=== PATIENT | female | born 1945 | race Caucasian/White ===

== ENCOUNTER 2019-11-29 16:18 | Inpatient (IN) | payer MEDICARE, SELFPAY ==
--- NOTE | ~2019-11-29 | CT_ITS ---
EXAMINATION: CTA chest PE protocol DATE: 11/30/2019 16:28 INDICATION: Shortness of breath. Tachycardia. TECHNIQUE: Computed tomography angiography (CTA) of the chest was performed with 100 mL Omnipaque-350 intravenous contrast timed to evaluate the pulmonary arteries. Coronal maximum intensity projection 3D-reconstructions were created by the technologist. Automated exposure control and iterative reconst ruction technique were employed. The dose-length product was 406.35 mGy-cm. COMPARISON: CT abdomen and pelvis 11/29/2019, chest 2 views 05/14/2017 FINDINGS: Lung volumes are small. There are widespread peripheral reticular opacities associated with mild groundglass opacities. There is mild atelectasis in the inferior lungs. There are small pleural effusions. Cardiomegaly is noted. There are coronary artery calcifications. No pericardial effusion. There is no pulmonary embolus. There is a large sliding hiatal hernia. There is mild mediastinal lym phadenopathy. There is contrast in the gallbladder, which is normal in size. There is a small volume of ascites. There is severe thoracic spondylosis. IMPRESSION: 1. No pulmonary embolus. Sensitivity is mildly decreased by motion artifact. 2. Diffuse lung disease, likely chronic interstitial lung disease in a pattern of nonspecific interst itial pneumonia (NSIP). Superimposed mild pulmonary edema cannot be excluded. 3. Small pleural effusions. 4. Small volume of ascites. 5. Large sliding hiatal hernia. 6. Cardiomegaly. Reviewed, dictated and finalized at location A. IMPRESSION: 1. No pulmonary embolus. Sensitivity is mildly decreased by motion artifact. 2. Diffuse lung disease, likely chronic interstitial lung disease in a pattern of nonspecific interstitial pneumonia (NSIP). Superimposed mild pulmonary edema cannot be excluded. 3. Small pleural effusions. 4. Small volume of ascites. 5. Large sliding hiatal hernia. 6. Cardiomegaly.
--- NOTE | ~2019-11-29 | CT_ITS ---
EXAMINATION: CTA abdomen pelvis DATE: 11/29/2019 17:32 INDICATION: Lower abdominal pain TECHNIQUE: Computed tomographic angiography (CTA) of the abdomen and pelvis was performed with 100 mL Omnipaque-350 intravenous contrast. Maximum intensity projection 3D-reconstructions of the aorta and other arteries were constructed by the technologist on a separate workstation. The dose-length produ ct (DLP) was 642.84 mGy-cm. Automated exposure control and iterative reconstruction technique were em ployed. COMPARISON: None. FINDINGS: There is a 6 mm nodule of the left lower lobe on image 9. There is mild atelectasis of the visualized lower lobes. Cardiomegaly is noted. There is a moderate-sized hiatal hernia. The liver, sp vasyl, pancreas, gallbladder, and adrenal glands are normal. The kidneys are unremarkable. No patholog ically enlarged abdominal or pelvic lymph nodes are identified. There is a large volume of colonic st ool and mild distention of the colon without focal transition point. The bladder is decompressed by a catheter. There is no free intraperitoneal gas. There is levoscoliosis and severe spondylosis of the lumbar spine. There is no aneurysm or dissection of the aorta. A portion of the left hepatic blood supply arises fr om the left gastric artery. The common hepatic artery arises from the celiac axis. The right hepatic artery arises from the superior mesenteric artery. Single renal arteries are present bilaterally. IMPRESSION: 1. Large volume of colonic stool and mild colonic distention without focal transition point, likely i leus. 2. No aneurysm or dissection of the aorta. 3. 6 mm nodule of the left lower lobe. Follow-up CT in 6-12 months is recommended. Reviewed, dictated and finalized at location A. IMPRESSION: 1. Large volume of colonic stool and mild colonic distention without focal lima sition point, likely ileus. 2. No aneurysm or dissection of the aorta. 3. 6 mm nodule of the left lower lobe. Follow-up CT in 6-12 months is recommend ed.
--- NOTE | ~2019-11-29 | XR_ITS ---
EXAMINATION: XR abdomen/kub 1V INDICATION: Constipation and continued abdominal pain TECHNIQUE: Supine view of the abdomen is obtained. COMPARISON: CT from yesterday FINDINGS: There is a large volume of persistent stool in the right colon. Stool throughout the remain joshua of the colon appears to of largely passed. Contrast from yesterday's CT examination opacifies the urinary bladder. There is lumbar levoscoliosis. IMPRESSION: 1. Persistent large volume of stool in the right colon with apparent interval passage of much of the remaining stool. Reviewed, dictated and finalized at location B. IMPRESSION: 1. Persistent large volume of stool in the right colon with apparent interval p assage of much of the remaining stool.
--- NOTE | ~2019-11-29 | XR_ITS ---
EXAMINATION: XR chest 1V portable INDICATION: Shortness of breath TECHNIQUE: Portable AP chest at 1831 hours COMPARISON: 08/05/2018 FINDINGS: The lung volumes are low. There is mild atelectasis of the lung bases. No pleural effusion or pneumothorax is identified. Cardiomegaly is noted. There is a moderate-sized hiatal hernia. IMPRESSION: 1. Mild atelectasis of the lung bases. 2. Cardiomegaly. 3. Moderate-sized hiatal hernia. Reviewed, dictated and finalized at location A.
--- NOTE | ~2019-11-29 | XR_ITS ---
EXAMINATION: XR chest 1V portable EXAM DATE: 12/05/2019 06:52 INDICATION: Chronic interstitial lung disease. Pneumonia. TECHNIQUE: Portable AP frontal chest x-ray was obtained. Comparison is made to prior examination from 11/29/2019. FINDINGS: The cardiomediastinal silhouette is prominent but magnified on this AP technique. Cardiac s ilhouette is stable in size compared to prior exam. Abnormal reticulation, patient's chronic intersti tial lung disease. Development of some small more confluent patchy basilar regions, mostly retrocardi ac, probably superimposed acute airspace disease. There is no pneumothorax suspected. There are no pl eural effusions. There are mild bony degenerative changes. IMPRESSION: Development of patchy basilar opacities probably acute infectious process on chronic int erstitial lung disease. Reviewed, dictated and finalized at location A. IMPRESSION: Development of patchy basilar opacities probably acute infectious process on chronic interstitial lung disease.
--- NOTE | ~2019-11-29 | XR_ITS ---
EXAMINATION: XR abdomen obstructive series EXAM DATE: 12/07/2019 17:10 INDICATION: Constipation. TECHNIQUE: Frontal upright projection of the upper abdomen, frontal projection of the lower abdomen f or interpretation. Comparison is made to prior examination from 11/30/2019. FINDINGS: There is large amount of ascending and transverse colonic gas, new compared to prior study . There is no organomegaly. There is moderate lumbar levoscoliosis and spondylosis. No free intraperi toneal gas. IMPRESSION: 1. Development of distended air-filled ascending and transverse colon. Reviewed, dictated and finalized at location A.
[2019-11-29 16:28] VITALS: BP 134/83; PULSE 78; RESP 29; TEMP 36.2; O2SAT 98
--- NOTE | 2019-11-29 16:35 | ECG_ITS ---
Measurements Intervals [place] Rate: 77 P: 13 VA: 183 QRS: 75 QRSD: 95 T: -5 QT: 404 QTc: 458 Interpretive Statements SINUS RHYTHM POSSIBLE LEFT ATRIAL ENLARGEMENT CONSIDER INFERIOR INFARCT, AGE INDETERMINATE BORDERLINE ST-T WAVE ABNORMALITY- ANTEROLATERAL LEADS ABNORMAL ECG Electronically Signed On 11-29-2019 20:52:45 CDT by David Elmore D.O.
[2019-11-29 16:36] LABS: Glucose Point of Care 117 (65-105)
[2019-11-29 16:49] LABS: Basophils Absolute Auto 0.1 K/mm3 (0.0-0.1); Basophils Percent Auto 0.6 % (0.2-1.2); Eosinophils Absolute Auto 0.1 K/mm3 (0-0.3); Eosinophils Percent Auto 0.5 % (0-4.4); Hematocrit 46.5 % (37.0-47.0); Immature Granulocyte Absolute 0.18 K/mm3 (0.00-0.031); Immature Granulocyte Percent A 0.9 % (0-0.5); Lymphocytes Absolute Auto 3.04 K/mm3 (0.9-3.2); Lymphocytes Percent Auto 14.9 % (18.3-44.2); Mean Corpuscular HGB Conc 34.4 g/dl (32-36); Mean Corpuscular Volume 84.4 fl (80-100); Mean Platelet Volume 9.6 fl (7.4-10.4); Monocytes Absolute Auto 1.1 K/mm3 (0.1-0.6); Monocytes Percent Auto 5.1 % (2.6-8.5); Neutrophils Absolute Auto 15.9 K/mm3 (1.3-6.7); Platelet Count Result 424 k/mm3 (150-375); Red Blood Count 5.51 M/mm3 (4.2-5.4); Red Cell Distribution Width 12.8 % (11.5-14.5); White Blood Count 20.4 K/mm3 (4.5-10.0)
--- NOTE | 2019-11-29 16:49 | ED.ABDPAIN ---
HPI - Abdominal Pain General Chief Complaint: Abdominal Pain Stated Complaint: ABD Pain, Cramps Time Seen by Provider: 11/29/19 16:42 Source: patient Mode of arrival: ambulatory Limitations: no limitations History of Present Illness HPI narrative: This patient is a 74 year old female who presents for evaluation of dizziness and abdominal pain. Patient reports she has been feeling lightheaded for a couple days. She developed severe lower abdominal pain today. She has associated nausea and worsening lightheadedness. She feels like she is going to pass out. Her son states she was sitting on toilet unable to get up due to feeling so weak. Related Data Home Medications Medication Instructions Recorded Confirmed diclofenac sodium 75 mg 75 mg PO BID 05/18/19 11/29/19 tablet,delayed release lisinopril-hydrochlorothiazide 1 tablet PO DAILY 11/29/19 11/29/19 Allergies Allergy/AdvReac Type Severity Reaction Status Date / Time erythromycin base Allergy Unknown Unknown Verified 11/29/19 17:00 Sulfa (Sulfonamide Allergy Unknown Unknown Verified 11/29/19 17:00 Antibiotics) Review of Systems Review of Systems: All systems reviewed & are unremarkable except as noted in HPI and below Constitutional: Constitutional: Reports fatigue and Reports weakness ENT: Reports dizziness Cardiovascular: Cardiovascular: Denies chest pain Respiratory: Respiratory: Denies cough and Denies dyspnea Gastrointestinal: Gastrointestinal: Reports abdominal pain, Denies constipation, Denies diarrhea, Reports nausea and Denies vomiting Genitourinary: Genitourinary: Denies hematuria, Denies flank pain and Denies vaginal discharge [facility] Past Medical History Medical History (Updated 11/30/19 @ 02:05 by Tana Gordon DO) Anxiety Chronic ankle pain, bilateral Chronic interstitial lung disease however patient denied lung disease at the time of my evaluation Depression Dyslipidemia Essential (primary) hypertension Headache, migraine Hypertension Intractable migraine without aura and without status migrainosus Lichen planus Lumbar spondylosis severe noted on CT scan 11/29/2019 Scar tissue both eye-repair in 2017 Surgical History Surgical History History of cataract extraction 12/18/2014 and 2017 Family History Family History Other Family history of coronary artery disease Family history of lung cancer Family history of throat cancer Hypertension Social History Social History (Updated 11/30/19 @ 01:53 by Tana Gordon DO) Social History: Primary care physician: Dr. 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 Gender identity (if verbalized by the patient): Female Sexual Orientation (if Verbalized by the Patient): Straight or Heterosexual Spiritual care concerns: No Exam Const: General: diaphoretic and ill appearing acutely Orientation/consciousness: patient oriented x3 Eyes: EOM: EOMs intact bilaterally Resp: Effort & Inspection: normal respiratory effort Auscultation: clear to auscultation bilaterally Cardio: Rate: regular rate Rhythm: regular rhythm GI: Inspection: distended GI Palp: Yes Soft to palpation, No Guarding due to palpation present (GI) and No Rigid due to palpation Auscultation: absent bowel sounds Skin: General skin exam: normal color Rashes: no rashes Neuro: General: patient oriented x3 and moves all extremities Course Consultations Consultation #1: I discussed case with Marry. She accepts for dehydration and acute renal failure. Will order blood cultures . No source for anti
[2019-11-29] MEDS: MORPHINE SULFATE 4 MG/ML INJ IV PUSH (16:57)
[2019-11-29] MEDS: SODIUM CHLORIDE 0.9% IV 1,000 ML 999 ML IV CONT ×2 (16:57→17:51)
[2019-11-29] MEDS: ONDANSETRON INJ 4 MG/2 ML VIAL IV PUSH ×2 (16:57→23:10)
[2019-11-29 17:00] VITALS: BP 126/83; PULSE 76; RESP 22; TEMP 36.2; O2SAT 98
[2019-11-29 17:02] LABS: Alanine Aminotransferase 23 U/L (4-35); Albumin Level 5.1 g/dL (3.5-5.1); Alkaline Phosphatase 198 U/L (38-126); Anion Gap 23.6 mmol/L (7-16); Aspartate Amino Transferase 37 U/L (14-36); Bilirubin,Total 0.6 mg/dL (0.2-1.3); Blood Urea Nitrogen 43 mg/dL (7-17); Carbon Dioxide 18 mmol/L (22-30); Chloride 91 mmol/L (98-107); Estimated CRCL calculation 30 ml/min; Estimated Glomerular Filt Rate 37; Glucose 225 mg/dL (65-105); Lipase 294 U/L (23-300); Potassium 3.6 mmol/L (3.4-5.0); Sodium 129 mmol/L (137-145)
[2019-11-29 17:11] LABS: Lactic Acid Reflex 2.3 mmol/L (0.7-2.1)
[2019-11-29 17:48] LABS: Add Urine Microscopic? YES; Appearance Urine Clear (Clear); Bacteria Urine Trace /hpf; Bilirubin Urine Negative (Negative); Blood Urine Negative (Negative); Color Urine Yellow (Yellow); Glucose Urine UA Negative (Negative); Ketones Urine Negative (Negative); Leukocyte Esterase Ur Trace LEU/UL (Negative); Mucus Urine Rare /lpf; Nitrate Urine Negative (Negative); Protein Urine 1+ mg/dL (Negative); Specific Grav Ur 1.026 (1.001-1.035); Squamous Epithelial Cell Urine Occasional /hpf (Few); WBC Urine 0-3 /hpf
[2019-11-29 19:18] VITALS: BP 168/44; PULSE 87; RESP 20; O2SAT 99
[2019-11-29 19:42] VITALS: BP 162/95; PULSE 92; RESP 18; TEMP 36.4; O2SAT 98
[2019-11-29 19:44] LABS: Troponin I < 0.012 ng/mL (0.000-0.034)
[2019-11-29 19:57] LABS: Reflex Lactic Acid Yes or No Add Lactic
[2019-11-29 20:00] VITALS: BP 151/91; PULSE 106; RESP 20; TEMP 37; O2SAT 99; BMI 31.2
--- NOTE | 2019-11-29 20:18 | ADMGEN ---
This patient, Corrine Leger, was admitted to [facility] Surg Room 303-01. Patient/family oriented to hospital policies and general routines including ID bracelet, bed and alarms, visiting hours, pain management, procedures, bathroom and other care routines, personal items, smoking policy, room service/diet, and visiting hours. Valuables list has been completed. Information on how to activate the Rapid Response Team has been discussed. Patient/Family are encouraged to report perceived risks to care and to ask questions if they do not understand what they are told or what they should do.
[2019-11-29 20:30] LABS: Lactic Acid 2.6 mmol/L (0.7-2.1)
[2019-11-29] MEDS: SODIUM CHLORIDE 0.9% IV 1,000 ML 125 ML IV CONT (20:46)
[2019-11-29 22:30] VITALS: BP 136/85; PULSE 98; RESP 20; TEMP 36.7; O2SAT 98
[2019-11-30] VITALS (9 sets, daily range): BP systolic 100–126; BP diastolic 64–80; PULSE 100–124; RESP 20; TEMP 36.2–37.1; O2SAT 93–98
--- NOTE | 2019-11-30 01:02 | PM.IMHP ---
H&P: HPI History of Present Illness Chief complaint: acute renal failure, dehydration, Narrative: Date and time of patient contact: 11/29/2019 at 10:30 p.m. Corrine Leger is a 74 year old female with a past medical history of intermittent constipation, hypertension and migraines who presented to the ER with abdominal pain and weakness. 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 She started feeling lightheaded a few days ago. She reports that she has been lightheaded when she is sitting down but it is worse when she is up and moving. she feels as if she is going to pass out when she gets up to move. She thought it was just because of the heat. She was having some intermittent nausea as well but denies having any vomiting. she does have intermittent constipation she had a very small amount of stool yesterday. She does not know if the stool was hard. She denies any hematochezia or melena. Her last complete bowel movement was 3 or 4 days ago. She reports that she has had abdominal pain for the last 3 days the abdominal pain is generalized. The location of her abdominal pain is variable each time it occurs. The pain is crampy in nature and has become progressively worse in pain. Her pain is currently an 8/10 in intensity. She reports that over the last 24 hours she has become so because she was unable to stand up off the toilet. She feels as if she has to have a bowel movement. she denies any chest pain or specific shortness of breath. She has not had any cough or congestion. Review of Systems Review of Systems: Narrative: 12 systems were reviewed with pertinent positives and negatives per HPI. Except as documented in the HPI, all other systems were reviewed and are negative. [facility] Past Medical History Medical History (Updated 11/30/19 @ 02:05 by Tana oGrdon DO) Anxiety Chronic ankle pain, bilateral Chronic interstitial lung disease however patient denied lung disease at the time of my evaluation Depression Dyslipidemia Essential (primary) hypertension Headache, migraine Hypertension Intractable migraine without aura and without status migrainosus Lichen planus Lumbar spondylosis severe noted on CT scan 11/29/2019 Scar tissue both eye-repair in 2017 Surgical History Surgical History History of cataract extraction 12/18/2014 and 2017 Family History Family History Other Family history of coronary artery disease Family history of lung cancer Family history of throat cancer Hypertension Social History Social History (Updated 11/30/19 @ 01:53 by Tana Gordon DO) Social History: Primary care physician: Dr. Rustam Ulloa Code status: Full code Smoking status: Never smoker Second hand tobacco smoke exposure: No Alcohol intake: never Substance use: never Substance use type: does not use Living arrangements: alone Additional occupation/education comments: She works at a [employer] facility. Gender identity (if verbalized by the patient): Female Sexual Orientation (if Verbalized by the Patient): Straight or Heterosexual Spiritual care concerns: No Meds Home Medications and Allergies Home Medications Medication Instructions Recorded Confirmed Type sumatriptan succinate 50 mg tablet 50 mg PO .COMPLEX PRN #12 tablet 03/27/19 11/29/19 Rx diclofenac sodium 75 mg 75 mg PO BID 05/18/19 11/29/19 History tablet,delayed release pravastatin 20 mg tablet 20 mg PO .QHS #90 tablet 07/31/19 11/29/19 Rx lisinopril-hydrochlorothiazide 1 tablet PO DAILY 11/29/19 11/29/19 History Allergies Allergy/AdvReac Type Severity Reaction Status Date / Time erythromycin base Allergy Unknown Unknown Verified 11/29/19 17:00 Sulfa (Sulfonamide Allergy Unknown Unknown Verified 11/29/19 17:00 Antibiotics)
[2019-11-30] MEDS: DOCUSATE SODIUM 400 MG/400 ML ENEMA RECTAL (01:49)
[2019-11-30 02:27] LABS: Lactic Acid Reflex 5.6 mmol/L (0.7-2.1)
[2019-11-30] MEDS: SODIUM CHLORIDE 0.9% IV 1,000 ML 999 ML IV CONT (02:43)
[2019-11-30] MEDS: SODIUM CHLORIDE 0.9% IV 1,000 ML 125 ML IV CONT ×2 (05:31→16:49)
[2019-11-30 06:31] LABS: Hematocrit 45.2 % (37.0-47.0); Hemoglobin 15.1 g/dL (12.0-15.0); Mean Corpuscular HGB Conc 33.4 g/dl (32-36); Mean Corpuscular Volume 86.8 fl (80-100); Mean Platelet Volume 9.8 fl (7.4-10.4); Platelet Count Result 387 k/mm3 (150-375); Red Blood Count 5.21 M/mm3 (4.2-5.4); Red Cell Distribution Width 13.1 % (11.5-14.5); White Blood Count 19.9 K/mm3 (4.5-10.0)
[2019-11-30 07:04] LABS: Alanine Aminotransferase 17 U/L (4-35); Albumin Level 3.3 g/dL (3.5-5.1); Alkaline Phosphatase 404 U/L (38-126); Anion Gap 14.4 mmol/L (7-16); Aspartate Amino Transferase 42 U/L (14-36); Bilirubin,Total 0.6 mg/dL (0.2-1.3); Blood Urea Nitrogen 43 mg/dL (7-17); Calcium 7.9 mg/dL (8.4-10.2); Carbon Dioxide 19 mmol/L (22-30); Chloride 103 mmol/L (98-107); Estimated CRCL calculation 38 ml/min; Estimated Glomerular Filt Rate 49; Glucose 151 mg/dL (65-105); Potassium 3.4 mmol/L (3.4-5.0); Sodium 133 mmol/L (137-145)
[2019-11-30 08:10] LABS: Band Neutrophils Percent 18 % (0-6); Lymphocytes Absolute Manual 1.19 K/mm3 (1.1-4.5); Monocytes Absolute Manual 0.39 K/mm3 (0.1-0.90); Monocytes Percent Manual 2 % (3-9); Neutrophils Percent Manual 74 % (46-73); Platelet Estimate Adequate (Adequate); Total Cells Counted 100
[2019-11-30] MEDS: DOCUSATE SODIUM 100 MG CAPSULE PO ×2 (10:34→20:51)
[2019-11-30] MEDS: ENOXAPARIN 40 MG/0.4 ML SYRINGE SUB-Q (10:37)
[2019-11-30 11:53] LABS: Hemoglobin A1C 5.6 % (<5.7)
--- NOTE | 2019-11-30 13:54 | PM.IMPN ---
Progress Note: A&P Assessment and Plan (1) Leukocytosis: Code(s): D72.829 - Elevated white blood cell count, unspecified Status: Acute Assessment and Plan: Uncertain etiology. No CT evidence of acute infection or fever. Possibly due to dehydration, hemoconcentration or acute phase reactant. Repeat CBC this morning showed only slight improvement from 20,400 to 19,900 with neutrophil count at 74%. She does not have any urinary symptoms. She is having some shortness of breath but denies any cough, fevers, chills. She is requiring 1 L of oxygen. I will order CTA Chest to further evaluate for PE or underlying pneumonia. Will recheck a stat KUB to further evaluate her constipation improvement or for any signs of perforation and recheck CBC, CMP, lactic acid. Continue monitoring leukocytosis and further work up. (2) Lactic acidosis: Code(s): E87.2 - Acidosis Status: Acute Assessment and Plan: uncertain etiology. recheck lactic at 2:00 a.m. was more elevated at 5.6. Will recheck since she is still having issues. She has been afebrile, BP stable, respiratory rate stable, stable on 1L via NC at 95%, and she has been tachycardic. Still not found to have an underlying infection at this time, so no IV antibiotics have been started at this time. (3) Constipation: Code(s): K59.00 - Constipation, unspecified Status: Acute Assessment and Plan: CTA of her abdomen pelvis was ordered in the ER which found her to have large volume of colonic stool and mild colonic distension without focal transition point, likely ileus. Otherwise no acute abnormality to her abdomen. Colace enema Was given last night and she has had multiple bowel movements since then and is still having abdominal cramping. Repeat KUB Showed persistent large volume of stool in the right colon with apparent interval passage of much of the remaining stool. Will continue with treatment of constipation with MiraLax b.i.d., Colace b.i.d., and give 1 dose of mineral oil continue monitoring bowel movements. (4) Sinus tachycardia: Code(s): R00.0 - Tachycardia, unspecified Status: Acute Assessment and Plan: Possibly due to volume depletion. however the patient was not tachycardic in the ER and is become tachycardic since arrival to the floor. The greater portion of this is likely due to the patient's pain. Concerned with the patient's tachycardia and the feeling that she is having shallow breathing and is short of breath. Her pulse ox is 95% on 1 L via nasal cannula but feels like she needs more oxygen. will order a stat CTA of her chest to rule out an underlying pulmonary embolism or underlying infection causing her tachycardia tele shows sinus tachycardia with a heart rate of 107, with some PVCs and PACs noted. No acute arrhythmia. Continue IV fluid hydration and monitor on telemetry (5) Acute renal injury: Code(s): N17.9 - Acute kidney failure, unspecified Status: Acute Assessment and Plan: possibly due to volume depletion and Nephro toxic medication use with diclofenacand MANNIE-inhibitor use at home. Her creatinine has improved down to normal at 1.0 after IV fluid hydration overnight will continue IV fluids at this time and monitoring renal function, Urine output, and avoid nephrotoxic medications. (6) Incidental lung nodule, > 3mm and < 8mm: Code(s): R91.1 - Solitary pulmonary nodule Status: Acute Assessment and Plan: follow-up CT in 6-12 months (7) Hyponatremia: Code(s): E87.1 - Hypo-osmolality and hyponatremia Status: Acute Assessment and Plan: Acute on chronic. Likely
[2019-11-30 14:05] LABS: Hematocrit 41.9 % (37.0-47.0); Hemoglobin 14.4 g/dL (12.0-15.0); Mean Corpuscular HGB Conc 34.4 g/dl (32-36); Mean Corpuscular Hemoglobin 29.4 pg (26-34); Mean Corpuscular Volume 85.5 fl (80-100); Mean Platelet Volume 9.7 fl (7.4-10.4); Platelet Count Result 302 k/mm3 (150-375); Red Cell Distribution Width 13.3 % (11.5-14.5); White Blood Count 21.8 K/mm3 (4.5-10.0)
[2019-11-30 14:16] LABS: Lactic Acid Reflex 2.5 mmol/L (0.7-2.1)
[2019-11-30 14:17] LABS: Alanine Aminotransferase 18 U/L (4-35); Albumin Level 3.3 g/dL (3.5-5.1); Alkaline Phosphatase 396 U/L (38-126); Anion Gap 12.8 mmol/L (7-16); Aspartate Amino Transferase 35 U/L (14-36); Bilirubin,Total 0.4 mg/dL (0.2-1.3); Blood Urea Nitrogen 37 mg/dL (7-17); Calcium 7.7 mg/dL (8.4-10.2); Carbon Dioxide 18 mmol/L (22-30); Chloride 103 mmol/L (98-107); Estimated CRCL calculation 46 ml/min; Estimated Glomerular Filt Rate > 60; Glucose 180 mg/dL (65-105); Potassium 3.8 mmol/L (3.4-5.0); Sodium 130 mmol/L (137-145)
[2019-11-30 14:28] LABS: Band Neutrophils Percent 12 % (0-6); Monocytes Absolute Manual 1.52 K/mm3 (0.1-0.90); Monocytes Percent Manual 7 % (3-9); Neutrophils Absolute Manual 18.96 K/mm3 (1.7-7.2); Neutrophils Percent Manual 75 % (46-73); Platelet Estimate Adequate (Adequate); Total Cells Counted 100
[2019-11-30] MEDS: DICYCLOMINE HCL 10 MG CAPSULE 20 MG PO ×2 (16:45→20:50)
[2019-11-30] MEDS: MINERAL OIL 30 ML UDC PO (16:46)
[2019-11-30] MEDS: METOCLOPRAMIDE HCL INJ 10 MG/2 ML VIAL IV PUSH (16:47)
[2019-11-30] MEDS: polyethylene glycoL 3350 17 GM POWD.PACK PO (16:47)
[2019-11-30 17:02] LABS: Reflex Lactic Acid Yes or No Add Lactic
[2019-11-30 17:24] LABS: Lactic Acid 2.6 mmol/L (0.7-2.1)
[2019-11-30] MEDS: SODIUM CHLORIDE 0.9% IV 1,000 ML 75 ML IV CONT (18:46)
[2019-12-01] VITALS (13 sets, daily range): BP systolic 152–157; BP diastolic 84–93; PULSE 94–111; RESP 18–22; TEMP 36.4–36.8; O2SAT 95–97
[2019-12-01] MEDS: SODIUM CHLORIDE 0.9% IV 1,000 ML 75 ML IV CONT ×2 (04:10→18:07)
[2019-12-01 05:54] LABS: Basophils Percent Auto 0.1 % (0.2-1.2); Hematocrit 38.2 % (37.0-47.0); Hemoglobin 12.9 g/dL (12.0-15.0); Immature Granulocyte Percent A 0.6 % (0-0.5); Lymphocytes Absolute Auto 0.67 K/mm3 (0.9-3.2); Lymphocytes Percent Auto 3.8 % (18.3-44.2); Mean Corpuscular HGB Conc 33.8 g/dl (32-36); Mean Corpuscular Hemoglobin 28.9 pg (26-34); Mean Corpuscular Volume 85.5 fl (80-100); Mean Platelet Volume 9.5 fl (7.4-10.4); Monocytes Absolute Auto 1.7 K/mm3 (0.1-0.6); Monocytes Percent Auto 9.7 % (2.6-8.5); Neutrophils Absolute Auto 15.1 K/mm3 (1.3-6.7); Neutrophils Percent Auto 85.8 % (45.5-73.1); Platelet Count Result 267 k/mm3 (150-375); Red Blood Count 4.47 M/mm3 (4.2-5.4); Red Cell Distribution Width 13.4 % (11.5-14.5); White Blood Count 17.6 K/mm3 (4.5-10.0)
[2019-12-01 06:02] LABS: Lactic Acid 1.9 mmol/L (0.7-2.1)
[2019-12-01 06:03] LABS: Alanine Aminotransferase 17 U/L (4-35); Albumin Level 3.2 g/dL (3.5-5.1); Alkaline Phosphatase 343 U/L (38-126); Anion Gap 11.6 mmol/L (7-16); Aspartate Amino Transferase 37 U/L (14-36); Bilirubin,Total 0.3 mg/dL (0.2-1.3); Blood Urea Nitrogen 31 mg/dL (7-17); Calcium 7.7 mg/dL (8.4-10.2); Carbon Dioxide 22 mmol/L (22-30); Chloride 100 mmol/L (98-107); Estimated CRCL calculation 58 ml/min; Estimated Glomerular Filt Rate > 60; Glucose 125 mg/dL (65-105); Potassium 3.6 mmol/L (3.4-5.0); Sodium 130 mmol/L (137-145)
[2019-12-01] MEDS: DOCUSATE SODIUM 100 MG CAPSULE PO ×2 (09:32→21:23)
[2019-12-01] MEDS: DICYCLOMINE HCL 10 MG CAPSULE 20 MG PO ×4 (09:32→21:24)
[2019-12-01] MEDS: ENOXAPARIN 40 MG/0.4 ML SYRINGE SUB-Q (09:33)
[2019-12-01] MEDS: ACETAMINOPHEN 325 MG TABLET 650 MG PO (09:33)
--- NOTE | 2019-12-01 13:39 | PM.IMPN ---
Progress Note: A&P Assessment and Plan (1) Leukocytosis: Code(s): D72.829 - Elevated white blood cell count, unspecified Status: Acute Assessment and Plan: WCC improving BC negative to date Pt started on IV rocephin and oral doxycycline CTchest ? pneumonia. (2) Lactic acidosis: Code(s): E87.2 - Acidosis Status: Acute Assessment and Plan: uncertain etiology. ? CAP (3) Constipation: Code(s): K59.00 - Constipation, unspecified Status: Acute Assessment and Plan: CTA of her abdomen pelvis was ordered in the ER which found her to have large volume of colonic stool and mild colonic distension without focal transition point, likely ileus. Constipation improving on MiraLax b.i.d., Colace b.i.d and give 1 dose of mineral oil Having good bowel movements. (4) Sinus tachycardia: Code(s): R00.0 - Tachycardia, unspecified Status: Acute Assessment and Plan: Possibly due to volume depletion. or Sepsis started iv ABX today Long discussion with son discuused labs and XRay and CT scans explained ? CAP Pt does not look so unwell for COVID no fevers mentioned (5) Acute renal injury: Code(s): N17.9 - Acute kidney failure, unspecified Status: Resolved Assessment and Plan: With IV fluids at this time and monitoring renal function, Urine output, and avoid nephrotoxic medications. (6) Incidental lung nodule, > 3mm and < 8mm: Code(s): R91.1 - Solitary pulmonary nodule Status: Acute Assessment and Plan: follow-up CT in 6-12 months (7) Hyponatremia: Code(s): E87.1 - Hypo-osmolality and hyponatremia Status: Acute Assessment and Plan: Acute on chronic. (8) Hyperglycemia: Code(s): R73.9 - Hyperglycemia, unspecified Status: Acute Assessment and Plan: Patient denies history of diabetes. Hemoglobin A1c was 5.6%. No need to further evaluate her glucose levels. Subjective Date/time seen: 12/01/19 13:39 Interval history: 74 year old female with a past medical history of intermittent constipation, hypertension and migraines who presented to the ER with abdominal pain and weakness. 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 SOB ongoing, cough started today. no fever. headache history of headache Review of Systems Review of Systems: All systems reviewed & are unremarkable except as noted in HPI and below Exam Const: General: cooperative and healthy appearing; No in distress Nutritional Appearance: overweight Orientation/consciousness: oriented to person HENMT: Head: normal to inspection Resp: Effort & Inspection: tachypneic and other (Few wheezes in lungs ) Cardio: Rate: regular rate Rhythm: regular rhythm GI: Inspection: normal to inspection GI Palp: No abdominal tenderness, No Guarding due to palpation present (GI) and No Hepatomegaly present Auscultation: normal bowel sounds Neuro: General: oriented to person Objective Data Vital Signs Vital Signs: Vital Signs - 24 hr 11/30/19 14:00 11/30/19 16:00 11/30/19 20:00 Temperature 36.2 C L Pulse Rate 107 H 107 H 102 H Respiratory Rate 20 Blood Pressure 126/80 Pulse Oximetry 93 11/30/19 22:00 12/01/19 00:00 12/01/19 04:00 Temperature 37.1 C Pulse Rate 100 103 H 100 Respiratory Rate 20 Blood Pressure 123/70 Pulse Oximetry 98 12/01/19 05:35 12/01/19 12:00 Temperature 36.7 C Pulse Rate 108 H 111 H Respiratory Rate 21 H Blood Pressure 152/88 H Pulse Oximetry 97 Intake/Output Inta
[2019-12-01] MEDS: ALBUTEROL SULFATE NEB 2.5 MG/0.5 ML INH INHALATION ×2 (14:42→20:42)
[2019-12-01] MEDS: polyethylene glycoL 3350 17 GM POWD.PACK PO (18:09)
[2019-12-01] MEDS: DOXYCYCLINE HYCLATE 100 MG TABLET PO (21:25)
[2019-12-02] VITALS (14 sets, daily range): BP systolic 152–162; BP diastolic 81–98; PULSE 88–109; RESP 16–22; TEMP 36.7–37; O2SAT 93–98
[2019-12-02] MEDS: ALBUTEROL SULFATE NEB 2.5 MG/0.5 ML INH INHALATION (03:10)
--- NOTE | 2019-12-02 03:25 | PCRCNOTE ---
03:22 Gave PT PRN NEB. UPDATED RN AFTER NEB TX ABOUT FINE CRACKLES IN LUNG SOUNDS THROUGHOUT AND BASES ALSO DIM.
--- NOTE | 2019-12-02 03:46 | PC.NURSE ---
O3:20 pt c/o increased sob, prn breathing treatment given and fan,iv fluids running 75 ml/hr,lungs with fine crackles bases,more in lt base,fluids stopped, Dr Evan boland given condition report, IV fluid order to dc,no lasix now.
[2019-12-02 06:15] LABS: Hematocrit 32.8 % (37.0-47.0); Hemoglobin 11.1 g/dL (12.0-15.0); Mean Corpuscular HGB Conc 33.8 g/dl (32-36); Mean Corpuscular Hemoglobin 28.8 pg (26-34); Mean Platelet Volume 9.3 fl (7.4-10.4); Platelet Count Result 250 k/mm3 (150-375); Red Blood Count 3.86 M/mm3 (4.2-5.4); Red Cell Distribution Width 13.3 % (11.5-14.5); White Blood Count 13.8 K/mm3 (4.5-10.0)
[2019-12-02 06:47] LABS: Anion Gap 12.7 mmol/L (7-16); Blood Urea Nitrogen 24 mg/dL (7-17); Calcium 8.1 mg/dL (8.4-10.2); Carbon Dioxide 22 mmol/L (22-30); Chloride 100 mmol/L (98-107); Estimated CRCL calculation 67 ml/min; Estimated Glomerular Filt Rate > 60; Glucose 126 mg/dL (65-105); Potassium 3.7 mmol/L (3.4-5.0); Sodium 131 mmol/L (137-145)
[2019-12-02] MEDS: DOXYCYCLINE HYCLATE 100 MG TABLET PO ×2 (08:05→20:07)
[2019-12-02] MEDS: DICYCLOMINE HCL 10 MG CAPSULE 20 MG PO ×4 (08:05→20:07)
[2019-12-02] MEDS: DOCUSATE SODIUM 100 MG CAPSULE PO ×2 (08:05→20:07)
[2019-12-02] MEDS: ENOXAPARIN 40 MG/0.4 ML SYRINGE SUB-Q (08:06)
[2019-12-02] MEDS: polyethylene glycoL 3350 17 GM POWD.PACK PO ×2 (08:06→16:35)
--- NOTE | 2019-12-02 11:56 | PM.IMPN ---
Progress Note: A&P Assessment and Plan (1) Leukocytosis: Code(s): D72.829 - Elevated white blood cell count, unspecified Status: Acute Assessment and Plan: WCC improving BC negative to date Pt started on IV rocephin and oral doxycycline CTchest ? pneumonia. (2) Lactic acidosis: Code(s): E87.2 - Acidosis Status: Acute Assessment and Plan: uncertain etiology. ? CAP (3) Constipation: Code(s): K59.00 - Constipation, unspecified Status: Acute Assessment and Plan: CTA of her abdomen pelvis was ordered in the ER which found her to have large volume of colonic stool and mild colonic distension without focal transition point, likely ileus. Constipation improving on MiraLax b.i.d., Colace b.i.d and give 1 dose of mineral oil Having good bowel movements. (4) Sinus tachycardia: Code(s): R00.0 - Tachycardia, unspecified Status: Acute Assessment and Plan: Possibly due to volume depletion. or Sepsis started iv ABX today likely secondary to CAP can dc telemetry (5) Acute renal injury: Code(s): N17.9 - Acute kidney failure, unspecified Status: Resolved Assessment and Plan: With IV fluids at this time and monitoring renal function, Urine output, and avoid nephrotoxic medications.stop iv fluids (6) Incidental lung nodule, > 3mm and < 8mm: Code(s): R91.1 - Solitary pulmonary nodule Status: Acute Assessment and Plan: follow-up CT in 6-12 months (7) Hyponatremia: Code(s): E87.1 - Hypo-osmolality and hyponatremia Status: Acute Assessment and Plan: Acute on chronic. (8) Hyperglycemia: Code(s): R73.9 - Hyperglycemia, unspecified Status: Acute Assessment and Plan: Patient denies history of diabetes. Hemoglobin A1c was 5.6%. No need to further evaluate her glucose levels. Subjective Date/time seen: 12/02/19 11:56 Interval history: 74 year old female with a past medical history of intermittent constipation, hypertension and migraines who presented to the ER with abdominal pain and weakness. 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 SOB ongoing, cough ongoing. no fever. headache history of headache. Wcc improving after starting IV abx. Bc negative to date Review of Systems Respiratory: Respiratory: Reports chest congestion, Reports cough and Reports dyspnea Exam Const: General: cooperative and healthy appearing; No in distress Nutritional Appearance: overweight Orientation/consciousness: oriented to person Resp: Effort & Inspection: tachypneic and other (Few wheezes in lungs ) Cardio: Rate: regular rate Rhythm: regular rhythm GI: Inspection: normal to inspection Auscultation: normal bowel sounds Neuro: General: oriented to person Objective Data Vital Signs Vital Signs: Vital Signs - 24 hr 12/01/19 12:00 12/01/19 14:00 12/01/19 14:07 Temperature 36.4 C Pulse Rate 111 H 102 H Respiratory Rate 18 Blood Pressure 157/84 H Pulse Oximetry 96 96 12/01/19 14:42 12/01/19 14:49 12/01/19 16:00 Temperature Pulse Rate 95 98 94 Respiratory Rate 18 18 Blood Pressure Pulse Oximetry 12/01/19 20:00 12/01/19 20:43 12/01/19 20:54 Temperature Pulse Rate 102 H 99 103 H Respiratory Rate 20 22 H 20 Blood Pressure Pulse Oximetry 96 95 12/01/19 21:34 12/02/19 00:00 12/02/19 03:10 Temperature 36.8 C Pulse Rate 102 H 102 H 109 H Respiratory Rate 20 Blood Pressure 155/93 H Pulse Oximetry 96 93 12/02/19 03:11 12/02/19
--- NOTE | 2019-12-02 13:57 | PCPTNOTE ---
Patient refused treatment this session stating that she was fatigued from OT this AM. Pt requested that therapy come back tomorrow.
[2019-12-02] MEDS: FAMOTIDINE 10 MG TABLET PO (20:37)
[2019-12-03 06:00] VITALS: BP 156/84; PULSE 82; RESP 20; TEMP 36.9; O2SAT 97
[2019-12-03 06:35] LABS: Hematocrit 31.3 % (37.0-47.0); Hemoglobin 10.7 g/dL (12.0-15.0); Mean Corpuscular HGB Conc 34.2 g/dl (32-36); Mean Corpuscular Hemoglobin 28.9 pg (26-34); Mean Corpuscular Volume 84.6 fl (80-100); Mean Platelet Volume 9.6 fl (7.4-10.4); Platelet Count Result 261 k/mm3 (150-375); Red Cell Distribution Width 13.6 % (11.5-14.5); White Blood Count 11.7 K/mm3 (4.5-10.0)
[2019-12-03 08:44] VITALS: BP 146/81; PULSE 88; RESP 18; O2SAT 98
[2019-12-03] MEDS: ENOXAPARIN 40 MG/0.4 ML SYRINGE SUB-Q (08:46)
[2019-12-03] MEDS: DOXYCYCLINE HYCLATE 100 MG TABLET PO ×2 (08:46→21:20)
[2019-12-03] MEDS: DOCUSATE SODIUM 100 MG CAPSULE PO (08:47)
[2019-12-03] MEDS: DICYCLOMINE HCL 10 MG CAPSULE 20 MG PO ×4 (08:47→21:20)
[2019-12-03] MEDS: FAMOTIDINE 10 MG TABLET PO ×2 (08:47→21:20)
--- NOTE | 2019-12-03 10:17 | ECG_ITS ---
Measurements Intervals Many Rate: 87 P: 8 OK: 188 QRS: 16 QRSD: 98 T: -12 QT: 352 QTc: 424 Interpretive Statements SINUS RHYTHM BORDERLINE R WAVE PROGRESSION, ANTERIOR LEADS CONSIDER INFERIOR INFARCT, AGE INDETERMINATE BORDERLINE T WAVE ABNORMALITY- ANTERIOR LEADS BASELINE ARTIFACT- II, III, V3 ABNORMAL ECG Electronically Signed On 12-03-2019 11:39:29 CDT by David Elmore D.O.
[2019-12-03] MEDS: lisinopriL 10 MG TABLET PO (10:37)
[2019-12-03] MEDS: hydroCHLOROthiazide 12.5 MG CAPSULE PO (10:37)
[2019-12-03 11:00] VITALS: O2SAT 96
[2019-12-03 11:45] VITALS: O2SAT 93
--- NOTE | 2019-12-03 11:50 | PM.IMPN ---
Progress Note: A&P Assessment and Plan (1) Leukocytosis: Code(s): D72.829 - Elevated white blood cell count, unspecified Status: Acute Assessment and Plan: WCC improving BC negative to date Pt started on IV rocephin and oral doxycycline CTchest ? pneumonia. (2) Lactic acidosis: Code(s): E87.2 - Acidosis Status: Acute Assessment and Plan: uncertain etiology. ? CAP (3) Constipation: Code(s): K59.00 - Constipation, unspecified Status: Acute Assessment and Plan: CTA of her abdomen pelvis was ordered in the ER which found her to have large volume of colonic stool and mild colonic distension without focal transition point, likely ileus. Constipation improving on MiraLax b.i.d., Colace b.i.d and give 1 dose of mineral oil Having good bowel movements. (4) Sinus tachycardia: Code(s): R00.0 - Tachycardia, unspecified Status: Resolved Assessment and Plan: Possibly due to volume depletion. or Sepsis started iv ABX today likely secondary to CAP can dc telemetry mild left sided chest pain today ordered EKG and Troponin (5) Acute renal injury: Code(s): N17.9 - Acute kidney failure, unspecified Status: Resolved Assessment and Plan: (6) Incidental lung nodule, > 3mm and < 8mm: Code(s): R91.1 - Solitary pulmonary nodule Status: Acute Assessment and Plan: follow-up CT in 6-12 months (7) Hyponatremia: Code(s): E87.1 - Hypo-osmolality and hyponatremia Status: Acute Assessment and Plan: Acute on chronic. Na 131 (8) Hyperglycemia: Code(s): R73.9 - Hyperglycemia, unspecified Status: Acute Assessment and Plan: Patient denies history of diabetes. Hemoglobin A1c was 5.6%. No need to further evaluate her glucose levels. Subjective Date/time seen: 12/03/19 11:50 Interval history: 74 year old female with a past medical history of intermittent constipation, hypertension and migraines who presented to the ER with abdominal pain and weakness. 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 SOB ongoing, cough ongoing. no fever. headache history of headache. Wcc improving after starting IV abx. Bc negative to date. Pt had episode of chest pain, EKG and trop ordered. Pt chest pain is mild left sided. Review of Systems Review of Systems: All systems reviewed & are unremarkable except as noted in HPI and below Cardiovascular: Comments: left sided chest pain Respiratory: Respiratory: Reports cough and Reports dyspnea Exam Const: General: cooperative and healthy appearing; No in distress Nutritional Appearance: overweight Orientation/consciousness: oriented to person Resp: Effort & Inspection: tachypneic and other (Few wheezes in lungs ) Cardio: Rate: regular rate Rhythm: regular rhythm GI: Inspection: normal to inspection Auscultation: normal bowel sounds Neuro: General: oriented to person Objective Data Vital Signs Vital Signs: Vital Signs - 24 hr 12/02/19 12:00 12/02/19 14:00 12/02/19 20:00 Temperature 37.0 C Pulse Rate 89 98 98 Respiratory Rate 16 16 Blood Pressure 162/98 H Pulse Oximetry 97 97 12/02/19 20:44 12/02/19 22:00 12/03/19 06:00 Temperature 36.9 C 36.9 C Pulse Rate 88 82 Respiratory Rate 20 20 Blood Pressure 152/81 H 156/84 H Pulse Oximetry 96 98 97 12/03/19 08:44 Temperature Pulse Rate 88 Respiratory Rate 18 Blood Pressure 146/81 H Pulse Oximetry 98 Intake/Output Intake/Output: Intake & Output 11/30/19
[2019-12-03 12:08] LABS: Troponin I < 0.012 ng/mL (0.000-0.034)
[2019-12-03 14:00] VITALS: BP 169/78; PULSE 91; RESP 18; TEMP 36.9; O2SAT 98
--- NOTE | 2019-12-03 14:45 | PCOTNOTE ---
Patient report to having a lot of chest pain, nursing staff is aware and EKG was completed. Patient declined to participating in therapy this date due to pain 12/03/2019.
[2019-12-03 15:24] LABS: Troponin I < 0.012 ng/mL (0.000-0.034)
[2019-12-03] MEDS: LIDOCAINE 5% PATCH 1 PATCH TRANSDERM (17:12)
[2019-12-03 18:47] LABS: Troponin I < 0.012 ng/mL (0.000-0.034)
[2019-12-03 22:00] VITALS: BP 155/92; PULSE 95; RESP 20; TEMP 36.9; O2SAT 91
[2019-12-04] MEDS: ONDANSETRON INJ 4 MG/2 ML VIAL IV PUSH (03:11)
[2019-12-04 06:00] VITALS: BP 166/94; PULSE 96; RESP 20; TEMP 37.1; O2SAT 94
[2019-12-04 06:17] LABS: Hematocrit 31.8 % (37.0-47.0); Hemoglobin 11.1 g/dL (12.0-15.0); Mean Corpuscular HGB Conc 34.9 g/dl (32-36); Mean Corpuscular Hemoglobin 28.9 pg (26-34); Mean Corpuscular Volume 82.8 fl (80-100); Mean Platelet Volume 9.3 fl (7.4-10.4); Platelet Count Result 297 k/mm3 (150-375); Red Blood Count 3.84 M/mm3 (4.2-5.4); Red Cell Distribution Width 12.9 % (11.5-14.5)
[2019-12-04 06:37] LABS: Anion Gap 11.6 mmol/L (7-16); Blood Urea Nitrogen 9 mg/dL (7-17); Calcium 8.6 mg/dL (8.4-10.2); Carbon Dioxide 31 mmol/L (22-30); Chloride 88 mmol/L (98-107); Estimated CRCL calculation 79 ml/min; Estimated Glomerular Filt Rate > 60; Glucose 102 mg/dL (65-105); Potassium 2.6 mmol/L (3.4-5.0); Sodium 128 mmol/L (137-145)
[2019-12-04] MEDS: MAG HYDROX/AL HYDROX/SIMETH 30 ML UDC PO ×2 (08:01→15:12)
[2019-12-04] MEDS: FAMOTIDINE 10 MG TABLET PO ×2 (08:02→21:09)
[2019-12-04] MEDS: DICYCLOMINE HCL 10 MG CAPSULE 20 MG PO ×4 (08:02→21:09)
[2019-12-04] MEDS: DOXYCYCLINE HYCLATE 100 MG TABLET PO (09:48)
[2019-12-04] MEDS: hydroCHLOROthiazide 12.5 MG CAPSULE PO (09:48)
[2019-12-04] MEDS: lisinopriL 10 MG TABLET PO (09:48)
[2019-12-04] MEDS: ENOXAPARIN 40 MG/0.4 ML SYRINGE SUB-Q (09:49)
[2019-12-04 14:00] VITALS: BP 162/93; PULSE 104; RESP 22; TEMP 37.2; O2SAT 90
--- NOTE | 2019-12-04 14:33 | PM.IMPN ---
Progress Note: A&P Assessment and Plan (1) Leukocytosis: Code(s): D72.829 - Elevated white blood cell count, unspecified Status: Acute Assessment and Plan: WCC improving BC negative to date Pt started on IV rocephin and oral doxycycline CTchest ? pneumonia. stop doxycycine pt is very nauseated (2) Lactic acidosis: Code(s): E87.2 - Acidosis Status: Acute Assessment and Plan: uncertain etiology. ? CAP (3) Constipation: Code(s): K59.00 - Constipation, unspecified Status: Acute Assessment and Plan: CTA of her abdomen pelvis was ordered in the ER which found her to have large volume of colonic stool and mild colonic distension without focal transition point, likely ileus. Constipation improving on MiraLax b.i.d., Colace b.i.d and give 1 dose of mineral oil Having good bowel movements. (4) Sinus tachycardia: Code(s): R00.0 - Tachycardia, unspecified Status: Resolved Assessment and Plan: Possibly due to volume depletion. or Sepsis started iv ABX today likely secondary to CAP can dc telemetry mild left sided chest pain today ordered EKG and Troponin yesterday (5) Acute renal injury: Code(s): N17.9 - Acute kidney failure, unspecified Status: Resolved Assessment and Plan: (6) Incidental lung nodule, > 3mm and < 8mm: Code(s): R91.1 - Solitary pulmonary nodule Status: Acute Assessment and Plan: follow-up CT in 6-12 months Pulmology consulted (7) Hyponatremia: Code(s): E87.1 - Hypo-osmolality and hyponatremia Status: Acute Assessment and Plan: Acute on chronic. Na 128 (8) Hyperglycemia: Code(s): R73.9 - Hyperglycemia, unspecified Status: Acute Assessment and Plan: Patient denies history of diabetes. Hemoglobin A1c was 5.6%. No need to further evaluate her glucose levels. Subjective Date/time seen: 12/04/19 14:33 Interval history: 74 year old female with a past medical history of intermittent constipation, hypertension and migraines who presented to the ER with abdominal pain and weakness. 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 SOB ongoing, cough ongoing. no fever. headache history of headache. Wcc improving after starting IV abx. Bc negative to date. Pt had episode of chest pain, EKG and trop ordered. Pt chest pain is mild left sided. Pt states she feels nauseated and is not eating much. Her potassium is low today and she is having a potassium rider. Review of Systems Review of Systems: All systems reviewed & are unremarkable except as noted in HPI and below Respiratory: Respiratory: Reports chest congestion Comments: left sided chest pain Exam Const: General: cooperative and healthy appearing; No in distress Nutritional Appearance: overweight Orientation/consciousness: oriented to person HENMT: Head: normal to inspection Resp: Effort & Inspection: tachypneic and other (Few wheezes in lungs ) Cardio: Rate: regular rate Rhythm: regular rhythm GI: Inspection: normal to inspection Auscultation: normal bowel sounds Neuro: General: oriented to person Objective Data Vital Signs Vital Signs: Vital Signs - 24 hr 12/03/19 22:00 12/04/19 06:00 12/04/19 14:00 Temperature 36.9 C 37.1 C 37.2 C Pulse Rate 95 96 104 H Respiratory Rate 20 20 22 H Blood Pressure 155/92 H 166/94 H 162/93 H Pulse Oximetry 91 94 90 Intake/Output Intake/Output: Intake & Output 12/01/19 12/02/19 12/03/19 12/04/19 23:59 23:59 23:59 23:59 Intake To
[2019-12-04 16:18] LABS: Potassium 2.8 mmol/L (3.4-5.0)
--- NOTE | 2019-12-04 16:18 | PM.CNPUL ---
Assessment and Plan Assessment and plan (1) Chronic interstitial lung disease: Code(s): J84.9 - Interstitial pulmonary disease, unspecified Status: Acute Assessment and Plan: She has only mild shortness of breath on a few days in the week prior to admission, no cough or sputum. Initial CT 11/[address] showing 6mm nodule in LLL, then interstitial changes on chest CT. Chronic ILD was seen on CXR 08/04/2018. - after discharge and return to baseline, we will order PFTs, walk study - VALENTINE for interstitial changes; collagen vascular diseases can be associated with ILD on chest CT. She does not have h/o lupus of other auto immune conditions. - she has no exposure to any substance that might be associated with interstitial lung disease - will check urine antigens for Legionella and Strep pneumonia, and CRP for concerns regarding pneumonia. (2) Lung nodule: Code(s): R91.1 - Solitary pulmonary nodule Status: Acute Assessment and Plan: - Left lower lobe 6 mm nodule --> chest CT non-contrast in 6 months (3) Hyponatremia: Code(s): E87.1 - Hypo-osmolality and hyponatremia Status: Acute Assessment and Plan: Mild to moderate, persistent, dating back to 2012. Today it is 128, lower. TSH is normal this admission. She is now on hydrochlorothiazide which can decrease sodium. Given the ankle swelling, crackles, low sodium, I will order and echocardiogram, BNP and serum osmolality. She may like to be on a loop diuretic more than HCTZ with persistently low sodium. History of Present Illness History of Present Illness Consult date: 12/04/19 Requesting physician: Zahira Amor MD Reason for consult: other (abnormal chest CT) Chief complaint: acute renal failure, dehydration, Narrative: Dr Amor consulted me to see this patient for abnormal findings on November 28 abd/pelvis CT, a 6 mm nodule in the LLL and chest CTA with chronic interstitial changes. Jonathan Leger is 74 yo nonsmoker admitted November 28 with crampy abdominal pain and constipation with lightheadedness for 3 days prior to admission. She had nausea but no vomiting. She had shortness of breath on 2 days out of the week prior to admission without cough or sputum. She works at a [employer] 20 hours a week where she was hot this week. She was having dizziness and weakness over the last several days. She had atelectasis on the initial CXR on admission, high white cell count 20.4 with a left shift which is much better now12K, low sodium 129, and acute kidney injury with BUN 41 / creat 1.4. She states that she drinks significant amounts of water, 40 oz of water at work and additional fluids at home, so she was surprised when she was told she was dehydrated. Her lactic acid was increased at 5.6 on November 29, high at 2.3 on November 28 admission. She has had low sodium levels going back to 2013 in the labs. She has had a few bronchodialtor treatments since admission, and these have helped with shortness of breath. She was on O2 in the few few days, with saturation in the high 90% range, may not have needed it. She was started on ceftriaxone IV and oral doxycycline for possible pneumonia. The patient had an episode of pneumonia in May 2017, and tonsillitis every other year for a few years. She was exposed to cigarette smoke as both parents smoked. Father of lung cancer in his mid 50s and her mother probably from lung cancer around the same age a year later. She never had asthma, has never had exposure to asbestos, vapors, dust or other respiratory irritants. 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 She does not have any hobbies such as exposure to birds or chickens, mushroom exposure, exposure to moldy areas or anything
[2019-12-04] MEDS: ALBUTEROL SULFATE NEB 2.5 MG/0.5 ML INH INHALATION (16:36)
[2019-12-04 16:38] VITALS: PULSE 66; RESP 16
[2019-12-04 16:49] VITALS: PULSE 75; RESP 18
[2019-12-04] MEDS: POTASSIUM CHLORIDE 20 MEQ PACKET (FOR LIQUID) 40 MEQ PO (17:25)
[2019-12-04] MEDS: LIDOCAINE 5% PATCH 1 PATCH TRANSDERM (17:25)
[2019-12-04 22:00] VITALS: BP 155/90; PULSE 95; RESP 20; TEMP 36.9; O2SAT 91
[2019-12-05 06:00] VITALS: BP 182/83; PULSE 97; RESP 20; TEMP 36.4; O2SAT 94
[2019-12-05 06:12] VITALS: PULSE 94
[2019-12-05] MEDS: LABETALOL HCL INJ 100 MG/20 ML VIAL 10 MG IV PUSH (06:12)
[2019-12-05 06:35] LABS: Hematocrit 32.9 % (37.0-47.0); Hemoglobin 11.2 g/dL (12.0-15.0); Mean Corpuscular Hemoglobin 28.2 pg (26-34); Mean Corpuscular Volume 82.9 fl (80-100); Mean Platelet Volume 9.2 fl (7.4-10.4); Platelet Count Result 316 k/mm3 (150-375); Red Blood Count 3.97 M/mm3 (4.2-5.4); White Blood Count 13.4 K/mm3 (4.5-10.0)
[2019-12-05 06:54] LABS: NT Pro B Type Natriuretic Pept 1500 PG/ML (5-100)
[2019-12-05 07:01] LABS: Anion Gap 10.8 mmol/L (7-16); Blood Urea Nitrogen 7 mg/dL (7-17); CRP 19.3 mg/dL (<1.0); Calcium 8.7 mg/dL (8.4-10.2); Carbon Dioxide 34 mmol/L (22-30); Chloride 85 mmol/L (98-107); Estimated CRCL calculation 79 ml/min; Estimated Glomerular Filt Rate > 60; Glucose 100 mg/dL (65-105); Potassium 2.8 mmol/L (3.4-5.0); Sodium 127 mmol/L (137-145)
--- NOTE | 2019-12-05 08:00 | ECHO_ITS ---
Patient Info Name: Corrine Leger Age: 74 years : 1945 Gender: Female Ht: 61 in Wt: 165 lbs BSA: 1.82 m2 HR: 81 bpm BP: 182 / 83 mmHg Heart Rhythm: Sinus Rhythm Technical Quality: Good Exam Date: 12/05/2019 7:10 AM Exam Location: [facility] [place] Card Pulmonary Patient Status: Inpatient Admit Date: 11/30/2019 Staff Ordering Physician: Chante Mendoza MD Kelp Gatherer: Bianca Franklin RDCS Attending Provider: Magui Osei PA-C Referring Physician: Kelly OSEI; Exam Type: CA echo doppler color flow Study Info Complete two-dimensional, color flow and Doppler transthoracic echocardiogram is performed. Summary 1. There is moderate aortic valve sclerosis. 2. There is mild to moderate aortic valve regurgitation. 3. There is mild aortic valve calcification. 4. There is mild mitral valve regurgitation. 5. There is mild tricuspid valve regurgitation. 6. Moderate pulmonary hypertension, estimated pulmonary arterial systolic pressure is 52 mmHg. 7. There is mild pulmonic regurgitation. 8. Left ventricular chamber dimension is normal. 9. Left ventricular systolic function is normal, estimated at 60-65%. 10. There is mildly increased left ventricular wall thickness. 11. The left ventricular diastolic function is grade I diastolic dysfunction. 12. Right ventricular chamber dimension is mildly enlarged. 13. Right ventricular systolic function is reduced. Left Ventricle Left ventricular chamber dimension is normal. Left ventricular systolic function is normal, estimated at 60-65%. There is mildly increased left ventricular wall thickness. The left ventricular diastolic function is grade I diastolic dysfunction. Right Ventricle Right ventricular chamber dimension is mildly enlarged. Right ventricular systolic function is reduced. Left Atria Left atrial chamber dimension is moderately enlarged. Right Atria Right atrial chamber dimension is normal. Atrial Septum Intact interatrial septum visualized by Doppler imaging. Aortic Valve The aortic valve is trileaflet. There is moderate aortic valve sclerosis. There is no aortic valve stenosis. There is mild to moderate aortic valve regurgitation. There is mild aortic valve calcification. Pulmonic Valve The pulmonic valve is normal. There is no pulmonic valve stenosis. There is mild pulmonic regurgitation. Mitral Valve The mitral valve has normal leaflets. There is no mitral valve stenosis. There is mild mitral valve regurgitation. Tricuspid Valve The tricuspid valve leaflets are normal. There is no significant tricuspid valve stenosis. There is mild tricuspid valve regurgitation. Moderate pulmonary hypertension, estimated pulmonary arterial systolic pressure is 52 mmHg. No tricuspid valve vegetation visualized. Pericardium/Pleural The pericardium appears normal. There is trivial pericardial effusion. Inferior Vena Cava Dilated inferior vena cava with >50% collapse upon inspiration consistent with elevated right atrial pressure, 10 mmHg. Aorta The aortic root size at the sinus of Valsalva is normal. Left Ventricular Outflow Tract Name Value Normal LVOT 2D LVOT Diameter 2.0 cm LVOT Doppl
[2019-12-05] MEDS: POTASSIUM CHLORIDE 20 MEQ TABLET.ER 40 MEQ PO ×3 (08:21→17:11)
[2019-12-05] MEDS: DICYCLOMINE HCL 10 MG CAPSULE 20 MG PO ×4 (08:23→20:56)
[2019-12-05] MEDS: lisinopriL 10 MG TABLET PO (08:24)
[2019-12-05] MEDS: hydroCHLOROthiazide 12.5 MG CAPSULE PO (08:24)
[2019-12-05] MEDS: FAMOTIDINE 10 MG TABLET PO ×2 (08:24→20:56)
[2019-12-05] MEDS: ENOXAPARIN 40 MG/0.4 ML SYRINGE SUB-Q (08:25)
[2019-12-05 08:35] VITALS: BP 151/89
[2019-12-05] MEDS: LIDOCAINE 5% PATCH 1 PATCH TRANSDERM (12:12)
--- NOTE | 2019-12-05 12:16 | PM.IMPN ---
Progress Note: A&P Assessment and Plan (1) Leukocytosis: Code(s): D72.829 - Elevated white blood cell count, unspecified Status: Acute Assessment and Plan: WCC improving BC negative to date Pt started on IV rocephin CT chest ? pneumonia. Pt seen by pulmology COVID test was not done as pt did not need it, Pneumonia treated as a CAP , bacterial infection. (2) Lactic acidosis: Code(s): E87.2 - Acidosis Status: Acute Assessment and Plan: uncertain etiology. ? CAP CT chest shows - 2. Diffuse lung disease, likely chronic interstitial lung disease in a pattern of nonspecific interstitial pneumonia (NSIP). Superimposed mild pulmonary edema cannot be excluded (3) Constipation: Code(s): K59.00 - Constipation, unspecified Status: Acute Assessment and Plan: CTA of her abdomen pelvis was ordered in the ER which found her to have large volume of colonic stool and mild colonic distension without focal transition point, likely ileus. Constipation improving on MiraLax b.i.d., Colace b.i.d and give 1 dose of mineral oil Having good bowel movements now. (4) Sinus tachycardia: Code(s): R00.0 - Tachycardia, unspecified Status: Resolved Assessment and Plan: Possibly due to volume depletion. likely secondary to CAP (5) Acute renal injury: Code(s): N17.9 - Acute kidney failure, unspecified Status: Resolved Assessment and Plan: (6) Incidental lung nodule, > 3mm and < 8mm: Code(s): R91.1 - Solitary pulmonary nodule Status: Acute Assessment and Plan: follow-up CT in 6-12 months Pulmology consulted (7) Hyponatremia: Code(s): E87.1 - Hypo-osmolality and hyponatremia Status: Acute Assessment and Plan: Acute on chronic. Na 128, change to loop diuretics (8) Hyperglycemia: Code(s): R73.9 - Hyperglycemia, unspecified Status: Acute Assessment and Plan: Patient denies history of diabetes. Hemoglobin A1c was 5.6%. No need to further evaluate her glucose levels. Subjective Date/time seen: 12/05/19 12:16 Interval history: 74 year old female with a past medical history of intermittent constipation, hypertension and migraines who presented to the ER with abdominal pain and weakness. 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 SOB ongoing, cough ongoing. no fever. headache history of headache. Wcc improving after starting IV abx. Bc negative to date. Pt had episode of chest pain, EKG and trop ordered. Pt chest pain is mild left sided. Pt states she feels nauseated and is not eating much. Her potassium is low again today. encouraged pt to eat more. Review of Systems Review of Systems: Narrative: loss of appetite, fatigue Exam Const: General: cooperative and healthy appearing; No in distress Nutritional Appearance: overweight Orientation/consciousness: oriented to person Resp: Effort & Inspection: tachypneic and other (Few wheezes in lungs ) Cardio: Rate: regular rate Rhythm: regular rhythm GI: Inspection: normal to inspection Auscultation: normal bowel sounds Neuro: General: oriented to person Objective Data Vital Signs Vital Signs: Vital Signs - 24 hr 12/04/19 14:00 12/04/19 16:38 12/04/19 16:49 Temperature 37.2 C Pulse Rate 104 H 66 75 Respiratory Rate 22 H 16 18 Blood Pressure 162/93 H Pulse Oximetry 90 12/04/19 22:00 12/05/19 06:00 12/05/19 06:12 Temperature 36.9 C 36.4 C L Pulse Rate 95 97 94 Respiratory Rate 20 20 Blood Pressure 155/90 H
[2019-12-05 14:00] VITALS: BP 153/82; PULSE 99; RESP 18; TEMP 37; O2SAT 93
[2019-12-05] MEDS: AMOXICILLIN/CLAVULANATE K 500-125 MG TAB 1 TABLET PO ×2 (14:24→20:56)
--- NOTE | 2019-12-05 16:00 | PCOTNOTE ---
Patient declined treatment this date due to fatigue.
[2019-12-05] MEDS: LOPERAMIDE HCL 2 MG CAPSULE PO ×2 (17:11→20:56)
--- NOTE | 2019-12-05 19:48 | PM.PNPUL ---
Progress Note: A&P Assessment and Plan (1) Chronic interstitial lung disease: Code(s): J84.9 - Interstitial pulmonary disease, unspecified Status: Acute Assessment and Plan: She has only mild shortness of breath on a few days in the week prior to admission, no cough or sputum. Initial CT 11/[address] showing 6mm nodule in LLL, then interstitial changes on chest CT. Chronic ILD was seen on CXR 08/04/2018. - after discharge and return to baseline, we will order PFTs, walk study, Home sleep test. - VALENTINE for interstitial changes; collagen vascular diseases can be associated with ILD on chest CT. She does not have h/o lupus of other auto immune conditions. - she has no exposure to any substance that might be associated with interstitial lung disease - urine antigens for Legionella and Strep pneumonia are pending; CRP is high, 19.3; ordered this as there is a concern for pneumonia. (2) Lung nodule: Code(s): R91.1 - Solitary pulmonary nodule Status: Acute Assessment and Plan: - Left lower lobe 6 mm nodule --> chest CT non-contrast in 6 months (3) Hyponatremia: Code(s): E87.1 - Hypo-osmolality and hyponatremia Status: Acute Assessment and Plan: Mild to moderate, persistent, dating back to 2012. Today it is 127, lower. TSH is normal; HCTZ stopped. Echo shows grade I diastolic dysfunction, enlarged RV, mild decrease in RV function, BNP 1200, serum osm is pending. Will check mag level with persistently low K+. (4) Pulmonary hypertension: Code(s): I27.20 - Pulmonary hypertension, unspecified Status: Acute Assessment and Plan: New finding on echo, RVSP 52 mm Hg, moderate AI, mild MR, aortic sclerosis, enlarged RV, normal EF. We can work up the pulmonary hypertension as an out patient. She is agreeable to a home sleep test. Subjective Date/time seen: 12/05/19 19:48 This 74 yo female is seen in follow up for November 28 abd/pelvis CT, a 6 mm nodule in the LLL and chest CTA with chronic interstitial changes. Probably will go home tomorrow. November 28 - admitted; abdominal pain, constipation, lightheadedness,atelectasis on the initial CXR on admission, leukocytosis 20.4 K, hyponatremia, ANNA BUN 41 / creat 1.4, LA 2.3. abd/pelvis CT with 6 mm LLL nodule November 29 - Lactic acid 5.6; chest CT with chronic ILD changes December 03 - little shortness of breath, no sputum, continued antibiotics for suspected pneumonia ceftrizone and po docycycline. Dec 04 - echo: pulmonary hypertension plus more findings; see below Review of Systems Review of Systems: Narrative: She is having [id number] BM with meds to move her bowels. A little worse today. Little shortness of breath. Exam Const: General: comfortable and no acute distress Other: on room air, saturation is 90-94% HENMT: Mouth: Yes moist mucous membranes (Mallampati II, crowded. ) Eyes: General: appearance normal, both eyes and all related structures Chest: Chest palpation & inspection: normal inspection of the chest ( normal respiratory effort) and normal palpation of entire chest wall (left anterior chest is not tender to palpation) Resp: Auscultation: crackles Other: scattered crackles half way up both lower lobes; after albuterol, she had expiratory wheezes and a more prolonged expiration Cardio: Rate: regular rate Rhythm: regular rhythm Skin: General skin exam: normal color Neuro: Speech: normal speech Psych: Mental Status: mental status grossly normal Objective Data Vital Signs Vital Signs: Vital Signs - 24 hr 12/04/19 22:00 12/05/19 06:00 12/05/19 06:12 Temperature 36.9 C 36.4 C L Pulse Rate 95 97 94 Respiratory Rate 20 20
[2019-12-05 22:00] VITALS: BP 178/84; PULSE 93; RESP 18; TEMP 36.4; O2SAT 94
[2019-12-06 06:00] VITALS: BP 152/78; PULSE 96; RESP 18; TEMP 37.1; O2SAT 92
[2019-12-06] MEDS: AMOXICILLIN/CLAVULANATE K 500-125 MG TAB 1 TABLET PO ×3 (06:15→21:02)
[2019-12-06 06:38] LABS: Magnesium 1.4 mg/dL (1.6-2.3)
[2019-12-06 07:41] LABS: Hematocrit 33.5 % (37.0-47.0); Hemoglobin 11.6 g/dL (12.0-15.0); Mean Corpuscular HGB Conc 34.6 g/dl (32-36); Mean Corpuscular Hemoglobin 28.8 pg (26-34); Mean Corpuscular Volume 83.1 fl (80-100); Mean Platelet Volume 9.4 fl (7.4-10.4); Platelet Count Result 355 k/mm3 (150-375); Red Blood Count 4.03 M/mm3 (4.2-5.4); Red Cell Distribution Width 13.3 % (11.5-14.5); White Blood Count 15.6 K/mm3 (4.5-10.0)
[2019-12-06 08:04] LABS: Anion Gap 12.1 mmol/L (7-16); Blood Urea Nitrogen 9 mg/dL (7-17); Calcium 8.8 mg/dL (8.4-10.2); Carbon Dioxide 30 mmol/L (22-30); Chloride 87 mmol/L (98-107); Estimated CRCL calculation 96 ml/min; Estimated Glomerular Filt Rate > 60; Glucose 97 mg/dL (65-105); Potassium 4.1 mmol/L (3.4-5.0); Sodium 125 mmol/L (137-145)
[2019-12-06] MEDS: LIDOCAINE 5% PATCH 1 PATCH TRANSDERM (08:19)
[2019-12-06] MEDS: LOPERAMIDE HCL 2 MG CAPSULE PO (08:19)
[2019-12-06] MEDS: ENOXAPARIN 40 MG/0.4 ML SYRINGE SUB-Q (08:20)
[2019-12-06] MEDS: DICYCLOMINE HCL 10 MG CAPSULE 20 MG PO ×4 (08:20→21:02)
[2019-12-06] MEDS: POTASSIUM CHLORIDE 20 MEQ TABLET.ER 40 MEQ PO ×3 (08:20→17:48)
[2019-12-06] MEDS: FAMOTIDINE 10 MG TABLET PO ×2 (08:20→21:02)
[2019-12-06] MEDS: lisinopriL 10 MG TABLET PO (08:21)
[2019-12-06] MEDS: FUROSEMIDE 40 MG TABLET PO (08:21)
--- NOTE | 2019-12-06 11:32 | PM.IMPN ---
Progress Note: A&P Assessment and Plan (1) Leukocytosis: Code(s): D72.829 - Elevated white blood cell count, unspecified Status: Acute Assessment and Plan: WCC worsening, CXR still shows patchy infiltrate. BC negative to date Restart IV rocephin and zithromax orally iThink this is better coverage for her. CT chest ? pneumonia. Pt seen by pulmology COVID test was not done as pt did not need it, Pneumonia treated as a CAP , bacterial infection. (2) Lactic acidosis: Code(s): E87.2 - Acidosis Status: Acute Assessment and Plan: uncertain etiology. ? CAP CT chest shows - 2. Diffuse lung disease, likely chronic interstitial lung disease in a pattern of nonspecific interstitial pneumonia (NSIP). Superimposed mild pulmonary edema cannot be excluded (3) Constipation: Code(s): K59.00 - Constipation, unspecified Status: Acute Assessment and Plan: CTA of her abdomen pelvis was ordered in the ER which found her to have large volume of colonic stool and mild colonic distension without focal transition point, likely ileus. Constipation improving on MiraLax b.i.d., Colace b.i.d and give 1 dose of mineral oil Having good bowel movements now. (4) Sinus tachycardia: Code(s): R00.0 - Tachycardia, unspecified Status: Resolved Assessment and Plan: Possibly due to volume depletion. likely secondary to CAP (5) Acute renal injury: Code(s): N17.9 - Acute kidney failure, unspecified Status: Resolved Assessment and Plan: (6) Incidental lung nodule, > 3mm and < 8mm: Code(s): R91.1 - Solitary pulmonary nodule Status: Acute Assessment and Plan: follow-up CT in 6-12 months Pulmology consulted (7) Hyponatremia: Code(s): E87.1 - Hypo-osmolality and hyponatremia Status: Acute Assessment and Plan: Acute on chronic. Na 128, change to loop diuretics (8) Hyperglycemia: Code(s): R73.9 - Hyperglycemia, unspecified Status: Acute Assessment and Plan: Patient denies history of diabetes. Hemoglobin A1c was 5.6%. No need to further evaluate her glucose levels. Subjective Date/time seen: 12/06/19 11:32 Interval history: 74 year old female with a past medical history of intermittent constipation, hypertension and migraines who presented to the ER with abdominal pain and weakness. the patient reports that she works for a [employer] and it has been very hot at her job. SOB ongoing, cough ongoing. no fever. headache history of headache. Wcc improving after starting IV abx. Bc negative to date. Pt had episode of chest pain, EKG and trop ordered. Pt chest pain is mild left sided. Pt states she feels nauseated and is not eating much. potassium is better today, but pt still complains of fatigue and nausea. WCC worsening I think i will restart her IV abx as she just does not look well. Review of Systems Review of Systems: All systems reviewed & are unremarkable except as noted in HPI and below Constitutional: Constitutional: Reports difficulty sleeping, Reports fatigue and Reports poor appetite Respiratory: Respiratory: Reports chest congestion, Reports cough and Reports dyspnea Exam Const: General: cooperative and healthy appearing; No in distress Nutritional Appearance: overweight Orientation/consciousness: oriented to person Resp: Auscultation: clear to auscultation bilaterally and other (decreased a bases ) Cardio: Rate: regular rate Rhythm: regular rhythm GI: Inspection: normal to inspection Auscultation: normal bowel sounds Neur
--- NOTE | 2019-12-06 13:52 | PCOTNOTE ---
Patient declined treatment this date due to not feeling well .
--- NOTE | 2019-12-06 13:54 | PCPTNOTE ---
Patient declined treatment this session due to c/o abdominal pain and fatigue. PT will continue to follow per plan of care.
[2019-12-06] MEDS: ACETAMINOPHEN 325 MG TABLET 650 MG PO (13:57)
[2019-12-06 14:00] VITALS: BP 138/60; PULSE 102; RESP 18; TEMP 37.1; O2SAT 95
--- NOTE | 2019-12-06 21:39 | PM.PNPUL ---
Progress Note: A&P Assessment and Plan (1) Leukocytosis: Qualifiers: Leukocytosis type: unspecified Qualified Code(s): D72.829 - Elevated white blood cell count, unspecified Code(s): D72.829 - Elevated white blood cell count, unspecified Status: Acute Assessment and Plan: Agree with Dr Amor, with increasing WBC, and may benefit from return to IV antibiotic. She has no significant pulmonary symptoms, no sputum, cough; she has chronic ILD. Repeat CXR may not help given the chronic changes. Will check differential on next CBC. (2) Chronic interstitial lung disease: Code(s): J84.9 - Interstitial pulmonary disease, unspecified Status: Acute Assessment and Plan: She has only mild shortness of breath on a few days in the week prior to admission, no cough or sputum. Initial CT 11/[address] showing 6mm nodule in LLL, then interstitial changes on chest CT. Chronic ILD was seen on CXR 08/04/2018. - after discharge and return to baseline, we will order PFTs, walk study, Home sleep test. - VALENTINE for interstitial changes, this is still pending. Collagen vascular diseases can be associated with ILD on chest CT. She does not have h/o lupus of other auto immune conditions. - she has no exposure to any substance that might be associated with interstitial lung disease - urine antigens for Legionella and Strep pneumonia are pending; CRP is high, 19.3; ordered this as there is a concern for pneumonia. (3) Lung nodule: Code(s): R91.1 - Solitary pulmonary nodule Status: Acute Assessment and Plan: - Left lower lobe 6 mm nodule --> chest CT non-contrast in 6 months (4) Hyponatremia: Code(s): E87.1 - Hypo-osmolality and hyponatremia Status: Acute Assessment and Plan: Mild to moderate, persistent, dating back to 2012. Today it is 125, lower. TSH is normal; Hydrochlorothiazide. Echo shows grade I diastolic dysfunction, enlarged RV, mild decrease in RV function, BNP 1200, serum osm is pending. Magnesium level is 1.4; replacement with magnesium oxide added. (5) Pulmonary hypertension: Code(s): I27.20 - Pulmonary hypertension, unspecified Status: Acute Assessment and Plan: New finding on echo, RVSP 52 mm Hg, moderate AI, mild MR, aortic sclerosis, enlarged RV, normal EF. We can work up the pulmonary hypertension as an out patient. She is agreeable to a home sleep test. Subjective Date/time seen: 12/06/19 21:39 This 74 yo female is seen in follow up for pulmonaty hypertension, chronic ILD and 6 mm nodule in the LLL. She was not able to e discharged to day due to rising WBC 15.6 K. She slept some today, and feels better after getting rest. SHe has heart burn, especially after getting IV antibiotic, and says that she feels like belching when this happens. Her K+ is now in the normal range. She is not coughing, does not have sputum. She has not been out of bed much today. Review of Systems Constitutional: Comments: no fever Gastrointestinal: Gastrointestinal: Reports heartburn (milly after IV ceftriaxone; feeling like she needs to belch. ) Exam Const: General: comfortable and no acute distress Other: on room air, saturation is 91-95% HENMT: Mouth: Yes moist mucous membranes (Mallampati II, crowded. ) Eyes: General: appearance normal, both eyes and all related structures Chest: Chest palpation & inspection: normal inspection of the chest ( normal respiratory effort) and normal palpation of entire chest wall (left anterior chest is not tender to palpation) Resp: Auscultation: crackles Cardio: Rate: regular rate Rhythm: regular rhythm GI: Auscultation: normal bowel sounds Skin: Gen
[2019-12-06 22:00] VITALS: BP 157/80; PULSE 94; RESP 18; TEMP 36.8; O2SAT 97
[2019-12-07] MEDS: AMOXICILLIN/CLAVULANATE K 500-125 MG TAB 1 TABLET PO ×2 (05:15→15:10)
[2019-12-07] MEDS: LOPERAMIDE HCL 2 MG CAPSULE PO (05:15)
[2019-12-07 06:04] LABS: Basophils Absolute Auto 0.1 K/mm3 (0.0-0.1); Basophils Percent Auto 0.5 % (0.2-1.2); Eosinophils Percent Auto 0.2 % (0-4.4); Hematocrit 36.6 % (37.0-47.0); Hemoglobin 12.5 g/dL (12.0-15.0); Immature Granulocyte Absolute 0.72 K/mm3 (0.00-0.031); Immature Granulocyte Percent A 3.9 % (0-0.5); Lymphocytes Absolute Auto 1.17 K/mm3 (0.9-3.2); Lymphocytes Percent Auto 6.3 % (18.3-44.2); Mean Corpuscular HGB Conc 34.2 g/dl (32-36); Mean Corpuscular Hemoglobin 28.5 pg (26-34); Mean Corpuscular Volume 83.4 fl (80-100); Monocytes Absolute Auto 1.6 K/mm3 (0.1-0.6); Monocytes Percent Auto 8.4 % (2.6-8.5); Neutrophils Absolute Auto 15.1 K/mm3 (1.3-6.7); Neutrophils Percent Auto 80.7 % (45.5-73.1); Platelet Count Result 424 k/mm3 (150-375); Red Blood Count 4.39 M/mm3 (4.2-5.4); Red Cell Distribution Width 13.3 % (11.5-14.5); White Blood Count 18.6 K/mm3 (4.5-10.0)
[2019-12-07 06:10] LABS: Anion Gap 12.9 mmol/L (7-16); Blood Urea Nitrogen 10 mg/dL (7-17); Calcium 8.8 mg/dL (8.4-10.2); Carbon Dioxide 28 mmol/L (22-30); Chloride 89 mmol/L (98-107); Estimated CRCL calculation 67 ml/min; Estimated Glomerular Filt Rate > 60; Glucose 111 mg/dL (65-105); Potassium 4.9 mmol/L (3.4-5.0); Sodium 125 mmol/L (137-145)
[2019-12-07 06:36] VITALS: BP 160/90; PULSE 113; RESP 20; TEMP 36.7; O2SAT 96
[2019-12-07] MEDS: FUROSEMIDE 40 MG TABLET PO (08:36)
[2019-12-07] MEDS: MAGNESIUM OXIDE 400 MG TABLET PO (08:36)
[2019-12-07] MEDS: lisinopriL 10 MG TABLET PO (08:36)
[2019-12-07] MEDS: AZITHROMYCIN 250 MG TABLET PO (08:37)
[2019-12-07] MEDS: ENOXAPARIN 40 MG/0.4 ML SYRINGE SUB-Q (08:37)
[2019-12-07] MEDS: DICYCLOMINE HCL 10 MG CAPSULE 20 MG PO ×2 (08:37→15:10)
[2019-12-07] MEDS: LIDOCAINE 5% PATCH 1 PATCH TRANSDERM (08:37)
[2019-12-07] MEDS: FAMOTIDINE 10 MG TABLET PO ×2 (08:37→21:46)
[2019-12-07] MEDS: POTASSIUM CHLORIDE 20 MEQ TABLET.ER 40 MEQ PO ×2 (08:37→11:56)
[2019-12-07 10:08] VITALS: O2SAT 92
--- NOTE | 2019-12-07 11:11 | PCNWS ---
Weekly nutritional screen. Patient is currently on a regular diet. Intake has been fair/poor due to nausea and decrease taste. She had 1/2 slice of toast for breakfast. I took lunch and dinner orders today. We discussed diet supplements, she would like to try Ensure compact for lunch which will provide an additional 220 kcals and 8 gms protein. No weight loss reported. No further nutritional needs at this time.
[2019-12-07 14:00] VITALS: BP 140/92; PULSE 115; RESP 20; TEMP 37.2; O2SAT 96
--- NOTE | 2019-12-07 15:53 | PM.PNPUL ---
Progress Note: A&P Assessment and Plan (1) Pulmonary hypertension: Code(s): I27.20 - Pulmonary hypertension, unspecified Status: Acute Assessment and Plan: New finding on echo, RVSP 52 mm Hg, moderate AI, mild MR, aortic sclerosis, enlarged RV, normal EF. We can work up the pulmonary hypertension as an out patient. She is agreeable to a home sleep test. (2) Leukocytosis: Qualifiers: Leukocytosis type: unspecified Qualified Code(s): D72.829 - Elevated white blood cell count, unspecified Code(s): D72.829 - Elevated white blood cell count, unspecified Status: Acute Assessment and Plan: She has no significant pulmonary symptoms, no sputum, cough; she has chronic ILD. Repeat CXR yesterday showed no specific infitlrate. She may have atelectasis, which can cause fevers, but should not cause leukocytosis. Her CRP was elevated at 19.3 on 12/05/2019. WBC is increased 18.6 with 80% segs. Add incentive spirometer to encourage deeper breathing. Diuresis? I'm throwing ideas out there. (3) Chronic interstitial lung disease: Code(s): J84.9 - Interstitial pulmonary disease, unspecified Status: Acute Assessment and Plan: She has only mild shortness of breath on a few days in the week prior to admission, no cough or sputum. Initial CT 11/[address] showing 6mm nodule in LLL, then interstitial changes on chest CT. Chronic ILD was seen on CXR 08/04/2018. - after discharge and return to baseline, we will order PFTs, walk study, Home sleep test. - VALENTINE for interstitial changes, this is still pending. Collagen vascular diseases can be associated with ILD on chest CT. She does not have h/o lupus of other auto immune conditions. - she has no exposure to any substance that might be associated with interstitial lung disease - urine antigens for Legionella and Strep pneumonia are pending; CRP is high, 19.3; ordered this as there is a concern for pneumonia. (4) Lung nodule: Code(s): R91.1 - Solitary pulmonary nodule Status: Acute Assessment and Plan: - Left lower lobe 6 mm nodule --> chest CT non-contrast in 6 months (5) Hyponatremia: Code(s): E87.1 - Hypo-osmolality and hyponatremia Status: Acute Assessment and Plan: Mild to moderate, persistent, dating back to 2012. Again Na+ is 125. TSH is normal; off HCTZ. Echo shows grade I diastolic dysfunction, enlarged RV, mild decrease in RV function, BNP 1200, serum osm is pending. Magnesium level is 1.4; replacement with magnesium oxide added. Subjective Date/time seen: 12/07/19 15:53 WBC is higher today, 18.6 K with 80% segs. No bands were listed. BP is higher, 160/90. Sat is 92-97& on room air. She is on oral amoxicillin and azithromycin. She says that she had an IV dose of antibiotic earlier today, and again had heartburn with the infusion. She had small lung volumes on her CXR yesterday with pulmonary vascular redistribution. discussed with Dr Garcia. Maybe she has been treated with antibiotics long enough. Review of Systems Review of Systems: All systems reviewed & are unremarkable except as noted in HPI and below Respiratory: Comments: no cough other than clearing her throat, no sputum, no shortness of breath. Gastrointestinal: Comments: loose stolls due to bowel regimen; it is not sickly or diarrhea, just normal loose stool. No abdominal pain. Exam Const: General: comfortable and no acute distress Other: on room air, saturation is 91-95% HENMT: Mouth: Yes moist mucous membranes (Mallampati II, crowded. ) Eyes: General: appearance normal, both eyes and all related structures Chest: Chest palpation & inspection: normal in
--- NOTE | 2019-12-07 16:08 | PM.IMPN ---
Progress Note: A&P Assessment and Plan (1) Leukocytosis: Qualifiers: Leukocytosis type: unspecified Qualified Code(s): D72.829 - Elevated white blood cell count, unspecified Code(s): D72.829 - Elevated white blood cell count, unspecified Status: Acute Assessment and Plan: WBC elevated on admission at 20K that improved down to 11.7K before worsening over the past 3 days to 18K. UA negative. CXR on admission (11/28) showing mild atelectasis in the lung bases. Repeat CXR 12/04 showing development of patchy basilar opacities probably acute infectious process on chronic interstitial lung disease. Currently on Azithro, Rocephin and Augmentin. Was also on Doxy at one point. No fevers. Weaned to RA. BCx negative. Will stop abx and follow. Having frequent small stools but could be related to the abx or leaking around hard stool. (2) Lactic acidosis: Code(s): E87.2 - Acidosis Status: Acute Assessment and Plan: Lactic acid elevated on admission and climbed to 5.6 before normalizing. Etiology unclear. Probably related to above. (3) Constipation: Code(s): K59.00 - Constipation, unspecified Status: Acute Assessment and Plan: CTA of her abdomen pelvis was ordered in the ER which found her to have large volume of colonic stool and mild colonic distension without focal transition point, likely ileus. Constipation improving. Off all scheduled medication now. Stop Bentyl. Check obstructive series. (4) Sinus tachycardia: Code(s): R00.0 - Tachycardia, unspecified Status: Resolved Assessment and Plan: Possibly due to volume depletion. Resolved. (5) Acute renal injury: Code(s): N17.9 - Acute kidney failure, unspecified Status: Resolved Assessment and Plan: Cr 1.4 on admisison but better now. Related to above. (6) Incidental lung nodule, > 3mm and < 8mm: Code(s): R91.1 - Solitary pulmonary nodule Status: Acute Assessment and Plan: Possible 6mm nodule noted by CT scan but not mentioned in the CT of the chest. Probably more scarring related. Will defer to Pulmonary . (7) Hyponatremia: Code(s): E87.1 - Hypo-osmolality and hyponatremia Status: Acute Assessment and Plan: Na 129 on admission that improved to 133 before trending downward. TSH okay. Will check urine Na. Fluid restrict for now. Check Cortisol. (8) Hyperglycemia: Code(s): R73.9 - Hyperglycemia, unspecified Status: Acute Assessment and Plan: Patient denies history of diabetes. A1c was 5.6%. Glucose remains well controlled. (9) Chronic interstitial lung disease: Code(s): J84.9 - Interstitial pulmonary disease, unspecified Status: Acute Assessment and Plan: CT chest showing diffuse lung disease, likely chronic interstitial lung disease in a pattern of nonspecific interstitial pneumonia (NSIP). Being followed by pulmonary. Echo showing pulmonary HTN. Subjective Date/time seen: 12/07/19 16:08 Interval history: 74yo female with history of HTN here with abdominal pain and weakness. Assuming care. Chart reviewed. She still feels very weak. SLept poorly last night. Complains of polyuria. Poor appetite. No n/v. Having abd pain that she believes associated with medications being given here. Complains of dry mouth but no dry eyes. Walking in the halls. Having frequent small liquid stools. Exam Narrative: Exam Narrative: AF 160/90 113 20 92% RA Gen - NARD Chest - dry bibasilar inspiratory crackles, nml RR, no conversational
[2019-12-07 22:00] VITALS: BP 151/94; PULSE 113; RESP 18; TEMP 36.9; O2SAT 94
[2019-12-08 06:00] VITALS: BP 144/68; PULSE 102; RESP 18; TEMP 36.4; O2SAT 96
[2019-12-08 06:31] LABS: Basophils Absolute Auto 0.1 K/mm3 (0.0-0.1); Basophils Percent Auto 0.7 % (0.2-1.2); Eosinophils Percent Auto 0.2 % (0-4.4); Hematocrit 35.1 % (37.0-47.0); Hemoglobin 11.9 g/dL (12.0-15.0); Immature Granulocyte Absolute 0.34 K/mm3 (0.00-0.031); Immature Granulocyte Percent A 2.1 % (0-0.5); Lymphocytes Absolute Auto 1.25 K/mm3 (0.9-3.2); Lymphocytes Percent Auto 7.6 % (18.3-44.2); Mean Corpuscular HGB Conc 33.9 g/dl (32-36); Mean Corpuscular Hemoglobin 28.5 pg (26-34); Mean Corpuscular Volume 84.2 fl (80-100); Monocytes Absolute Auto 1.8 K/mm3 (0.1-0.6); Monocytes Percent Auto 11.1 % (2.6-8.5); Neutrophils Absolute Auto 12.9 K/mm3 (1.3-6.7); Neutrophils Percent Auto 78.3 % (45.5-73.1); Platelet Count Result 437 k/mm3 (150-375); Red Blood Count 4.17 M/mm3 (4.2-5.4); Red Cell Distribution Width 13.7 % (11.5-14.5); White Blood Count 16.4 K/mm3 (4.5-10.0)
[2019-12-08 06:46] LABS: Albumin Level 3.1 g/dL (3.5-5.1); Anion Gap 12.7 mmol/L (7-16); Blood Urea Nitrogen 10 mg/dL (7-17); Calcium 8.5 mg/dL (8.4-10.2); Carbon Dioxide 26 mmol/L (22-30); Chloride 90 mmol/L (98-107); Estimated CRCL calculation 79 ml/min; Estimated Glomerular Filt Rate > 60; Glucose 113 mg/dL (65-105); Magnesium 1.3 mg/dL (1.6-2.3); Phosphorus 3.5 mg/dL (2.5-4.5); Potassium 4.7 mmol/L (3.4-5.0); Sodium 124 mmol/L (137-145)
[2019-12-08] MEDS: ENOXAPARIN 40 MG/0.4 ML SYRINGE SUB-Q (08:02)
[2019-12-08] MEDS: lisinopriL 10 MG TABLET PO (08:03)
[2019-12-08] MEDS: FUROSEMIDE 40 MG TABLET PO (08:03)
[2019-12-08] MEDS: MAGNESIUM OXIDE 400 MG TABLET PO (08:03)
[2019-12-08] MEDS: LIDOCAINE 5% PATCH 1 PATCH TRANSDERM (08:03)
[2019-12-08] MEDS: FAMOTIDINE 10 MG TABLET PO ×2 (08:03→20:43)
[2019-12-08] MEDS: calcium polycarbophiL 625 MG TABLET PO ×2 (08:04→17:39)
[2019-12-08 10:36] LABS: Creatinine Urine 107.1 mg/dL
[2019-12-08 10:41] LABS: Sodium Urine Random 86 meq/L
[2019-12-08 13:15] LABS: Pneumococcal Antigen Urine Not Detected (Not Detected)
[2019-12-08 14:00] VITALS: BP 109/62; PULSE 120; RESP 18; TEMP 36.6; O2SAT 96
--- NOTE | 2019-12-08 15:57 | PCOTNOTE ---
The OT treatment was unable to be completed this date. Will continue plan of care tomorrow, 12/09/2019.
[2019-12-08] MEDS: MAGNESIUM SULF 2 GM/WATER 50ML 2 GM/50 ML BAG IVPB (17:38)
--- NOTE | 2019-12-08 18:22 | PM.IMPN ---
Progress Note: A&P Assessment and Plan (1) Leukocytosis: Qualifiers: Leukocytosis type: unspecified Qualified Code(s): D72.829 - Elevated white blood cell count, unspecified Code(s): D72.829 - Elevated white blood cell count, unspecified Status: Acute Assessment and Plan: WBC elevated on admission at 20K that improved down to 11.7K before worsening over the past 3 days to 18K. UA negative. CXR on admission (11/28) showing mild atelectasis in the lung bases. Repeat CXR 12/04 showing development of patchy basilar opacities probably acute infectious process on chronic interstitial lung disease. Was on Azithro, Rocephin and Augmentin. Was also on Doxy at one point. No fevers. Weaned to RA. BCx negative. Abx stopped 12/07/19. WBC better today. Contineu to follow. (2) Lactic acidosis: Code(s): E87.2 - Acidosis Status: Acute Assessment and Plan: Lactic acid elevated on admission and climbed to 5.6 before normalizing. Etiology unclear. Probably related to above. (3) Constipation: Code(s): K59.00 - Constipation, unspecified Status: Acute Assessment and Plan: CTA of her abdomen pelvis was ordered in the ER which found her to have large volume of colonic stool and mild colonic distension without focal transition point, likely ileus. Constipation improving. Off all scheduled bowel medication now. Off Bentyl. Obstructive series showing gaseous distention of colon. Eating better. Will follow. Contienu Fiber. Diarrhea should improve with bulking agents and with her eating better. (4) Sinus tachycardia: Code(s): R00.0 - Tachycardia, unspecified Status: Resolved Assessment and Plan: Possibly due to volume depletion. Only mildly elevated at times (5) Acute renal injury: Code(s): N17.9 - Acute kidney failure, unspecified Status: Resolved Assessment and Plan: Cr 1.4 on admisison but normal now. Related to above. (6) Incidental lung nodule, > 3mm and < 8mm: Code(s): R91.1 - Solitary pulmonary nodule Status: Acute Assessment and Plan: Possible 6mm nodule noted by CT scan but not mentioned in the CT of the chest. Probably more scarring related. Will defer to Pulmonary . (7) Hyponatremia: Code(s): E87.1 - Hypo-osmolality and hyponatremia Status: Acute Assessment and Plan: Na 129 on admission that improved to 133 before trending downward to 124 today. UN elevated at 84 consistent with SIADH (related to lung disease?) but FENa 0.3%. TSH and cortisol okay. Contineu fluid restriction. Follow (8) Hyperglycemia: Code(s): R73.9 - Hyperglycemia, unspecified Status: Acute Assessment and Plan: Patient denies history of diabetes. A1c was 5.6%. Glucose remains well controlled. (9) Chronic interstitial lung disease: Code(s): J84.9 - Interstitial pulmonary disease, unspecified Status: Acute Assessment and Plan: CT chest showing diffuse lung disease, likely chronic interstitial lung disease in a pattern of nonspecific interstitial pneumonia (NSIP). Echo showing pulmonary HTN. Being followed by pulmonary. Subjective Date/time seen: 12/08/19 18:22 Interval history: 74yo female with history of HTN here with abdominal pain and weakness. Still having small liquid stools. Feeling better. Toelrating solid foods now. Exam Narrative: Exam Narrative: AF 144/68 102 18 96% RA Gen - NARD Chest - mild bibasilar inspiratory crackles, nml RR CV - RRR S1/S2 Abd - soft, protuberant, +BS, NT Ext - no peda
[2019-12-08 21:11] VITALS: BP 102/57; PULSE 92; RESP 16; TEMP 36.9; O2SAT 93
[2019-12-09 06:00] VITALS: BP 113/70; PULSE 98; RESP 20; TEMP 36.6; O2SAT 95
[2019-12-09 06:09] LABS: Hematocrit 37.7 % (37.0-47.0); Hemoglobin 12.8 g/dL (12.0-15.0); Mean Corpuscular Hemoglobin 28.6 pg (26-34); Mean Corpuscular Volume 84.3 fl (80-100); Mean Platelet Volume 9.1 fl (7.4-10.4); Platelet Count Result 425 k/mm3 (150-375); Red Blood Count 4.47 M/mm3 (4.2-5.4); Red Cell Distribution Width 13.6 % (11.5-14.5); White Blood Count 10.3 K/mm3 (4.5-10.0)
[2019-12-09 06:31] LABS: Anion Gap 12.1 mmol/L (7-16); Blood Urea Nitrogen 15 mg/dL (7-17); Calcium 8.8 mg/dL (8.4-10.2); Carbon Dioxide 30 mmol/L (22-30); Chloride 88 mmol/L (98-107); Estimated CRCL calculation 51 ml/min; Estimated Glomerular Filt Rate > 60; Glucose 106 mg/dL (65-105); Magnesium 2.1 mg/dL (1.6-2.3); Phosphorus 4.3 mg/dL (2.5-4.5); Potassium 4.1 mmol/L (3.4-5.0); Sodium 126 mmol/L (137-145)
[2019-12-09 06:56] LABS: Band Neutrophils Percent 24 % (0-6); Lymphocytes Absolute Manual 1.33 K/mm3 (1.1-4.5); Lymphocytes Percent Manual 13 % (18-44); Monocytes Absolute Manual 1.85 K/mm3 (0.1-0.90); Monocytes Percent Manual 18 % (3-9); Neutrophils Percent Manual 45 % (46-73); Total Cells Counted 100
[2019-12-09 06:59] LABS: Platelet Estimate Adequate (Adequate)
[2019-12-09] MEDS: SODIUM CHLORIDE 0.9% IV 1,000 ML 100 ML IV CONT (08:02)
[2019-12-09] MEDS: FAMOTIDINE 10 MG TABLET PO ×2 (08:06→20:45)
[2019-12-09] MEDS: calcium polycarbophiL 625 MG TABLET PO ×2 (08:06→18:07)
[2019-12-09] MEDS: ENOXAPARIN 40 MG/0.4 ML SYRINGE SUB-Q (08:06)
[2019-12-09] MEDS: MAGNESIUM OXIDE 400 MG TABLET PO (08:07)
[2019-12-09] MEDS: FUROSEMIDE 40 MG TABLET PO (08:07)
[2019-12-09] MEDS: lisinopriL 10 MG TABLET PO (08:07)
[2019-12-09] MEDS: LIDOCAINE 5% PATCH 1 PATCH TRANSDERM (08:11)
[2019-12-09 12:39] LABS: Sodium 124 mmol/L (137-145)
--- NOTE | 2019-12-09 12:59 | PM.IMPN ---
Progress Note: A&P Assessment and Plan (1) Hyponatremia: Code(s): E87.1 - Hypo-osmolality and hyponatremia Status: Acute Assessment and Plan: Na 129 on admission that improved to 133 before trending downward to 126 today. Jena elevated at 84 with FENa 0.3%. Inappropriate urine Na but may be dry as well from diarrhea. TSH and cortisol okay. Continue fluid restriction. Add IVF x 1 liter. Follow closely. Add NaCl tabs as well. (2) Leukocytosis: Qualifiers: Leukocytosis type: unspecified Qualified Code(s): D72.829 - Elevated white blood cell count, unspecified Code(s): D72.829 - Elevated white blood cell count, unspecified Status: Acute Assessment and Plan: WBC elevated on admission at 20K that improved down to 11.7K before worsening over the past 3 days to 18K. UA negative. CXR on admission (11/28) showing mild atelectasis in the lung bases. Repeat CXR 12/04 showing development of patchy basilar opacities probably acute infectious process on chronic interstitial lung disease. Was on Azithro, Rocephin and Augmentin. Was also on Doxy at one point. No fevers. Weaned to RA. BCx negative. Abx stopped 12/07/19. WBC down to10K. Continue to follow intermittently. (3) Lactic acidosis: Code(s): E87.2 - Acidosis Status: Acute Assessment and Plan: Lactic acid elevated on admission and climbed to 5.6 before normalizing. Etiology unclear. Probably related to above. (4) Constipation: Code(s): K59.00 - Constipation, unspecified Status: Acute Assessment and Plan: CTA of her abdomen pelvis was ordered in the ER which found her to have large volume of colonic stool and mild colonic distension without focal transition point, likely ileus. Constipation improving. Off all scheduled bowel medication now. Off Bentyl. Obstructive series showing gaseous distention of colon. Eating better. Continue Fiber. Diarrhea resolving. Will follow. (5) Sinus tachycardia: Code(s): R00.0 - Tachycardia, unspecified Status: Resolved Assessment and Plan: Possibly due to volume depletion. Only mildly elevated at times. (6) Acute renal injury: Code(s): N17.9 - Acute kidney failure, unspecified Status: Resolved Assessment and Plan: Cr 1.4 on admisison but normal now. Related to above. (7) Incidental lung nodule, > 3mm and < 8mm: Code(s): R91.1 - Solitary pulmonary nodule Status: Acute Assessment and Plan: Possible 6mm nodule noted by CT scan but not mentioned in the CT of the chest. Probably more scarring related. Will defer to Pulmonary . (8) Hyperglycemia: Code(s): R73.9 - Hyperglycemia, unspecified Status: Acute Assessment and Plan: Patient denies history of diabetes. A1c was 5.6%. Glucose remains well controlled. (9) Chronic interstitial lung disease: Code(s): J84.9 - Interstitial pulmonary disease, unspecified Status: Acute Assessment and Plan: CT chest showing diffuse lung disease, likely chronic interstitial lung disease in a pattern of nonspecific interstitial pneumonia (NSIP). Echo showing pulmonary HTN. Being followed by pulmonary. Subjective Date/time seen: 12/09/19 12:59 Interval history: 74yo female with history of HTN here with abdominal pain and weakness. No problems overnight. Slept well. Eating solids. Diarrhea much better. Walking to the BR. Exam Narrative: Exam Narrative: AF 113/70 98 20 95% Gen - NARD Chest - bibasilar inspiratory crackles, nml RR CV - RRR S1/S2 Ab
[2019-12-09 14:00] VITALS: BP 97/61; PULSE 101; RESP 16; TEMP 36.2; O2SAT 96
[2019-12-09] MEDS: SODIUM CHLORIDE 1 GM TABLET PO ×2 (14:47→18:07)
[2019-12-09] MEDS: MAG HYDROX/AL HYDROX/SIMETH 30 ML UDC PO (18:07)
[2019-12-09 18:10] LABS: Sodium 124 mmol/L (137-145)
[2019-12-09 20:00] VITALS: BP 102/67; PULSE 101; RESP 20; TEMP 36.9; O2SAT 94
[2019-12-09 21:29] LABS: Legionella pneumophila Ag Ur Not Detected (Not Detected)
--- NOTE | 2019-12-09 22:56 | PM.PNPUL ---
Progress Note: A&P Assessment and Plan (1) Pulmonary hypertension: Code(s): I27.20 - Pulmonary hypertension, unspecified Status: Acute Assessment and Plan: New finding on echo, RVSP 52 mm Hg, moderate AI, mild MR, aortic sclerosis, enlarged RV, normal EF. We can work up the pulmonary hypertension as an out patient. She is agreeable to a home sleep test. (2) Leukocytosis: Qualifiers: Leukocytosis type: unspecified Qualified Code(s): D72.829 - Elevated white blood cell count, unspecified Code(s): D72.829 - Elevated white blood cell count, unspecified Status: Acute Assessment and Plan: She has no significant pulmonary symptoms, no sputum, cough; she has chronic ILD. Repeat CXR yesterday showed no specific infitlrate. She may have atelectasis, which can cause fevers, but should not cause leukocytosis. Her CRP was elevated at 19.3 on 12/05/2019. WBC is increased 18.6 with 80% segs. Add incentive spirometer to encourage deeper breathing. Diuresis? I'm throwing ideas out there. (3) Chronic interstitial lung disease: Code(s): J84.9 - Interstitial pulmonary disease, unspecified Status: Acute Assessment and Plan: She has only mild shortness of breath on a few days in the week prior to admission, no cough or sputum. Initial CT 11/[address] showing 6mm nodule in LLL, then interstitial changes on chest CT. Chronic ILD was seen on CXR 08/04/2018. - after discharge and return to baseline, we will order PFTs, walk study, Home sleep test. - VALENTINE for interstitial changes, this is still pending. Collagen vascular diseases can be associated with ILD on chest CT. She does not have h/o lupus of other auto immune conditions. - she has no exposure to any substance that might be associated with interstitial lung disease - urine antigens for Legionella and Strep pneumonia are pending; CRP is high, 19.3; ordered this as there is a concern for pneumonia. (4) Lung nodule: Code(s): R91.1 - Solitary pulmonary nodule Status: Acute Assessment and Plan: - Left lower lobe 6 mm nodule --> chest CT non-contrast in 6 months (5) Hyponatremia: Code(s): E87.1 - Hypo-osmolality and hyponatremia Status: Acute Assessment and Plan: Mild to moderate, persistent, dating back to 2012. Again Na+ is 125. TSH is normal; off HCTZ. Echo shows grade I diastolic dysfunction, enlarged RV, mild decrease in RV function, BNP 1200, serum osm is pending. Magnesium level is 1.4; replacement with magnesium oxide added. Subjective Date/time seen: 12/09/19 22:56 Review of Systems Review of Systems: All systems reviewed & are unremarkable except as noted in HPI and below Gastrointestinal: Gastrointestinal: Reports heartburn (milly after IV ceftriaxone; feeling like she needs to belch. ) Exam Const: General: comfortable and no acute distress Other: on room air, saturation is 91-95% HENMT: Mouth: Yes moist mucous membranes (Mallampati II, crowded. ) Eyes: General: appearance normal, both eyes and all related structures Chest: Chest palpation & inspection: normal inspection of the chest ( normal respiratory effort) and normal palpation of entire chest wall (left anterior chest is not tender to palpation) Resp: Auscultation: crackles localized (bases of lungs, soft crackle ) Other: scattered crackles half way up both lower lobes; after albuterol, she had expiratory wheezes and a more prolonged expiration Cardio: Rate: regular rate Rhythm: regular rhythm GI: Auscultation: normal bowel sounds Skin: General skin exam: normal color Neuro: Speech: normal speech Psych: Mental Status: mental status grossly anson
[2019-12-10 00:09] VITALS: BP 119/60; PULSE 100; RESP 16; TEMP 36.5; O2SAT 96
[2019-12-10 01:29] LABS: Sodium 124 mmol/L (137-145)
[2019-12-10 06:00] VITALS: BP 118/57; PULSE 93; RESP 20; TEMP 36.4; O2SAT 97
[2019-12-10 06:55] LABS: Blood Urea Nitrogen 13 mg/dL (7-17); Calcium 8.3 mg/dL (8.4-10.2); Carbon Dioxide 29 mmol/L (22-30); Chloride 91 mmol/L (98-107); Estimated CRCL calculation 67 ml/min; Estimated Glomerular Filt Rate > 60; Glucose 97 mg/dL (65-105); Sodium 127 mmol/L (137-145)
[2019-12-10] MEDS: calcium polycarbophiL 625 MG TABLET PO (09:20)
[2019-12-10] MEDS: LIDOCAINE 5% PATCH 1 PATCH TRANSDERM (09:20)
[2019-12-10] MEDS: FAMOTIDINE 10 MG TABLET PO (09:20)
[2019-12-10] MEDS: ENOXAPARIN 40 MG/0.4 ML SYRINGE SUB-Q (09:21)
[2019-12-10] MEDS: MAGNESIUM OXIDE 400 MG TABLET PO (09:21)
[2019-12-10] MEDS: SODIUM CHLORIDE 1 GM TABLET PO (09:21)
[2019-12-10] MEDS: FUROSEMIDE 40 MG TABLET PO (09:21)
[2019-12-10] MEDS: lisinopriL 10 MG TABLET PO (09:21)
--- NOTE | 2019-12-10 12:55 | PM.PNPUL ---
Progress Note: A&P Assessment and Plan (1) ILD (interstitial lung disease): Code(s): J84.9 - Interstitial pulmonary disease, unspecified Status: Acute Assessment and Plan: - I order outpatient HRCT of the chest and PFT in 4 weeks - f/u in our office in 6 weeks. - will need outpatient autoimmune and ILD workup if changes on CT chest do not resolve Subjective Date/time seen: 12/10/19 12:55 Interval history: 74 y/o with bilateral atelectasis and possible ILD is feeling better, denies dyspnea with exertion. 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 Bibasilar interstitial opacities seen on CXR in 2018 as well. Review of Systems Review of Systems: All systems reviewed & are unremarkable except as noted in HPI and below Exam Const: General: comfortable and no acute distress Eyes: General: appearance normal, both eyes and all related structures Neck: Neck: supple and no JVD Resp: Auscultation: crackles (fine inspiratory crackles to bilateral bases ) bilateral Cardio: Rate: regular rate Rhythm: regular rhythm Heart sounds: no murmurs GI: Auscultation: normal bowel sounds Skin: General skin exam: normal color and no rashes or lesions noted Neuro: Cognition (Neuro): normal cognition Speech: normal speech Extrem: General: normal to inspection Psych: Mental Status: mental status grossly normal Affect: normal affect Objective Data Vital Signs Vital Signs: Vital Signs - 24 hr 12/09/19 14:00 12/09/19 20:00 12/10/19 00:09 Temperature 36.2 C L 36.9 C 36.5 C Pulse Rate 101 H 101 H 100 Respiratory Rate 16 20 16 Blood Pressure 97/61 L 102/67 119/60 Pulse Oximetry 96 94 96 12/10/19 06:00 Temperature 36.4 C Pulse Rate 93 Respiratory Rate 20 Blood Pressure 118/57 L Pulse Oximetry 97 Intake/Output Intake/Output: Intake & Output 12/07/19 12/08/19 12/09/19 12/10/19 23:59 23:59 23:59 23:59 Intake Total 2230 990 2260 440 Output Total 8793 069 5223 700 Balance 4850 217 7280 -260 Meds/Results Medications: Active Medications Generic Name Dose Route Start Last Admin Trade Name Freq PRN Reason Stop Dose Admin Acetaminophen 650 mg 12/01/19 09:05 12/06/19 13:57 Tylenol Tablet PO 650 mg TID PRN Administration pain 1-3 Al Hydrox/Mg Hydrox/Simethicone 30 ml 12/04/19 07:38 12/09/19 18:07 Mylanta PO 30 ml TID PRN Administration Indigestion Albuterol 2.5 mg 12/01/19 13:38 12/04/19 16:36 Albuterol Sulf Neb 2.5mg/0.5ml INHALATION 2.5 mg Q6HRT PRN Administration Shortness Of Breath Calcium Polycarbophil 625 mg 12/07/19 17:00 12/10/19 09:20 Fiber Con PO 625 mg BID BRE Administration Enoxaparin Sodium 40 mg 11/30/19 09:00 12/10/19 09:21 Lovenox SUB-Q 40 mg DAILY BRE Administration Famotidine 10 mg 12/02/19 21:00 12/10/19 09:20 Pepcid Ac PO 10 mg Q12HR BRE Administration Furosemide 40 mg 12/06/19 09:00 12/10/19 09:21 Lasix Tablet PO 40 mg DAILY BRE Administration Lidocaine 1 patch 12/03/19 09:00 12/10/19 09:20 Lidoderm TRANSDERM 1 patch DAILY BRE Administration Lisinopril 10 mg 12/03/19 09:00 12/10/19 09:21 Prinivil PO 10 mg DAILY BRE Administration Magnesium Oxide 400 mg 12/07/19 09:00 12/10/19 09:21 Mag-Ox PO 400 mg QAM BRE Administration Ondansetron HCl 4 mg 11/29/19 18:27 12/04/19 03:11 Zofran Inj IV PUSH 4 mg Q4H PRN Administration Nausea Potassium Chloride 40 meq 12/05/19 08:00 12/07/19 11:56 Kcl Tablet PO 40 meq TIDWM BRE Administration Sodium Chloride 1 gm 12/09/19 13:05 12/10/19 09:21 Sodium Chloride PO 1 gm BID BRE Administration Tramadol HCl 25 mg 12/03/19 16:57 12/06/19 17:47 Ultram PO 25 mg Q6H PRN Administration Pain Rated 4-6 Radiology Results: ITS Impressions Abdomen/Pelvis CTA 11/29/19 17:42 IMPRESSION: 1. Large volume of colonic stool and mild colonic distention without focal transition point,
[2019-12-10 14:00] VITALS: BP 120/80; RESP 18; TEMP 37.3; O2SAT 98
--- NOTE | 2019-12-10 14:01 | PM.DS ---
DS: Admitting Diagnosis Admitting Diagnosis Admitting Diagnosis: Elevated white blood cell count, unspecified DS: Discharge Diagnosis Discharge Diagnosis (1) Leukocytosis: Qualifiers: Leukocytosis type: unspecified Qualified Code(s): D72.829 - Elevated white blood cell count, unspecified Code(s): D72.829 - Elevated white blood cell count, unspecified Status: Acute Assessment and Plan: WBC elevated on admission at 20K that improved down to 11.7K before worsening to 18K. UA negative. CXR on admission (11/28) showing mild atelectasis in the lung bases. Repeat CXR 12/04 showing development of patchy basilar opacities probably acute infectious process on chronic interstitial lung disease. Was on Azithro, Rocephin and Augmentin. Was also on Doxy at one point. No fevers. O2 requirement but weaned to RA. BCx negative. Abx stopped 12/07/19. WBC dropped to 10K but with persistent bandemia and now monocytosis. Either bone marrow strain or just recovery from recent infection. Doubt persistent infection since she is asymptomatic. Will repeat CBCd as outpatient. (2) Lactic acidosis: Code(s): E87.2 - Acidosis Status: Acute Assessment and Plan: Lactic acid elevated on admission and climbed to 5.6 before normalizing. Etiology unclear. Probably related to PNA. (3) Pneumonia: Code(s): J18.9 - Pneumonia, unspecified organism Status: Acute Assessment and Plan: Suspect patient with PNA present on admission resulting in the elevated lactic acid level and elevated white count. She was treated appropriately with antibiotics and her symptoms appear to have resolved. This may have been difficult to recognize due to her interstitial lung disease. (4) Constipation: Code(s): K59.00 - Constipation, unspecified Status: Acute Assessment and Plan: CTA of her abdomen pelvis was ordered in the ER which found her to have large volume of colonic stool and mild colonic distension without focal transition point, likely ileus. Constipation improved. Off all scheduled bowel medication now. Off Bentyl. Obstructive series showing gaseous distention of colon. Eating better. Did develop diarrhea most likely related to liquid diet and bowel medications. She was started on fiber. Diarrhea resolved with fiber and improved oral intake. (5) Sinus tachycardia: Code(s): R00.0 - Tachycardia, unspecified Status: Resolved Assessment and Plan: Possibly due to volume depletion. Only mildly elevated at times (6) Acute renal injury: Code(s): N17.9 - Acute kidney failure, unspecified Status: Resolved Assessment and Plan: Cr 1.4 on admisison but normal now. Related to above. (7) Incidental lung nodule, > 3mm and < 8mm: Code(s): R91.1 - Solitary pulmonary nodule Status: Acute Assessment and Plan: Possible 6mm nodule noted by CT scan but not mentioned in the CT of the chest. Probably more scarring related. Will defer to Pulmonary . (8) Hyponatremia: Code(s): E87.1 - Hypo-osmolality and hyponatremia Status: Acute Assessment and Plan: Na 129 on admission that improved to 133 before trending downward to 124. Jena elevated at 84 with FENa 0.3%. Inappropriate urine Na but may be dry as well from diarrhea. TSH and cortisol okay. Given IV fluids with Na improved to 127. Suspect this will continue to improve since the diarrhea has stopped and she is eating normally. Will continue NaCl tablets for 1 week then stop. Repeat BMP as outpatient. (9) Hyperglycemia: Code(s): R73.9 - Hyperglycemia, unspecified
--- NOTE | 2019-12-15 11:10 | PC.NURSE ---
VALENTINE results faxed to Dr. Ulloa. Dr. Garcia aware of findings.
== END 2019-12-10 15:30 | disposition home health service (06) | DRG 682 ==
LOC: ANHED 19:10 → ANH3MEDSUR 19:23
PROVIDERS: Emergency Medicine; Family Medicine; Internal Medicine; Internal Medicine Critical Care Medicine; Physician Assistant; Admitting Provider Family Medicine; Emergency Provider General Practice; PCP Family Medicine; Visit Provider Internal Medicine
DX: N17.9 Acute kidney failure, unspecified (principal); J18.9 Pneumonia, unspecified organism; E87.1 Hypo-osmolality and hyponatremia; K52.1 Toxic gastroenteritis and colitis; E87.2 Acidosis; J84.9 Interstitial pulmonary disease, unspecified; T50.995A Adverse effect of other drugs, medicaments and biological substances, initial encounter; K59.00 Constipation, unspecified; D72.829 Elevated white blood cell count, unspecified; R73.9 Hyperglycemia, unspecified; E86.0 Dehydration; R91.1 Solitary pulmonary nodule; R00.0 Tachycardia, unspecified; I10 Essential (primary) hypertension; M47.896 Other spondylosis, lumbar region; I27.20 Pulmonary hypertension, unspecified; E66.9 Obesity, unspecified; Z68.31 Body mass index [BMI] 31.0-31.9, adult; E78.5 Hyperlipidemia, unspecified; F32.9 Major depressive disorder, single episode, unspecified; F41.9 Anxiety disorder, unspecified; Z98.42 Cataract extraction status, left eye; Z98.41 Cataract extraction status, right eye
CPT/HCPCS: 36415; 51701; 71045; 71275; 74018; 74019; 74174; 80048; 80053; 80069; 81001; 82533; 82570; 82948; 83036; 83605; 83690; 83735; 83880; 83930; 84100; 84132; 84295; 84300; 84443; 84484; 85025; 85027; 86038; 86039; 86140; 87040; 87449; 87899; 93005; 93306; 94640; 96361; 96372; 96374; 96375; 96376; 97110; 97116; 97161; 97165; 97530; 97535; 99285; A9270; G0378; J0696; J1170; J1650; J2270; J2405; J2765; J3475; J3480; J7030; Q9967

== ENCOUNTER 2020-02-23 09:49 | Outpatient (NON) | payer MEDICARE, SELFPAY ==
[2020-02-23 12:32] LABS: Anion Gap 7 mmol/L (8-16); Blood Urea Nitrogen 11 mg/dL (7-17); Calcium 9.3 mg/dL (8.4-10.2); Carbon Dioxide 24 mmol/L (22-30); Chloride 97 mmol/L (98-107); Estimated Glomerular Filt Rate > 60; Glucose 101 mg/dL (65-105); Magnesium 1.4 mg/dL (1.6-2.3); Potassium 4.8 mmol/L (3.4-5.0); Sodium 128 mmol/L (137-145)
== END 2020-02-23 09:50 ==
PROVIDERS: PCP Family Medicine
DX: E83.42 Hypomagnesemia (principal); E87.6 Hypokalemia
CPT/HCPCS: 80048; 83735

== ENCOUNTER 2020-03-16 13:05 | Outpatient (NON) | payer MEDICARE, SELFPAY ==
[2020-03-16 13:39] LABS: Anion Gap 9 mmol/L (8-16); Blood Urea Nitrogen 12 mg/dL (7-17); Calcium 9.3 mg/dL (8.4-10.2); Carbon Dioxide 22 mmol/L (22-30); Chloride 98 mmol/L (98-107); Estimated Glomerular Filt Rate > 60; Glucose 120 mg/dL (65-105); Potassium 3.4 mmol/L (3.4-5.0); Sodium 129 mmol/L (137-145)
== END 2020-03-16 13:06 ==
PROVIDERS: PCP Family Medicine; Visit Provider Internal Medicine Nephrology
DX: E83.42 Hypomagnesemia (principal); E87.6 Hypokalemia; E87.1 Hypo-osmolality and hyponatremia; K52.9 Noninfective gastroenteritis and colitis, unspecified; I10 Essential (primary) hypertension
CPT/HCPCS: 80048; 83735

== ENCOUNTER 2020-03-22 14:14 | Outpatient (NON) | payer MEDICARE, SELFPAY ==
[2020-03-22 14:45] LABS: Anion Gap 11 mmol/L (8-16); Blood Urea Nitrogen 10 mg/dL (7-17); Calcium 9.7 mg/dL (8.4-10.2); Carbon Dioxide 20 mmol/L (22-30); Chloride 98 mmol/L (98-107); Estimated Glomerular Filt Rate > 60; Glucose 140 mg/dL (65-105); Magnesium 1.2 mg/dL (1.6-2.3); Sodium 129 mmol/L (137-145)
== END 2020-03-22 14:15 ==
LOC: HOME HLTH 14:16
PROVIDERS: PCP Family Medicine; Visit Provider Internal Medicine Nephrology
DX: E83.42 Hypomagnesemia (principal); I10 Essential (primary) hypertension
CPT/HCPCS: 80048; 83735

== ENCOUNTER 2020-05-11 07:31 | Outpatient (CLI) | payer MEDICARE, SELFPAY ==
--- NOTE | ~2020-05-11 | CT_ITS ---
EXAMINATION: CT soft tissue neck chest w EXAM DATE: 05/11/2020 08:31 INDICATION: Vocal cord paralysis TECHNIQUE: Spiral CT of the neck and chest was performed following intravenous injection of 1 mL Omni paque 350. Axial, coronal and sagittal images of the neck were reviewed. Axial, coronal and sagitta l images of the chest were reviewed. Coronal maximum intensity pixel images of chest reviewed. The dose-length product (DLP) for this examination was 721.46 mGy-cm. The exposure was tailored accordin g to patient size (auto mA exposure control), and iterative reconstruction (ASIR) was used as additio nal dose reduction technique. Comparison is made to prior examination from 11/30/2019. FINDINGS: NECK: The right vocal cord is midline, could indicate paralysis. No supraclavicular or superior media stinal mass or lymphadenopathy. The thyroid gland is unremarkable. The submandibular and parotid gl ands are symmetric. No cervical lymphadenopathy. Parapharyngeal and pre-glottic fat planes are pre served. There is bilateral carotid arterial sclerosis without surgical grade stenosis. The orbits are unremarkable. Visualized sinuses and mastoid air cells are well aerated. There is cervical sp ondylosis. CHEST: Interlobular septal thickening probably chronic interstitial lung disease. No change in the 5 mm left lower lobe nodule, likely granuloma. There are no pleural or pericardial effusions. Trache obronchial tree is patent. There is no mediastinal, hilar or axillary lymphadenopathy. There is n o pneumothorax. Heart normal in size. There is mild coronary arterial calcification, arterial scl erosis. No central pulmonary emboli. Large gastroesophageal hiatal hernia. There is splenic flexure colonic wall thickening, possible colitis. There is thoracic spondylosis without osteoblastic or oste olytic lesions identified. IMPRESSION: 1. No cervical, supraclavicular or superior mediastinal mass identified. 2. Midline right vocal cord could indicate paralysis. 3. Moderate chronic interstitial lung disease. 4. Large hiatal hernia. 5. Possible colitis. Please note that colon has similar appearance on prior study. Reviewed, dictated and finalized at location A. N MACHINE OPERATOR IMPRESSION: 1. No cervical, supraclavicular or superior mediastinal mass identified. 2. Midline right vocal cord could indicate paralysis. 3. Moderate chronic interstitial lung disease. 4. Large hiatal hernia. 5. Possible colitis. Please note that colon has similar appearance on prior st y.
[2020-05-11 08:24] LABS: Estimated Glomerular Filt Rate > 60
== END 2020-05-11 07:32 | disposition home or self-care (01) ==
PROVIDERS: PCP Family Medicine
DX: J38.01 Paralysis of vocal cords and larynx, unilateral (principal); K44.9 Diaphragmatic hernia without obstruction or gangrene; R91.8 Other nonspecific abnormal finding of lung field
CPT/HCPCS: 70491; 71260; Q9967

== ENCOUNTER 2020-07-08 15:49 | Outpatient (CLI) | payer MEDICARE, SELFPAY | END 2020-07-08 15:50 | disposition home or self-care (01) | LOC: ANHCOVIDVC 15:49 | PROVIDERS: PCP Family Medicine | DX: Z23 Encounter for immunization (principal) | CPT/HCPCS: 0001A; 91300 ==

== ENCOUNTER 2020-07-29 15:45 | Outpatient (CLI) | payer MEDICARE, SELFPAY | END 2020-07-29 15:46 | disposition home or self-care (01) | LOC: ANHCOVIDVC 15:45 | PROVIDERS: PCP Family Medicine | DX: Z23 Encounter for immunization (principal) | CPT/HCPCS: 0002A; 91300 ==

== ENCOUNTER → 2020-12-21 10:33 | Outpatient (CLI) | payer MEDICARE, MEDICAID, SELFPAY ==
--- NOTE | ~2020-12-21 | MM_ITS ---
EXAMINATION: [facility] HISTORY: Screening mammogram TECHNIQUE: Craniocaudal and mediolateral oblique 3-D tomosynthesis images were obtained and synthetic 2-D images were generated. CAD analysis was submitted and interpreted. COMPARISON: 08/05/2018, 05/15/2016, 05/11/2014 BREAST PARENCHYMAL COMPOSITION: The breasts are heterogeneously dense, which may obscure small masses . FINDINGS: There is no evidence of suspicious mass, calcification, or architectural distortion to sugg est malignancy in either breast. There has been no suspicious interval change. IMPRESSION: 1. No mammographic evidence of malignancy. 2. Recommend routine screening mammography in one year. BI-RADS Category 1: Negative Reviewed, dictated and finalized at location D.
--- NOTE | ~2020-12-21 | DEXA_ITS ---
Bone Density Report Name: Corrine Leger Age: 75 Sex: Female Ethnicity: White Date of : 1945 Indication: postmenopausal; screening for osteoporosis; height loss; hysterectomy; Referring Provider: Sunday Ulloa Study: Bone densitometry was performed. Exam Date: December 21, 2020 Accession number: [id number] Bone Density: Region BMD T-score Z-score Classification AP Spine (L1-L4) 0.936 -1.0 1.3 Normal Femoral Neck (Left) 0.522 -2.9 -0.9 Osteoporosis Total Hip (Left) 0.748 -1.6 0.1 Osteopenia Femoral Neck (Right) 0.589 -2.3 -0.3 Osteopenia Total Hip (Right) 0.790 -1.2 0.5 Osteopenia Total Hip Mean 0.769 -1.4 0.3 Osteopenia World Health Organization criteria for BMD impression classify patients as: Normal (T-score at or above -1.0), Osteopenia (T-score between -1.0 and -2.5), or Osteoporosis (T-score at or below -2.5). 10-year Fracture Risk: FRAX not reported because: Some T-score for Spine Total or Hip Total or Femoral Neck at or below -2.5 Clinical Information Provided by Patient: Has used the following medications: Vitamin D, Calcium Has the following medical conditions: Hysterectomy, collitis Patient maximum height was 62 Menopause Age: 51 No regular weight bearing exercise Drinks caffeinated beverages Onset of menses at age 14 Number of children 2 Impression: The patient has osteoporosis, based on the Left Femoral Neck T-score. Discussion: INCREASED RISK OF FRACTURE. BONE DENSITY IS UNDESIRABLY LOW AT ONE OR MORE SKELETAL SITES, CONSISTENT WITH POSTMENOPAUSAL OSTEOPOROSIS. This patient's lowest T-score meets the World Health Organization's (WHO) criteria for osteoporosis at one or more sites (T-score -2.5 or below). In untreated patients, the risk of osteoporotic fracture increases approximately two-fold for each 1.0 SD decrease in T-score. Low bone density is not the only risk factor for fracture; also consider factors such as patient's age, frailty or poor health, risk of falling, risk of injury, previous osteoporotic fracture, family history of osteoporosis, cigarette smoking, low body weight, etc. Not everyone with low bone mineral density has osteoporosis; osteomalacia and other metabolic bone disorders should also be considered. Patients who have osteoporosis should be evaluated for specific diseases and conditions (secondary causes) that may cause or contribute to bone loss. The [place] [employer] Endocrinologists (AACE) and National Osteoporosis Foundation (NOF) recommend pharmacologic intervention for all postmenopausal women whose T-score is in this range. The patient should follow a healthful lifestyle (good nutrition with adequate calcium and vitamin D, and appropriate weight-bearing exercise). Follow-Up: Consider a repeat BMD and Vertebral Fracture Assessment (VFA
== END ==
PROVIDERS: PCP Family Medicine; Visit Provider Family Medicine
DX: Z12.31 Encounter for screening mammogram for malignant neoplasm of breast (principal); Z78.0 Asymptomatic menopausal state; M81.0 Age-related osteoporosis without current pathological fracture; M85.852 Other specified disorders of bone density and structure, left thigh; M85.851 Other specified disorders of bone density and structure, right thigh
CPT/HCPCS: 77063; 77067; 77080

== ENCOUNTER → 2021-01-20 10:57 | Outpatient (CLI) | payer MEDICARE, MEDICAID, SELFPAY ==
--- NOTE | ~2021-01-20 | XR_ITS ---
XR sacroiliac joints min 3V DATE: 01/20/2021 13:14 INDICATION: Abnormal neurological findings TECHNIQUE: AP and oblique views COMPARISON: None FINDINGS: Diffuse osteopenia. The sacroiliac joints are intact. No fracture, dislocation, erosive change or ankylosis. There is rotatory levoscoliosis and multilevel degenerative disc disease of the lumbar spine. Bilater al hip osteoarthritis. IMPRESSION: Osteopenia Sacroiliac joints are intact Rotatory levoscoliosis and multilevel degenerative disc disease Reviewed, dictated and finalized at Location A. Reviewed, dictated and finalized at location A.
--- NOTE | ~2021-01-20 | XR_ITS ---
XR hand BI arthritis min 3V DATE: 01/20/2021 13:14 INDICATION: Abnormal neurological findings TECHNIQUE: 4 views of each hand COMPARISON: None FINDINGS: There is chondrocalcinosis at the triangular cartilage and wrist bilaterally. There is bila teral polyarticular osteoarthritis, mildly affecting the right triscaphe, first carpometacarpal joint s and to a greater extent right first through third metacarpophalangeal joints, interphalangeal joint of the first digit, prominently involving the left first carpometacarpal joint, with mild involvemen t at the left first metacarpophalangeal and some interphalangeal joints. No fracture, dislocation, periosteal reaction or bone destruction or erosive change of either hand is detected. 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
--- NOTE | ~2021-01-20 | XR_ITS ---
XR foot RT standing 2V DATE: 01/20/2021 13:13 INDICATION: Abnormal immunological findings TECHNIQUE: AP and lateral views COMPARISON: None FINDINGS: Pes planus. Osteopenia. Plantar calcaneal enthesopathy. There are some calcification of the soft tissues of the heel. There is severe osteoarthritic change at the first metatarsophalangeal joint, virtually obliterating the joint space, with prominent hypertrophic spurring. There is mild medial subluxation at the second metatarsophalangeal joint. No fracture or dislocation, periosteal reaction or bone destruction is evident. IMPRESSION: Plantar calcaneal enthesopathy and soft tissue calcification of the heel Pes planus Severe osteoarthritis at the first metatarsophalangeal joint Osteopenia Reviewed, dictated and finalized at location A.
--- NOTE | ~2021-01-20 | XR_ITS ---
XR foot LT standing 2V DATE: 01/20/2021 13:13 INDICATION: Abnormal neurological findings TECHNIQUE: AP and lateral views COMPARISON: None FINDINGS: Diffuse osteopenia. Pes planus. Prominent plantar calcaneal enthesopathy with some subjacent soft tissue calcification of a healed. There is hallux valgus and bunion deformity. There is mild osteoarthritic change at the first metatar sophalangeal joint. No fracture or dislocation, periosteal reaction or bone destruction. IMPRESSION: Osteopenia Pes planus Plantar calcaneal enthesopathy Osteoarthritic the first metatarsophalangeal joint Reviewed, dictated and finalized at location A.
== END ==
PROVIDERS: PCP Family Medicine; Visit Provider Internal Medicine
DX: R76.8 Other specified abnormal immunological findings in serum (principal); M85.88 Other specified disorders of bone density and structure, other site; M77.32 Calcaneal spur, left foot; M19.072 Primary osteoarthritis, left ankle and foot; M77.31 Calcaneal spur, right foot; M19.071 Primary osteoarthritis, right ankle and foot; M19.041 Primary osteoarthritis, right hand; M19.042 Primary osteoarthritis, left hand
CPT/HCPCS: 72202; 73130; 73620

== ENCOUNTER 2021-02-02 09:35 | Outpatient (CLI) | payer MEDICARE, MEDICAID, SELFPAY ==
--- NOTE | ~2021-02-02 | CT_ITS ---
EXAMINATION: CT chest high resolution wo wi DATE: 02/02/2021 09:52 INDICATION: Interstitial pulmonary disease, shortness of breath TECHNIQUE: Computed tomography (CT) of the chest was performed without intravenous contrast. The dose -length product (DLP) was 137.74 mGy-cm. Automated exposure control and iterative reconstruction tech [employer] were employed. COMPARISON: 05/11/2020, 11/30/2019 FINDINGS: There are widespread subpleural groundglass and reticular opacities. A 7 mm nodule of the l eft lower lobe is not significantly changed in size. No superimposed focal airspace opacity is identi fied. There is no pleural effusion or pneumothorax. Cardiomegaly is noted. There is chronic mild medi astinal lymphadenopathy, likely reactive. A moderate-sized hiatal hernia is noted. Stones are present in the nondistended gallbladder. There is severe thoracic spondylosis. IMPRESSION: 1. Stable chronic interstitial lung disease in a pattern of nonspecific interstitial pneumonia (NSIP) . 2. Cardiomegaly. Reviewed, dictated and finalized at location A. IMPRESSION: 1. Stable chronic interstitial lung disease in a pattern of nonspecific interst itial pneumonia (NSIP). 2. Cardiomegaly.
== END 2021-02-02 09:36 | disposition home or self-care (01) ==
PROVIDERS: PCP Family Medicine; Visit Provider Internal Medicine Critical Care Medicine
DX: J84.9 Interstitial pulmonary disease, unspecified (principal); I51.7 Cardiomegaly
CPT/HCPCS: 71250

== ENCOUNTER 2021-02-13 12:22 | Outpatient (CLI) | payer MEDICARE, MEDICAID, SELFPAY ==
--- NOTE | 2021-02-14 13:12 | WPDPFTINT ---
PFT Procedure Performed PFT Procedure Performed Spirometry with Pre/Post Bronchodilator Plethysmography (Lung Vol) Diffusing Cap (DLCO) Flow Vol Loop PFT Interpretation Lung volumes were measured with the body plethysmography method. The lung volumes are unremarkable. Spirometry showed diminished expiratory flow rates and a normal FEV1 to FVC ratio of 79%. Following administration of an inhaled bronchodilator there was no significant increase in expiratory flow. Lung diffusion capacity is moderately reduced at 52% predicted. This restrictive spirometry pattern in the face of a normal total lung capacity is indicative of a nonspecific pattern. Flow volume loop is unremarkable. Impression: Nonspecific pattern. Moderately reduced lung diffusion capacity.
--- NOTE | 2021-02-14 13:19 | WPDSIXMINUTE ---
Six Minute Walk Procedure Procedure Performed Pulmonary Stress Test (6 min walk) Six Minute Walk This 6 minute walk test was carried out with the patient breathing ambient air. The pre-walk O2 saturation was 98%. The patient was able to walk approximately 305 meters with no stops. The perceived dyspnea at baseline was 2 on the Otf scale and increased to 4 post-walk. The oxyhemoglobin saturation remained over 95% throughout the walk. Impression: No evidence of oxyhemoglobin desaturation on this test.
== END 2021-02-13 12:23 | disposition home or self-care (01) ==
LOC: ANHPFT 12:32
PROVIDERS: PCP Family Medicine; Visit Provider Internal Medicine Critical Care Medicine
DX: J84.9 Interstitial pulmonary disease, unspecified (principal)
CPT/HCPCS: 94060; 94618; 94726; 94729

== ENCOUNTER 2021-11-17 08:34 | Outpatient (CLI) | payer MEDICARE, MEDICAID, SELFPAY ==
--- NOTE | ~2021-11-17 | CT_ITS ---
EXAMINATION:CT chest high resolution wo co DATE: 11/17/2021 09:08 INDICATION: Interstitial lung disease. Systemic lupus erythematosus. TECHNIQUE: Computed tomography (CT) of the chest was performed without intravenous contrast. Automate d exposure control and iterative reconstruction technique were employed. The dose-length product (DLP ) was 127.68 mGy-cm. COMPARISON: Chest CT 02/02/2021 FINDINGS: Lung volumes are small. The lungs demonstrate widespread peripheral septal thickening assoc iated with groundglass opacities and architectural distortion. There is a 5 mm nodule in left lower l obe without change, likely benign. No honeycombing or bronchiectasis. No pleural effusion. The heart size is normal. There are coronary artery calcifications. No pericardial effusion. There is a large s liding hiatal hernia. There are gallstones in the gallbladder, which is normal in size. There is thor acic dextroscoliosis and severe spondylosis. IMPRESSION: 1. Chronic interstitial lung disease in a pattern of nonspecific interstitial pneumonia (NSIP), stabl e from 02/02/2021. 2. Large sliding hiatal hernia. Reviewed, dictated and finalized at location A. IMPRESSION: 1. Chronic interstitial lung disease in a pattern of nonspecific interstitial p neumonia (NSIP), stable from 02/02/2021. 2. Large sliding hiatal hernia.
== END 2021-11-17 08:35 | disposition home or self-care (01) ==
PROVIDERS: PCP Family Medicine; Visit Provider Internal Medicine
DX: M32.9 Systemic lupus erythematosus, unspecified (principal); K44.9 Diaphragmatic hernia without obstruction or gangrene; J84.9 Interstitial pulmonary disease, unspecified
CPT/HCPCS: 71250

== ENCOUNTER 2021-12-06 09:32 | Outpatient (CLI) | payer MEDICARE, MEDICAID, SELFPAY ==
--- NOTE | 2021-12-06 12:42 | WPDPFTINT ---
PFT Procedure Performed PFT Procedure Performed Spirometry with Pre/Post Bronchodilator Plethysmography (Lung Vol) Diffusing Cap (DLCO) Flow Vol Loop PFT Interpretation This is a pulmonary function test with pre and post-bronchodilator spirometry, plethysmography and diffusing capacity. The test was performed and results interpreted in accordance with the 2019 and 2005 ATS/ERS Task Force guidelines respectively using the Global Lung Function Initiative-2012 reference equations. Patient demonstrated good effort and cooperation. Reproducibility criteria were met. The quality of the pre bronchodilator spirometry maneuver was Grade A and post bronchodilator spirometry maneuver was Grade A. Findings: Spirometry: The contour the inspiratory and expiratory flow tracing are normal. The pre bronchodilator FVC is 1.57 L, 64% predicted. The pre bronchodilator FEV1 is 1.32 L, 70% predicted. The pre bronchodilator FEV1: FVC ratio was 84%. The post bronchodilator FVC is 1.76 L, representing 190 mL increase which corresponds to a 12% increase. The post bronchodilator FEV1 is 1.51 L, representing 190 mL increase which corresponds to a 14% increase. The post bronchodilator FEV1: FVC ratio was 86%. Plethysmography: The total lung capacity is 2.52 L, 55% predicted. The functional residual capacity is 1.11 L, 42% predicted. The residual volume is 0.84 L, 40% predicted. Diffusing capacity: The diffusing capacity unadjusted for hemoglobin and carboxyhemoglobin is 9.9, 53% predicted. The diffusing capacity adjusted for alveolar volume is 4.62, 106% predicted. Impression: There is a mild restrictive ventilatory abnormality. The spirometry is normal without evidence of an obstructive abnormality. There is no significant improvement after inhaling a single dose of albuterol S the absolute increase in FEV1 was less than 200 mL. The diffusing capacity unadjusted for hemoglobin and carboxyhemoglobin is moderately decreased and normalizes when adjusted for alveolar volume. There are no prior studies for comparison.
== END 2021-12-06 09:33 | disposition home or self-care (01) ==
LOC: ANHPFT 09:34
PROVIDERS: PCP Family Medicine; Visit Provider Internal Medicine Critical Care Medicine
DX: J84.9 Interstitial pulmonary disease, unspecified (principal); R94.2 Abnormal results of pulmonary function studies
CPT/HCPCS: 94060; 94726; 94729

== ENCOUNTER 2022-02-07 07:51 | Outpatient (CLI) | payer MEDICARE, MEDICAID, SELFPAY ==
--- NOTE | 2022-02-07 12:26 | WPDSIXMINUTE ---
Six Minute Walk Procedure Procedure Performed Pulmonary Stress Test (6 min walk) Six Minute Walk Six Minute Walk: This is a 6 minute walk test. The test was performed and interpreted in accordance with the 2014 ERS/ATS task force guidelines. Findings: The patient's resting room air oxygen saturation measured by pulse oximetry was 99% and heart rate was 70 bpm. Patient ambulated for 244 meters and oxygen saturation remained 97 to 98%. Heart rate at the end of the study was 94 bpm. The patient did not qualify for supplemental oxygen at rest or with ambulation. There are no prior studies for comparison.
== END 2022-02-07 07:52 | disposition home or self-care (01) ==
LOC: ANHPFT 07:52
PROVIDERS: PCP Family Medicine; Visit Provider Internal Medicine Critical Care Medicine
DX: J84.9 Interstitial pulmonary disease, unspecified (principal)
CPT/HCPCS: 94618

== ENCOUNTER 2022-02-07 13:56 | Outpatient (CLI) | payer MEDICARE, MEDICAID, SELFPAY ==
[2022-02-07 19:23] LABS: Basophils Percent Auto 0.4 % (0.2-1.2); Eosinophils Percent Auto 0.1 % (0-4.4); Hematocrit 37.8 % (37.0-47.0); Immature Granulocyte Absolute 0.04 K/mm3 (0.00-0.031); Immature Granulocyte Percent A 0.4 % (0-0.5); Lymphocytes Absolute Auto 1.31 K/mm3 (0.9-3.2); Lymphocytes Percent Auto 12.8 % (18.3-44.2); Mean Corpuscular HGB Conc 31.7 g/dl (32-36); Mean Corpuscular Hemoglobin 25.3 pg (26-34); Mean Corpuscular Volume 79.6 fl (80-100); Mean Platelet Volume 8.8 fl (7.4-10.4); Monocytes Absolute Auto 0.4 K/mm3 (0.1-0.6); Monocytes Percent Auto 3.9 % (2.6-8.5); Neutrophils Absolute Auto 8.5 K/mm3 (1.3-6.7); Neutrophils Percent Auto 82.4 % (45.5-73.1); Platelet Count Result 418 k/mm3 (150-375); Red Blood Count 4.75 M/mm3 (4.2-5.4); Red Cell Distribution Width 14.7 % (11.5-14.5); White Blood Count 10.3 K/mm3 (4.5-10.0)
[2022-02-07 19:28] LABS: Alanine Aminotransferase 28 U/L (6-35); Albumin Level 4.2 g/dL (3.5-5.1); Alkaline Phosphatase 137 U/L (38-126); Amylase 84 U/L (30-110); Anion Gap 10 mmol/L (8-16); Aspartate Amino Transferase 54 U/L (14-36); Bilirubin,Total 0.5 mg/dL (0.2-1.3); Blood Urea Nitrogen 19 mg/dL (7-17); Calcium 9.4 mg/dL (8.4-10.2); Carbon Dioxide 27 mmol/L (22-30); Chloride 92 mmol/L (98-107); Estimated Glomerular Filt Rate > 60; Glucose 112 mg/dL (65-110); Lipase 76 U/L (23-300); Potassium 3.9 mmol/L (3.4-5.0); Sodium 129 mmol/L (137-145)
== END 2022-02-07 13:57 | disposition home or self-care (01) ==
LOC: ANHGOSHLAB 13:58
PROVIDERS: PCP Family Medicine; Visit Provider Nurse Practitioner
DX: R10.9 Unspecified abdominal pain (principal)
CPT/HCPCS: 36415; 80053; 82150; 83690; 85025; 94618

== ENCOUNTER → 2022-02-09 12:49 | Outpatient (CLI) | payer MEDICARE, MEDICAID, SELFPAY ==
--- NOTE | ~2022-02-09 | US_ITS ---
US abdomen complete EXAMINATION: US Abdomen Complete INDICATION: Abdomen pain PROCEDURE: Realtime High Resolution abdomen ultrasound. COMPARISON: No prior studies for comparison FINDINGS: Gallbladder contains stones. No significant gallbladder wall thickening or pericholecystic fluid. Common bile duct measures 7 mm. Liver echotexture within normal limits without focal mass. Pancreas within normal limits. Pancreati c tail is obscured by bowel gas. Spleen is unremarkeable. Renal echotexture is within normal limits bilaterally without hydronephrosis, contour deforming mass or renal stone. Right kidney measures 10.4 cm. Left kidney measures 11.1 cm. Visualized aspects of the aorta and IVC are within normal limits. Mid and distal abdominal aorta not visualized due to bowel gas. Portal vein is patent. No sonographic Gee's sign indicated by the radha hnologist. IMPRESSION: 1: Cholelithiasis. Common duct upper normal measuring 7 mm. Reviewed, dictated and finalized at location A.
== END ==
PROVIDERS: PCP Family Medicine; Visit Provider Nurse Practitioner
DX: R10.9 Unspecified abdominal pain (principal); K80.20 Calculus of gallbladder without cholecystitis without obstruction
CPT/HCPCS: 76700

== ENCOUNTER 2022-04-06 08:14 | Outpatient (CLI) | payer MEDICARE, MEDICAID, SELFPAY ==
--- NOTE | 2022-04-06 08:33 | ECG_ITS ---
Measurements Intervals [place] Rate: 81 P: 0 OK: 187 QRS: -9 QRSD: 86 T: -12 QT: 368 QTc: 428 Interpretive Statements SINUS RHYTHM INFERIOR MYOCARDIAL INFARCTION [40+ ms Q WAVE AND/OR ST/T ABNORMALITY IN II/aVF], OF INDETERMINATE AGE COMPARED TO ECG 12/03/2019 10:43:19 NO SIGNIFICANT CHANGES Electronically Signed On 04-06-2022 10:23:37 [place] by Fauzia Noriega M.D.
[2022-04-06 08:48] LABS: Basophils Absolute Auto 0.1 K/mm3 (0.0-0.1); Basophils Percent Auto 0.5 % (0.2-1.2); Eosinophils Absolute Auto 0.1 K/mm3 (0-0.3); Eosinophils Percent Auto 1.1 % (0-4.4); Hematocrit 38.7 % (37.0-47.0); Hemoglobin 12.6 g/dL (12.0-15.0); Immature Granulocyte Absolute 0.04 K/mm3 (0.00-0.031); Immature Granulocyte Percent A 0.3 % (0-0.5); Lymphocytes Absolute Auto 2.33 K/mm3 (0.9-3.2); Mean Corpuscular HGB Conc 32.6 g/dl (32-36); Mean Corpuscular Hemoglobin 25.9 pg (26-34); Mean Corpuscular Volume 79.6 fl (80-100); Mean Platelet Volume 8.4 fl (7.4-10.4); Monocytes Absolute Auto 1.1 K/mm3 (0.1-0.6); Monocytes Percent Auto 9.1 % (2.6-8.5); Platelet Count Result 372 k/mm3 (150-375); Red Blood Count 4.86 M/mm3 (4.2-5.4); Red Cell Distribution Width 14.8 % (11.5-14.5); White Blood Count 11.6 K/mm3 (4.5-10.0)
[2022-04-06 09:01] LABS: Alanine Aminotransferase 18 U/L (6-35); Albumin Level 4.4 g/dL (3.5-5.1); Alkaline Phosphatase 109 U/L (38-126); Amylase 52 U/L (30-110); Anion Gap 9 mmol/L (8-16); Aspartate Amino Transferase 27 U/L (14-36); Bilirubin,Total 0.5 mg/dL (0.2-1.3); Blood Urea Nitrogen 17 mg/dL (7-17); Calcium 9.6 mg/dL (8.4-10.2); Carbon Dioxide 28 mmol/L (22-30); Chloride 94 mmol/L (98-107); Estimated Glomerular Filt Rate > 60; Glucose 103 mg/dL (65-110); Lipase 43 U/L (23-300); Potassium 4.2 mmol/L (3.4-5.0); Sodium 131 mmol/L (137-145)
== END 2022-04-06 08:15 | disposition home or self-care (01) ==
PROVIDERS: PCP Family Medicine; Visit Provider Surgery
DX: K80.10 Calculus of gallbladder with chronic cholecystitis without obstruction (principal); Z01.818 Encounter for other preprocedural examination
CPT/HCPCS: 36415; 80053; 82150; 82248; 83690; 85025; 93005

== ENCOUNTER 2022-04-16 01:34 | Day surgery (SDC) | payer MEDICARE, MEDICAID, SELFPAY ==
[2022-04-05 09:18] VITALS: BMI 27.5
--- NOTE | 2022-04-05 09:31 | PC.NURSE ---
Report to the Outpatient Waiting Room, entrance under the green pavilion located off [facility], at time __11:00AM on date ___04/16/22____. Planned Procedure Time: ___1:00PM . Time changes happen often and if your time is changed the preop area will call you the afternoon before. - You and your visitor will be asked to self-screen and do not enter if you have any COVID symptoms. - Only one visitor is requested with a max of two and NO children visitors are allowed at this time. - The patient visitor may be requested to leave or wait in car when not with patient due to distancing restrictions. - A mask is optional within the hospital. Patients may have clear liquids (water, carbonated beverages, clear teas, apple juice) until 3 hours prior to surgery with a maximum of 20 ounces. - No food from midnight until time of surgery Take the following medications with a SIP of water the morning of surgery: ___INHALER NEEDED Medications to discontinue per physician __HOLD ALL VITAMINS/SUPPLEMENTS 3 DAYS PRE-OP, HOLD MYCOPHENOLATE 3-4 DAYS PRE-OP Date to take last dose___04/12/22 Please no make-up, nail pitcairn islander, hairspray, perfume, deodorant, or body powder the day of surgery. No jewelry (including any body piercings) or valuables the day of surgery, leave them at home. Please take a shower or bath the night before, or the morning of, surgery with an antibacterial soap. Wear comfortable, loose fitting clothing. Children are encouraged to wear pajamas. - Jewelry must be removed prior to entering the operating room. Rings and piercings that are not removed may be cut off. - The hospital will not accept responsibility for valuables. - Please leave all valuables, including medications, at home the day of surgery. If you are going home after surgery, a licensed auto driver must drive you home. - NO public transportation without another adult if you receive anesthesia. - We recommend that an adult stay with you for 24 hours following discharge. - We also recommend that you do not drive, make important decision, drink alcoholic beverages, or take any drugs that were not prescribed by your health care provider for at least 24 hours after your discharge time. Follow any additional instructions given to you from your surgeon. If you or anyone in your household have experienced Covid symptoms in the past week, please notify your surgeon or the nurse liaison at the phone number below for possible testing. Telephone instructions given to __PATIENT and asked if any additional questions and then verbalized understanding. Patient advised to call surgeon office or pre surgery nurse liaison [phone] if any additional questions.
--- NOTE | 2022-04-15 21:04 | PM.HPGS ---
History of Present Illness History of Present Illness Consent: Risks, benefits, and alternatives of a laparoscopic cholecystectomy, possible intra-operative cholangiogram, possible open cholecystectomy have been discussed and questions answered. Patient agrees to proceed with procedure. Chief complaint: Chronic Cholecystitis with Cholelithiasis Narrative: Corrine Leger is a 77 year old that presented to the office at the request of Anita Barker NP for an evaluation of abdominal pain. Patient reports that she has had RUQ and epigastric abdominal pain and vomiting for several months. She reports that the pain occurs about 1-2 hours after eating. She reports the pain is a stabbing pain. She reports that her last episode of pain was She reports that at one time in FEB. she woke up with a slight pain and she ate a fried egg sandwich with bread. (she states she used olive oil to ferguson the egg). She said that she had chicken and rice soap and bread for lunch that same day. She reports between these two meals she had an episode of pain. She said it was not as bad as it has been at times in the past. She had an abdominal ultrasound on 02/09/22 that showed cholelithiasis, common duct upper limits of normal in size measuring at 7 mm. in diameter. She reports that her last colonoscopy was completed in 2019. She has on average 2 BMs a day. Patient's pervious abdominal surgical history includes a hysterectomy, x2, D&C, and an appendectomy. Patient takes daily medication for hypertension, lupus, high cholesterol, migraines and anxiety. Review of Systems Constitutional: Comments: Reports no additional complaints, Denies frequent falls, Denies headache(s) and Reports other (no recent weight change, no fever) Eyes Denies blurry vision, Denies itchy eyes, Denies photophobia and Denies spots in vision ENT Reports Normal hearing present, Denies headache(s), Denies hoarseness, Denies lip swelling and Denies sore throat Card Denies chest pain at rest, Denies irregular heart rhythm and Denies dyspnea Resp Denies chest congestion, Denies cough and Denies dyspnea GI Reports abdominal pain, Reports nausea and Reports vomiting Musc Denies abnormal gait and Denies back pain Skin/ Breast Denies new lesions, Denies rash and Denies wounds Neuro Reports Normal hearing present, Denies abnormal gait, Denies confusion, Denies frequent falls, Denies headache(s), Denies convulsions and Denies seizure-like activity Psych Denies confusion and Denies depression Endo Denies cold intolerance and Denies heat intolerance She has Type II DM, and Lupus Tani/ Lymph Denies easy bleeding, Denies easy bruising and Denies lymphadenopathy Aller/ Immun Denies itchy eyes and Denies lip swelling PMF Past Medical History Medical History (Updated 04/15/22 @ 21:34 by Edmond Rodriguez MD) Anxiety Chronic ankle pain, bilateral Chronic interstitial lung disease Colitis Depression Dyslipidemia Essential (primary) hypertension Headache, migraine Hypomagnesemia Hyponatremia noted 2012 Intractable migraine without aura and without status migrainosus Large hiatal hernia Lichen planus Lumbar spondylosis severe noted on CT scan 11/29/2019 Lupus (systemic lupus erythematosus) Paralysis of left vocal cord Scar tissue both eye-repair in 2017 Ulcerative colitis Vocal cord paralysis syndrome Surgical History Surgical History H/O: hysterectomy (~05/1985) History of 2 sections History of appendectomy History of cataract extraction 12/18/2014 and 2016 History of D&C Family History Family History Sibling , 2019 with esophageal cancer Esophageal cancer, Onset Age: 83 October 2019 Daughter Lupus daughter has lupus, on cellcept Father Psoriasis father has psoriasis Other Family history of coronary artery disease
[2022-04-16] VITALS (9 sets, daily range): BP systolic 98–167; BP diastolic 62–81; PULSE 58–89; RESP 16–20; TEMP 36.7–36.8; O2SAT 98–100
[2022-04-16] MEDS: ACETAMINOPHEN 500 MG TABLET 1000 MG PO (11:58)
[2022-04-16] MEDS: LACTATED RINGERS 1,000 ML 30 ML IV CONT ×2 (12:13→15:06)
[2022-04-16] MEDS: KETOROLAC 15 MG/ML VIAL (*BKC) IV PUSH (12:18)
[2022-04-16 12:31] LABS: Sodium 130 mmol/L (137-145)
--- NOTE | 2022-04-16 13:09 | WPDANESEPPF ---
Anes - Initial Pre Proc Eval Procedure: Operation Date: 04/16/22 13:00 Proposed Procedures p Laparoscopic Cholecystectomy with Possible Intraoperative Cholangiogram, Possible Open - Edmond Rodriguez MD Date/Time: 04/16/22 13:09 Surgeon: Edmond Rodriguez MD Pre Op Diagnosis: Chronic Cholecystitis with Cholelithiasis Patient Data Age: 77 Gender: F Height: 1.55 m Weight: 65.6 kg Last Vital Signs Temp 98.2 F 04/16/22 12:20 Pulse 89 04/16/22 12:20 Resp 16 04/16/22 12:20 BP 156/62 H 04/16/22 12:20 Pulse Ox 98 04/16/22 12:20 O2 Del Method Room Air 04/16/22 12:20 Allergies Allergy/AdvReac Type Severity Reaction Status Date / Time erythromycin base Allergy Intermediate hot Verified 04/16/22 11:39 flashes, RASH Sulfa (Sulfonamide Allergy Intermediate Itching Verified 04/16/22 11:39 Antibiotics) nickel Allergy REDNESS, Verified 04/16/22 11:39 IRRITATION, RASH Home Medications Medication Instructions Recorded Confirmed Type calcium carbonate 600 mg calcium 600 mg PO DAILY 05/02/21 04/16/22 History (1,500 mg) tablet (Calcium) multivitamin (Multiple Vitamins 1 tablet PO DAILY 05/02/21 04/16/22 History tablet) vitamin b12 1 tab-cap PO DAILY 05/02/21 04/16/22 History lactobacillus combo no.13 1 1 cap PO DAILY 07/07/21 04/16/22 History billion cell capsule,delayed release (Probiotic Pearls Complete) ascorbate calcium (vitamin C) 500 500 mg PO DAILY 07/27/21 04/16/22 History mg tablet famotidine 20 mg tablet 20 mg PO BID 11/14/21 04/16/22 History cholecalciferol (vitamin D3) 25 25 mcg PO DAILY 02/14/22 04/16/22 History mcg (1,000 unit) capsule mycophenolate mofetil 500 mg 500 mg PO Q12H #60 tabs 02/15/22 04/16/22 Rx tablet (CellCept) albuterol sulfate 90 mcg/actuation 1 - 2 inh inhalation Q4-6H PRN 02/21/22 04/16/22 Rx aerosol inhaler shortness of breath or wheezing #8.5 grams budesonide 3 mg 9 mg PO QAM 04/05/22 04/05/22 History capsule,delayed,extended release coenzyme [id number] E 100 mg-100 1 cap PO EVERY OTHER DAY 04/05/22 04/16/22 History unit capsule cyanocobalamin (vitamin B-12) 1,000 mcg PO DAILY 04/05/22 04/16/22 History 1,000 mcg tablet omega-3 fatty acids 1,000 mg PO DAILY 04/05/22 04/16/22 History sumatriptan succinate 50 mg tablet See Rx Instructions .Route 04/05/22 04/16/22 History .COMPLEX PRN Headache atorvastatin 10 mg tablet 10 mg PO QHS #90 tabs 04/15/22 Rx lisinopril 20 mg tablet 20 mg PO HS #90 tabs 04/15/22 Rx Laboratory Tests 04/16/22 11:44 Sodium 130 mmol/L L mmol/L (137-145) Patient hx anesthesia problems: none Family hx anesthesia problems: none Results Review: All pre-operative results and documents have been reviewed as part of the pre-operative evaluation. FORMERLY [facility], [facility] Past Medical History Medical History (Updated 04/15/22 @ 21:34 by Edmond Rodriguez MD) Anxiety Chronic ankle pain, bilateral Chronic interstitial lung disease Colitis Depression Dyslipidemia Essential (primary) hypertension Headache, migraine Hypomagnesemia Hyponatremia noted 2012 Intractable migraine without aura and without status migrainosus Large hiatal hernia Lichen planus Lumbar spondylosis severe noted on CT scan 11/29/2019 Lupus (systemic lupus erythematosus) Paralysis of left vocal cord Scar tissue both eye-repair in 2017 Ulcerative colitis Vocal cord paralysis syndrome Surgical History Surgical History H/O: hysterectomy (~05/1985) History of 2 sections History of appendectomy History of cataract extraction 12/18/2014 and 2017 History of D&C Family History Family History Sibling , 2019 with esophageal cancer Esophageal cancer, Onset Age: 83 October 2019 Daughter Lupus daughter has lupus, on cellcept Father Psoria
--- NOTE | 2022-04-16 13:25 | WPDHPUPDATE1 ---
History and Physical Update Update Date/Time: 04/16/22 13:25 History and Physical has been reviewed, including an updated exam of the patient. There are NO changes in the patient's condition. Risks, benefits, and alternatives have been discussed and questions answered. Patient agrees to proceed with procedure.
[2022-04-16] MEDS: ceFAZolin 2 GM/D5W 50 ML 2 GM/50 ML BAG IVPB (13:32)
[2022-04-16] MEDS: BUPIVACAINE/EPINEPHRINE 0.5% 10 ML VIAL 30 ML INFILTRATE (14:58)
--- NOTE | 2022-04-16 15:11 | W.PM.PROC2 ---
Procedure Note - Detailed Date of Procedure 04/16/22 Pre-op Diagnosis Chronic Cholecystitis with Cholelithiasis Post-op Diagnosis Same Procedure Performed Laproscopic Cholecystectomy Surgeon Edmond Rodriguez MD Planting Supervisor Alli [email or web address].OR kindergarten teacher assistant Anesthesia General Indications Patient has had intermittent upper abdominal pain for a number of months and had an ultrasound showing small gallstones. (See details in H&P) Findings Patient had a quite enlarged but soft thin walled gallbladder. Upon removal very small stones could be felt in the dependent part of the gallbladder. Patient had a branched cystic artery with an anterior posterior branch. Adhesions could be seen in the infraumbilica areal underneath the midline. there was no right inguinal hernia. The left groin area could not be seen from the inside. Description of Procedure Patient was seen preoperatively in the holding area and risks, benefits and alternatives confirmed. Patient was taken to the operating room and general anesthesia was induced. A time out was then preformed with the surgery team confirming patient and site of surgery. The abdomen was prepped and draped in the usual sterile fashion. Incision was made just below the umbilicus with an 11 blade knife. I placed 2 stay sutures of O- Vicryl on either side of the mid-line fascia beneath the umbilicus and was then able to slide in the Alex cannula through the fascial defect into the peritoneum. First under low flow and then under high flow the abdomen was insufflated with carbon dioxide never exceeding a pressure of 14. Three 5 mm trocars were then introduced under direct vision. The following trocars were introduced under direct vision: a 5 mm in the epigastrium and two 5 mm trocars along the right costal margin laterally in the subcostal area. There were not any adhesions to the underside of the gallbladder. I then carefully used the L-shaped cautery and the [place] dissector to dissect out the triangle of [place]. I then was able to dissect out both the cystic duct and cystic artery and identify a window of safety. The gall bladder was grasped and the cystic duct and artery were dissected free and clipped with an 5 mm endo-clip group home paraprofessional. The cystic duct and artery were clipped with use of 2 clips on the patient's side 1 on the gallbladder side utilizing a 5 mm endoclip-group home paraprofessional. (for this pt I also put one on the deep posterior branch of the cystic artery behind the GB). The cystic duct was then transected. The cystic artery was also transected at this point. The gall bladder was removed using electrocautery and then removed from the abdomen using a large 10 mm grasper via the umbilical incision. The trocars were removed visualizing hemostasis and the remaining gas evacuated. The large trocar site at the umbilicus was closed with use of the 2 stay sutures of 0 Vicryl mentioned above and also figure of 8 O-Vicryl suture and a separate # 1 Vicryl [id number] suture because the opening seemed to be fairly patulous when evaluated at the end of the surgery.. The 2 stay sutures mentioned above on either side of the fascia were also tied together to help approximate this midline fascia. Further local anesthetic was placed into each incision for postop pain control. The skin incisions were closed with subcuticular suture of 4-0 Monocryl. Surgical glue then was applied to all the incisions. Patient tolerated the procedure well was taken to the recovery room in good condition. Implants none Estimated Blood Loss 20 Drains No Packing No Pathology Yes (Gallbladder) Complications No immediate complications Condition Stable Disposition PACU [facility] Billing Surgery - Charge Forward: Surgery Billing (Laparoscopic cholecystectomy)
[2022-04-16] MEDS: ONDANSETRON INJ 4 MG/2 ML VIAL IV PUSH (15:26)
== END 2022-04-16 17:25 | disposition home or self-care (01) ==
PROVIDERS: PCP Family Medicine; Visit Provider Surgery
PROC: 0FT44ZZ Resection of Gallbladder, Percutaneous Endoscopic Approach (ICD-10-PCS; CPT 47562; principal; 2022-04-16 13:00)
DX: K80.10 Calculus of gallbladder with chronic cholecystitis without obstruction (principal); I10 Essential (primary) hypertension; E78.5 Hyperlipidemia, unspecified; M32.9 Systemic lupus erythematosus, unspecified; K51.90 Ulcerative colitis, unspecified, without complications; I27.20 Pulmonary hypertension, unspecified; J84.9 Interstitial pulmonary disease, unspecified; K44.9 Diaphragmatic hernia without obstruction or gangrene; F41.9 Anxiety disorder, unspecified; F32.A Depression, unspecified; M47.816 Spondylosis without myelopathy or radiculopathy, lumbar region; Z79.51 Long term (current) use of inhaled steroids
CPT/HCPCS: 47562; 36415; 80053; 82150; 82248; 83690; 84295; 85025; 88304; 93005; A9270; J0690; J1100; J1885; J2405; J2704; J2710; J3010; J7120

== ENCOUNTER 2022-05-28 12:21 | Outpatient (CLI) | payer MEDICARE, MEDICAID, SELFPAY ==
--- NOTE | 2022-05-30 14:43 | WPDPFTINT ---
PFT Procedure Performed PFT Procedure Performed Spirometry with Pre/Post Bronchodilator Plethysmography (Lung Vol) Diffusing Cap (DLCO) Flow Vol Loop PFT Interpretation Lung volumes were measured with the body plethysmography method. The diminished lung volumes are indicative of restrictive respiratory disease. Spirometry showed mild reduction in FVC and FEV1 and a normal FEV1 to FVC ratio of 83%, also consistent with restrictive respiratory disease. Following administration of a bronchodilator there was no significant increase in expiratory flow rates. Lung diffusion capacity is moderately reduced at 51% predicted. The flow volume loop is unremarkable. In comparison to previous study done in 2021, the post bronchodilator FEV1 and FVC are essentially unchanged. Lung diffusion capacity is also unchanged. Impression: Moderate restrictive respiratory disease. Moderately reduced lung diffusion capacity.
== END 2022-05-28 12:22 | disposition home or self-care (01) ==
LOC: ANHPFT 12:23
PROVIDERS: PCP Family Medicine; Visit Provider Internal Medicine Critical Care Medicine
DX: J84.9 Interstitial pulmonary disease, unspecified (principal); R94.2 Abnormal results of pulmonary function studies
CPT/HCPCS: 94060; 94726; 94729

== ENCOUNTER 2022-05-28 12:24 | Outpatient (CLI) | payer MEDICARE, MEDICAID, SELFPAY ==
--- NOTE | ~2022-05-28 | CT_ITS ---
EXAMINATION: CT chest high resolution wo co DATE: 05/28/2022 13:46 INDICATION: ILD TECHNIQUE: Computed tomography (CT) of the chest was performed without intravenous contrast. Addition al 3D reconstructions utilizing coronal maximum intensity projection (MIP) were performed. Automated exposure control and iterative reconstruction technique were employed. The dose-length product was 13 0.10 mGy-cm. COMPARISON: 11/17/2021 and 02/02/2021 FINDINGS: No significant change in small amounts with extensive bilateral peripheral prominent irregular septal thickening and groundglass opacities. There are few scattered tiny peripheral lucencies this equival ent for early honeycombing versus mild emphysema. 6 mm nodule at the lateral basilar left lower lobe unchanged since 02/02/2021. No pneumonia or other new airspace opacities, pulmonary edema or pleural e ffusion. Heart size is normal. Atherosclerotic coronary artery calcific location. No pericardial effu shyam. Thoracic aorta is normal in caliber with small amount of scattered atherosclerotic calcificatio n. No pathologically enlarged thoracic lymphadenopathy. Large sliding-type hiatal hernia. Interval c holecystectomy surgical clips at the gallbladder fossa. Mild thoracic dextroscoliosis with severe spo ndylosis. IMPRESSION: 1. No significant change in chronic interstitial lung disease which could represent either nonspecifi c interstitial pneumonia (NSIP) with mild emphysema or usual interstitial pneumonia (UIP) with mild e swati honeycombing. 2. Large sliding-type hiatal hernia. Reviewed, dictated and finalized at location B. TO DOOR LEAD GENERATION IMPRESSION: 1. No significant change in chronic interstitial lung disease which could repre sent either nonspecific interstitial pneumonia (NSIP) with mild emphysema or us ual interstitial pneumonia (UIP) with mild early honeycombing. 2. Large sliding-type hiatal hernia.
== END 2022-05-28 12:25 | disposition home or self-care (01) ==
LOC: ANHIMG 12:24
PROVIDERS: PCP Family Medicine; Visit Provider Internal Medicine Critical Care Medicine
DX: J84.9 Interstitial pulmonary disease, unspecified (principal); K44.9 Diaphragmatic hernia without obstruction or gangrene
CPT/HCPCS: 71250; 94060; 94726; 94729

== ENCOUNTER 2022-12-14 17:46 | Emergency (ER) | payer MEDICARE, MEDICAID, SELFPAY ==
--- NOTE | ~2022-12-14 | XR_ITS ---
EXAM: XR wrist LT min 3V DATE: 12/14/2022 18:56 HISTORY: left ulnar wrist pain ? etiology . COMPARISON: 01/20/2021. FINDINGS: Normal mineralization. No fracture or dislocation. No lytic or blastic lesion. Moderate de generative changes with chondrocalcinosis. No erosion or periosteal change. Soft tissues within anson l limits. IMPRESSION: No acute osseous finding in the left wrist. Moderate polyarticular left wrist osteoarthri tis. Reviewed, dictated and finalized at location K. IMPRESSION: No acute osseous finding in the left wrist. Moderate polyarticular left wrist osteoarthritis.
[2022-12-14 17:58] VITALS: BP 171/107; PULSE 100; RESP 16; TEMP 37.1; O2SAT 99
--- NOTE | 2022-12-14 18:42 | ED.GENADULT ---
HPI - General Adult General Chief complaint: Extremity Problem,Nontraumatic Stated complaint: left wrist painful Source: patient Mode of arrival: ambulatory Limitations: no limitations History of Present Illness HPI narrative: 77 y/o female with hx RA presented for c/o Left forearm pain with redness and swelling for 4 days. Denies known injury. Patient can tolerate flexion and extension, but reports pain to the wrist with twisting movements. Denies numbness, tingling, weakness of the hand. Took 600 mg of ibuprofen this morning without any relief. Related Data Home Medications Medication Instructions Recorded Confirmed calcium carbonate 600 mg calcium 600 mg PO DAILY 05/02/21 12/14/22 (1,500 mg) tablet (Calcium) multivitamin (Multiple Vitamins 1 tablet PO DAILY 05/02/21 12/14/22 tablet) lactobacillus combo no.13 1 1 cap PO DAILY 07/07/21 12/14/22 billion cell capsule,delayed release (Probiotic Pearls Complete) ascorbate calcium (vitamin C) 500 500 mg PO DAILY 07/27/21 12/14/22 mg tablet famotidine 20 mg tablet 20 mg PO BID 11/14/21 12/14/22 cholecalciferol (vitamin D3) 25 25 mcg PO DAILY 02/14/22 12/14/22 mcg (1,000 unit) capsule coenzyme [id number] E 100 mg-100 1 cap PO EVERY OTHER DAY 04/05/22 12/14/22 unit capsule omega-3 fatty acids 1,000 mg PO DAILY 04/05/22 12/14/22 cyanocobalamin (vitamin B-12) 500 mcg PO DAILY 07/03/22 12/14/22 1,000 mcg tablet Allergies Allergy/AdvReac Type Severity Reaction Status Date / Time erythromycin base Allergy Intermediate hot Verified 12/14/22 17:53 flashes, RASH Sulfa (Sulfonamide Allergy Intermediate Itching Verified 12/14/22 17:53 Antibiotics) nickel Allergy REDNESS, Verified 12/14/22 17:53 IRRITATION, RASH Review of Systems Review of Systems: CONSTITUTIONAL: Denies body aches, fever, chills EYES: Denies visual changes ENT: Denies rhinorrhea, congestion CARDIOVASCULAR: Denies chest pain, palpitations, or edema. RESPIRATORY: Denies cough or dyspnea. GASTROINTESTINAL: Denies abdominal pain, nausea, vomiting, or diarrhea. SKIN: Denies rash, itching, or wounds. MUSCULOSKELETAL: Reports left wrist pain Denies back pain, or myalgia. NEUROLOGIC: Denies headache, numbness, tingling, or weakness. All systems reviewed & are unremarkable except as noted in HPI and below PMFSH Past Medical History Medical History Anxiety CCC (chronic calculous cholecystitis) Chronic ankle pain, bilateral Chronic interstitial lung disease Colitis Depression Dyslipidemia Essential (primary) hypertension Headache, migraine Hypomagnesemia Hyponatremia noted 2012 Intractable migraine without aura and without status migrainosus Large hiatal hernia Lichen planus Lumbar spondylosis severe noted on CT scan 11/29/2019 Lupus (systemic lupus erythematosus) Paralysis of left vocal cord Scar tissue both eye-repair in 2017 Ulcerative colitis Vocal cord paralysis syndrome Surgical History Surgical History H/O: hysterectomy (~05/1985) History of 2 sections History of appendectomy History of cataract extraction 12/18/2014 and 2016 History of D&C History of laparoscopic cholecystectomy 04/16/2022- laparoscopic cholecystectomy Family History Family History Sibling , 2019 with esophageal cancer Esophageal cancer, Onset Age: 83 October 2019 Daughter Lupus daughter has lupus, on cellcept Father Psoriasis father has psoriasis Other Family history of coronary artery disease Family history of lung cancer Family history of throat cancer Hypertension Social History Social History Social History: Primary care physician: Dr. Rustam Ulloa Code status:
== END 2022-12-14 20:00 | disposition home or self-care (01) ==
PROVIDERS: Emergency Provider Nurse Practitioner Family; PCP Family Medicine
DX: M25.532 Pain in left wrist (principal); E78.5 Hyperlipidemia, unspecified; I10 Essential (primary) hypertension; M32.9 Systemic lupus erythematosus, unspecified; J84.9 Interstitial pulmonary disease, unspecified; F41.9 Anxiety disorder, unspecified; F32.A Depression, unspecified
CPT/HCPCS: 73110; 99213; G0463

== ENCOUNTER 2023-01-24 08:08 | Outpatient (CLI) | payer MEDICARE, MEDICAID, SELFPAY ==
--- NOTE | ~2023-01-24 | CT_ITS ---
EXAMINATION: CT chest high resolution wo nm DATE: 01/24/2023 08:32 INDICATION: Interstitial pulmonary disease TECHNIQUE: Computed tomography (CT) of the chest was performed without intravenous contrast. The dose -length product (DLP) was 127.01 mGy-cm. Automated exposure control and iterative reconstruction tech [employer] were employed. COMPARISON: 05/28/2022 FINDINGS: Again seen are widespread subpleural groundglass and reticular opacities in the mid and low er lung zone distribution without significant change. No definite honeycombing is identified. No pleu ral effusion or pneumothorax. There is a stable 5 mm nodule in the left lower lobe. There is a large sliding hiatal hernia. No pathologically enlarged thoracic lymph nodes are identified. The heart size is normal. There is calcified coronary artery atherosclerosis. There is severe thoracic spondylosis. There are changes of cholecystectomy. IMPRESSION: 1. Stable chronic interstitial lung disease in a pattern of nonspecific interstitial pneumonia (NSIP) . Reviewed, dictated and finalized at location L. IMPRESSION: 1. Stable chronic interstitial lung disease in a pattern of nonspecific interst itial pneumonia (NSIP).
== END 2023-01-24 08:09 | disposition home or self-care (01) ==
PROVIDERS: PCP Family Medicine; Visit Provider Internal Medicine
DX: J84.9 Interstitial pulmonary disease, unspecified (principal)
CPT/HCPCS: 71250

== ENCOUNTER 2023-02-11 12:33 | Outpatient (CLI) | payer MEDICARE, MEDICAID, SELFPAY ==
[2023-02-11 12:45] VITALS: PULSE 84; O2SAT 93
[2023-02-11 12:50] VITALS: PULSE 90; O2SAT 87
[2023-02-11 12:55] VITALS: PULSE 90; O2SAT 94
[2023-02-11 13:10] VITALS: PULSE 78; O2SAT 94
--- NOTE | 2023-02-11 13:50 | HOMEO2EVAL ---
Evaluation was performed at [facility] Home Oxygen Evaluation RC: Home Oxygen (O2) Evaluation Start: 02/11/23 13:46 Freq: Status: Active Protocol: RPE Activity Type Activity Date Activity User E-sign Co-sign Detail Recorded Client Recorded Date Recorded By Document 02/11/23 12:45 PK [email or web address] 02/11/23 13:50 PK Document 02/11/23 12:50 PK [email or web address] 02/11/23 13:50 PK Document 02/11/23 12:55 PK [email or web address] 02/11/23 13:50 PK Document 02/11/23 13:10 [facility] [email or web address] 02/11/23 13:50 PK 02/11/23 02/11/23 02/11/23 12:45 12:50 12:55 Home O2 Evaluation [Oxygen] -Test Phase Resting Exercise Exercise -Oxygen Delivery Room Air Room Air Nasal Cannula -Oxygen Flow Rate (L/min) 1 [Pulse Oximetry] -Pulse Oximetry (90-100 %) 93 87 L 94 [Pulse Rate] -Pulse Rate (60-100 beats/min) 84 90 90 [Evaluation] -Activity Tolerance Good [Charges] -Treatment Charges O2 Evaluation - Outpatient 02/11/23 13:10 Home O2 Evaluation [Oxygen] -Test Phase Resting -Oxygen Delivery Room Air -Oxygen Flow Rate (L/min) [Pulse Oximetry] -Pulse Oximetry (90-100 %) 94 [Pulse Rate] -Pulse Rate (60-100 beats/min) 78 [Evaluation] -Activity Tolerance [Charges] -Treatment Charges
--- NOTE | 2023-02-14 09:05 | WPDPFTINT ---
PFT Procedure Performed PFT Procedure Performed Spirometry with Pre/Post Bronchodilator Plethysmography (Lung Vol) Diffusing Cap (DLCO) Flow Vol Loop PFT Interpretation This is a pulmonary function test with pre and post-bronchodilator spirometry, plethysmography and diffusing capacity. The test was performed and results interpreted in accordance with the 2019 and 2005 ATS/ERS Task Force guidelines respectively using the Global Lung Function Initiative-2012 reference equations. Patient demonstrated good effort and cooperation. Reproducibility criteria were met. The quality of the pre bronchodilator spirometry maneuver was Grade A and post bronchodilator spirometry maneuver was Grade A. Findings: Spirometry: The contour the inspiratory and expiratory flow tracing are normal. The pre bronchodilator FVC is 1.55 L, 63% predicted. The pre bronchodilator FEV1 is 1.26 L, 67% predicted. The pre bronchodilator FEV1: FVC ratio is 81%. The post bronchodilator FVC is 1.58 L, representing a 2% increase. The post bronchodilator FEV1 is 1.33 L, representing a 5% increase. The post bronchodilator FEV1: FVC ratio is 84%. Plethysmography: The total lung capacity is 2.73 L, 58% predicted. The functional residual capacity is 1.34 L, 49% predicted. The residual volume is 1.10 L, 50% predicted. Diffusing capacity: The diffusing capacity unadjusted for hemoglobin and carboxyhemoglobin is 8.8, 46% predicted. The diffusing capacity adjusted for alveolar volume is 4.35, 101% predicted. Impression: There is a moderate restrictive ventilatory abnormality. The spirometry is normal without evidence of an obstructive abnormality. There is no significant improvement after inhaling a single dose of albuterol. The diffusing capacity unadjusted for hemoglobin and carboxyhemoglobin is moderately decreased and normalizes when adjusted for alveolar volume. There are no prior studies for comparison
== END 2023-02-11 12:34 | disposition home or self-care (01) ==
LOC: ANHPFT 12:33
PROVIDERS: PCP Family Medicine; Visit Provider Internal Medicine Critical Care Medicine
DX: J84.9 Interstitial pulmonary disease, unspecified (principal); R94.2 Abnormal results of pulmonary function studies
CPT/HCPCS: 94060; 94618; 94726; 94729

== ENCOUNTER 2023-03-23 08:06 | Emergency (ER) | payer MEDICARE, MEDICAID, SELFPAY ==
--- NOTE | 2023-03-23 08:09 | ED.GENADULT ---
HPI - General Adult General Chief complaint: Eye Problems Stated complaint: left eye irritated Time Seen by Provider: 03/23/23 08:09 Source: patient Mode of arrival: ambulatory Limitations: no limitations History of Present Illness HPI narrative: 78-year-old female presents to urgent care today with left eye irritation. Patient reports that she woke up last night around 1:00 a.m. with pain in her eye put some with dry eye drops in that she was prescribed from her physician but that did not help. She tried to go back to sleep but she could not because the irritation was so bad. Patient has had watery drainage from the eye. Denies getting foreign body stuck in the eye. Has not rub the eye. And is having swelling of the left lower lid. Patient normally wears glasses by denied any specific vision changes at this time. Related Data Home Medications Medication Instructions Recorded Confirmed calcium carbonate 600 mg calcium 600 mg PO DAILY 05/02/21 03/23/23 (1,500 mg) tablet (Calcium) multivitamin (Multiple Vitamins 1 tablet PO DAILY 05/02/21 03/23/23 tablet) lactobacillus combo no.13 1 1 cap PO DAILY 07/07/21 03/23/23 billion cell capsule,delayed release (Probiotic Pearls Complete) ascorbate calcium (vitamin C) 500 500 mg PO DAILY 07/27/21 03/23/23 mg tablet famotidine 20 mg tablet 20 mg PO BID 11/14/21 03/23/23 cholecalciferol (vitamin D3) 25 25 mcg PO DAILY 02/14/22 03/23/23 mcg (1,000 unit) capsule coenzyme [id number] E 100 mg-100 1 cap PO EVERY OTHER DAY 04/05/22 03/23/23 unit capsule omega-3 fatty acids 1,000 mg PO DAILY 04/05/22 03/23/23 cyanocobalamin (vitamin B-12) 500 mcg PO DAILY 07/03/22 03/23/23 1,000 mcg tablet Allergies Allergy/AdvReac Type Severity Reaction Status Date / Time erythromycin base Allergy Intermediate hot Verified 03/23/23 08:08 flashes, RASH nickel Allergy Intermediate REDNESS, Verified 03/23/23 08:08 IRRITATION, RASH Sulfa (Sulfonamide Allergy Intermediate Itching Verified 03/23/23 08:08 Antibiotics) escitalopram [From Lexapro] AdvReac Intermediate Abdominal Verified 03/23/23 08:08 Pain Review of Systems Review of Systems: CONSTITUTIONAL: Denies fever, chills, or sweats. EYES: Positive visual changes of the left eye-slight blurry vision, redness, and watery discharge. Right eye is without drainage, pain, vision changes, and redness. ENT: Denies rhinorrhea, congestion, sore throat, or otalgia. CARDIOVASCULAR: Denies chest pain, palpitations, or edema. RESPIRATORY: Denies cough or dyspnea. GASTROINTESTINAL: Denies abdominal pain, nausea, vomiting, or diarrhea. GENITOURINARY: Denies dysuria or hematuria. SKIN: Denies rash or itching. MUSCULOSKELETAL: Denies back pain, joint pain, or myalgia. NEUROLOGIC: Denies headache, numbness, or weakness. PSYCHIATRIC: Denies anxiety or depression. [facility], LAT[facility] Past Medical History Medical History Anxiety CCC (chronic calculous cholecystitis) Chronic ankle pain, bilateral Chronic interstitial lung disease Colitis Depression Dyslipidemia Essential (primary) hypertension Headache, migraine Hypomagnesemia Hyponatremia noted 2012 Intractable migraine without aura and without status migrainosus Large hiatal hernia Lichen planus Lumbar spondylosis severe noted on CT scan 11/29/2019 Lupus (systemic lupus erythematosus) Paralysis of left vocal cord Scar tissue both eye-repair in 2017 Ulcerative colitis Vocal cord paralysis syndrome Wrist pain, left Surgical History Surgical History H/O: hysterectomy (~05/1985) History of 2 sections History of appendectomy History of cataract extraction 12/18/2014 and 2016 History of D&C History of laparoscopic cholecystectomy 04/16/2022- laparoscopic cholecystectomy Family History Family History (Reviewed 03/23/23 @ 08:11 by Lia Finney
[2023-03-23 08:18] VITALS: BP 163/79; PULSE 85; RESP 16; TEMP 36.8; O2SAT 96
== END 2023-03-23 09:04 | disposition home or self-care (01) ==
PROVIDERS: Emergency Provider Nurse Practitioner Family; PCP Family Medicine
DX: H00.025 Hordeolum internum left lower eyelid (principal); M32.9 Systemic lupus erythematosus, unspecified; E78.5 Hyperlipidemia, unspecified; I10 Essential (primary) hypertension; M47.816 Spondylosis without myelopathy or radiculopathy, lumbar region
CPT/HCPCS: 99212; G0463

== ENCOUNTER 2023-04-01 07:35 | Outpatient (CLI) | payer MEDICARE, MEDICAID, SELFPAY ==
--- NOTE | 2023-04-01 14:42 | WPDSIXMINUTE ---
Six Minute Walk Procedure Procedure Performed Pulmonary Stress Test (6 min walk) Six Minute Walk Six Minute Walk: This is a 6 minute walk test. The test was performed and interpreted in accordance with the 2014 ERS/ATS task force guidelines. Findings: The patient's resting room air oxygen saturation measured by pulse oximetry was 94% and heart rate was 75 bpm. Patient ambulated for 213 meters and oxygen saturation remained 90 to 94%. Heart rate at the end of the study was 107 bpm. The patient did not qualify for supplemental oxygen at rest or with ambulation. There are no prior studies for comparison.
== END 2023-04-01 07:36 | disposition home or self-care (01) ==
LOC: ANHPFT 07:37
PROVIDERS: PCP Family Medicine; Visit Provider Internal Medicine Critical Care Medicine
DX: J84.9 Interstitial pulmonary disease, unspecified (principal)
CPT/HCPCS: 94618

== ENCOUNTER 2023-06-28 09:57 | Outpatient (CLI) | payer MEDICARE, MEDICAID, SELFPAY ==
[2023-06-28 19:47] LABS: Basophils Absolute Auto 0.1 K/mm3 (0.0-0.1); Basophils Percent Auto 0.7 % (0.2-1.2); Eosinophils Absolute Auto 0.2 K/mm3 (0-0.3); Eosinophils Percent Auto 1.8 % (0-4.4); Hematocrit 42.7 % (37.0-47.0); Hemoglobin 13.9 g/dL (12.0-15.0); Immature Granulocyte Absolute 0.03 K/mm3 (0.00-0.031); Immature Granulocyte Percent A 0.2 % (0-0.5); Lymphocytes Percent Auto 20.4 % (18.3-44.2); Mean Corpuscular HGB Conc 32.6 g/dl (32-36); Mean Corpuscular Hemoglobin 28.3 pg (26-34); Mean Corpuscular Volume 86.8 fl (80-100); Mean Platelet Volume 9.7 fl (7.4-10.4); Monocytes Absolute Auto 1.1 K/mm3 (0.1-0.6); Neutrophils Absolute Auto 8.3 K/mm3 (1.3-6.7); Neutrophils Percent Auto 67.9 % (45.5-73.1); Platelet Count Result 345 k/mm3 (150-375); Red Blood Count 4.92 M/mm3 (4.2-5.4); Red Cell Distribution Width 14.1 % (11.5-14.5); White Blood Count 12.3 K/mm3 (4.5-10.0)
[2023-06-28 20:52] LABS: Hemoglobin A1C 5.4 % (<5.7)
[2023-06-28 21:31] LABS: Vitamin B12 > 1000.0 pg/mL (239-931)
[2023-06-28 22:02] LABS: Alanine Aminotransferase 16 U/L (6-35); Albumin Level 4.5 g/dL (3.5-5.1); Alkaline Phosphatase 94 U/L (38-126); Anion Gap 8 mmol/L (8-16); Aspartate Amino Transferase 41 U/L (14-36); Bilirubin,Total 0.5 mg/dL (0.2-1.3); Blood Urea Nitrogen 23 mg/dL (7-17); Calcium 10.1 mg/dL (8.4-10.2); Carbon Dioxide 29 mmol/L (22-30); Chloride 94 mmol/L (98-107); Cholesterol 194 mg/dL (0-200); Estimated Glomerular Filt Rate > 60; Glucose 81 mg/dL (65-110); HDL Direct 58 mg/dL; Potassium 4.4 mmol/L (3.4-5.0); Sodium 131 mmol/L (137-145); Triglycerides 117 mg/dL (<150)
[2023-06-28 22:12] LABS: LDL Cholesterol Direct 93 mg/dL
== END 2023-06-28 09:58 | disposition home or self-care (01) ==
LOC: ANHGOSHLAB 09:58
PROVIDERS: PCP Family Medicine; Visit Provider Nurse Practitioner Family
DX: E78.5 Hyperlipidemia, unspecified (principal); I10 Essential (primary) hypertension; M32.9 Systemic lupus erythematosus, unspecified; Z13.29 Encounter for screening for other suspected endocrine disorder; R09.02 Hypoxemia; G43.019 Migraine without aura, intractable, without status migrainosus; R73.03 Prediabetes; E53.8 Deficiency of other specified B group vitamins
CPT/HCPCS: 36415; 80053; 80061; 82607; 83036; 84443; 85025

== ENCOUNTER 2024-01-27 10:20 | Outpatient (CLI) | payer MEDICARE, MEDICAID, SELFPAY ==
--- NOTE | ~2024-01-27 | US_ITS ---
EXAMINATION: US soft tissue head and neck DATE: 01/27/2024 11:01 INDICATION: Pulsatile swelling at the right anterior neck TECHNIQUE: Multiple grayscale and Doppler ultrasound images of the region of concern at the anterior right neck were obtained. COMPARISON: None FINDINGS: The right common carotid artery is tortuous with the anterior wall of loop of the artery extending to within 5 mm the skin surface at the site of the palpable abnormality. This appears unchanged when co mpared with CT dated 05/11/2020. Minimal amount of nonhemodynamically significant atherosclerotic plaqu e in the visualized right common carotid artery. No or pathologically enlarged lymphadenopathy or ot her abnormal masses or fluid collections identified. IMPRESSION: 1. The palpable abnormality of concern corresponds to a relatively superficial extension of a loop of the tortuous right common carotid artery. Reviewed, dictated and finalized at location A.
== END 2024-01-27 10:21 | disposition home or self-care (01) ==
LOC: ANHIMG 10:21
PROVIDERS: PCP Family Medicine; Visit Provider Family Medicine
DX: R22.1 Localized swelling, mass and lump, neck (principal); I77.1 Stricture of artery
CPT/HCPCS: 76536

== ENCOUNTER 2024-07-10 07:11 | Outpatient (CLI) | payer MEDICARE, MEDICAID, SELFPAY ==
--- NOTE | ~2024-07-10 | DEXA_ITS ---
Bone Density Report Name: ARPITA BOLAÑOS Age: 79 Sex: Female Ethnicity: White Date of : 1945 Indication: postmenopausal; screening for osteoporosis; height loss; hysterectomy; Referring Provider: LYNDON DENNEY Study: Bone densitometry was performed. Exam Date: July 10, 2024 Accession number: [id number] Bone Density: Region BMD T-score Z-score Classification AP Spine(L1-L4) 0.984 -0.6 2.0 Normal Femoral Neck (Left) 0.529 -2.9 -0.7 Osteoporosis Total Hip (Left) 0.731 -1.7 0.2 Osteopenia Femoral Neck (Right) 0.576 -2.5 -0.3 Osteoporosis Total Hip (Right) 0.758 -1.5 0.4 Osteopenia Total Hip Mean 0.745 -1.6 0.3 Osteopenia World Health Organization criteria for BMD impression classify patients as: Normal (T-score at or above -1.0), Osteopenia (T-score between -1.0 and -2.5), or Osteoporosis (T-score at or below -2.5). 10-year Fracture Risk: FRAX not reported because: Some T-score for Spine Total or Hip Total or Femoral Neck at or below -2.5 Clinical Information Provided by Patient: Has used the following medications: Vitamin D, Calcium Has the following medical conditions: Hysterectomy Patient maximum height was 62 Menopause Age: 41 No regular weight bearing exercise Does not regularly consume dairy products Drinks caffeinated beverages Onset of menses at age 14 Number of children 2 Impression: The patient has osteoporosis, based on the Left Femoral Neck T-score. Discussion: INCREASED RISK OF FRACTURE. BONE DENSITY IS UNDESIRABLY LOW AT ONE OR MORE SKELETAL SITES, CONSISTENT WITH POSTMENOPAUSAL OSTEOPOROSIS. This patient's lowest T-score meets the World Health Organization's (WHO) criteria for osteoporosis at one or more sites (T-score -2.5 or below). In untreated patients, the risk of osteoporotic fracture increases approximately two-fold for each 1.0 SD decrease in T-score. Low bone density is not the only risk factor for fracture; also consider factors such as patient's age, frailty or poor health, risk of falling, risk of injury, previous osteoporotic fracture, family history of osteoporosis, cigarette smoking, low body weight, etc. Not everyone with low bone mineral density has osteoporosis; osteomalacia and other metabolic bone disorders should also be considered. Patients who have osteoporosis should be evaluated for specific diseases and conditions (secondary causes) that may cause or contribute to bone loss. The [place] Association of Clinical Endocrinologists (AACE) and National Osteoporosis Foundation (NOF) recommend pharmacologic intervention for all postmenopausal women whose T-score is in this range. The patient should follow a healthful lifestyle (good nutrition with adequate calcium and vitamin D, and appropriate weight-bearing exercise). Follow-Up: Consider a repeat BMD and Vertebral Fracture Assessment (VFA) exam in 2 years or sooner if medically necessary, to reassess this patient's status. Reported by: EMRE on 07/10/2024 7:51:00 AM. Reviewed, dictated and finalized at location A. SAMI
--- OUTSIDE RECORDS SUMMARY | 2024-07-10 07:16 | XMS_ITS | Encounter Summary ---
Author Organization [facility] Address [facility] [place] [address] Care Team Providers Care Program Attendant Name Role Phone Rustam Ulloa MD Primary Care Provider Encounter Details Date Type Department Care Team (Late st Contact Info) Description 02/23/2020 Prep for Procedure [facility] [place], [place] [id number] Hafsa Hernadez MD [address] [facility] [address] [place] [address] Social History Tobacco Use Types Packs/Day Years Used Date Smoking Tobacco: Never Smokeless Tobacco: Never Alcohol Use Standard Drinks/Week Comments Never 0 (1 standard drink = 0.6 oz pur e alcohol) AUDIT-C Answer Date Recorded Q1: How often do you have a drink containing alc ohol? Never 02/19/2020 Average Number of Drinks Not on file 020 Frequency of Binge Drinking Not on file 02/03 Comments Unknown Sex and Gender Information Value Date Recorded Sex Assigned at Not on file Legal Sex Female 8:25 AM CDT Gender Identity Not on file Sexual Orientation Not on file COVID-19 Exposure Response Date Recorded In the last month, have you been in contact with someone who was confirmed or suspected to have Coronavirus / COVID-19? No / Unsure 02/26/2020 8:37 AM CDT documented as of this encounter Plan of Treatment Not on file documented as of this encounter Results * PRE-SURGICAL/PRE-PROCEDURE CORONAVIRUS (COVID 19) (02/23/2020 10:19 AM CDT) CORONAVIRUS SARS COV 2 PCR (RESP) NOT DETECTED NOT DETECTED 02/24/2020 11:15 AM [facility] Comment: A Not Detected (negative) test result for this test means that SARS- CoV-2 RNA was not present in the specimen above the limit of detection. A negative result does not rule out the possibility of COVID-19 and should not be used as the sole basis for treatment or patient management decisions. If COVID-19 is still suspected, based on exposure history together with other clinical findings, re-testing should be considered in consultation with public health authorities. Laboratory test results should always be considered in the context of clinical observations and epidemiological data in making a final diagnosis and patient management decisions. Please review the Fact Sheets and FDA authorized labeling available for health care providers and patients using the following websites: [email or web address]/home/Covid-19/HCP/[facility]/fact- sheet.html https://[email or web address]/home/Covid-19/Patients/ [facility]/fact-sheet.html This test has been authorized by the FDA under an Emergency Use Authorization (EUA) for use by authorized laboratories. Due to the current public health emergency, [facility] is receiving a high volume of samples from a wide variety of swabs and media for COVID-19 testing. In order to serve patients during this public health crisis, samples from appropriate clinical sources are being tested. Negative test results derived from specimens received in non-commercially manufactured viral collection and transport media, or in media and sample collection kits not yet authorized by FDA for COVID-19 testing should be cautiously evaluated and the patient potentially subjected to extra precautions such as additional clinical monitoring, including collection of an additional specimen. Methodology: Nucleic Acid Amplification Test (NAAT) includes RT-PCR or TMA Additional information about COVID-19 can be found at the [facility] website: www.[employer]/Covid19. Test performed at [facility] [address] [place] [address] Director: JALEESA DILLON DO,MPH FIRST TEST NO 02/23/2020 11:33 AM T [facility] EMPLOYED IN [facility] NO 02/23/2020 11:33 AM CDT [facility] SYMPTOMATIC DEFINED BY CDC NO 02/23/2020 11:33 AM CDT [facility] DATE OF SYMPTOM ONSET NO 02/23/2020 11:40 AM CDT [facility] HOSPITALIZATION STATUS NO 02/23/2020 11:33 AM CDT [facility] PATIENT IN ICU NO 02/23/2020 11:33 AM CDT [facility] RESIDENT OF [facility] NO 02/23/2020 11:33 AM CDT [facility] NOT 02/23/2020 11:40 AM CDT [facility] PATIENT'S RACE WHITE OR 02/23/2020 11:33 AM CDT [facility] ETHNICITY NONHISPANIC 02/23/2020 11:33 AM CDT [facility] SOURCE (QST) NASOPHARYNGEAL SWAB 02/23/2020 11:33 AM CDT [facility] NASOPHARYNGEAL SWAB / Unknown 02/23/2020 10:19 AM CDT us Hafsa Hernadez MD MICROBIOLOGY - GENERAL ORDERAB LES Final Result [facility] [address] [place] [address], [facility] [id number] [place] [id number], documented in this encounter Visit Diagnoses Diagnosis Diarrhea- Primary Hoarseness Dysphonia documented in this encounter Additional Health Concerns Infection Onset Date Last Indicated Resolved Time COVID-19 Rule Out 02/23/2020 02/23/2020 02/24/2020 11:15 AM CDT documented as of this encounter Care Teams Program Attendant Relationship Specialty Start Date End Date Rustam Ulloa MD [address] [place] [address] PCP - General FAMILY PRACTICE 02/26/20 documented as of this encounter
--- OUTSIDE RECORDS SUMMARY | 2024-07-10 07:16 | XMS_ITS | Clinical Summary ---
Author Organization [facility] Address [facility] [place] [address] Care Team Providers Care Grader Tender Name Role Phone Rustam Ulloa MD Primary Care Provider Allergies Active Allergy Reactions Criticality Noted Date Comments Clarithromycin Rash Low 02/19/2020 Sulfacetamide Rash Low 02/19/2020 Medications SUMAtriptan 100 MG tablet Take 100 mg by mouth 2 (two) times daily as needed for Migraine. Take 1 tablet at onset of symptoms, may take 1 tablet 2 hours later. Max of 2 tablets in 24-hour period. Active sodium chloride 1 GM tablet Take 1 g by mouth 2 (two) times a day. Active Family History Medical History Relation Comments Lung Cancer Father Cancer Mother throat cancer Mother Relation Status Comments Father Mother Social History Tobacco Use Types Packs/Day Years [...] on file Sexual Orientation Not on file Last Filed Vital Signs Vital Sign Reading Time Taken Comments Blood Pressure 132/68 02/26/2020 11:15 AM CDT Pulse 96 02/26/2020 11:15 AM CDT Temperature 36.6 C (97.8 F) 02/26/2020 9:21 AM CDT Respiratory Rate 21 02/26/2020 11:15 AM CDT Oxygen Saturation 96% 02/26/2020 11:15 AM CDT Inhaled Oxygen Concentration - - Weight 66.2 kg (146 lb) 02/19/2020 2:36 PM CDT Height 154.9 cm (5' 1 ) 02/19/2020 2:36 PM CDT Body Mass Index 27.59 02/19/2020 2:36 PM CDT Plan of Treatment Health Maintenance Due Date Last Done Comments Hepatitis C 1965 DTaP, Tdap and Td Vaccines ( 1 - Tdap) 1966 Zoster Vaccines (1 of 2) 1997 Annual Medicare Wellness Visit 01/15/2012 Dexa Scan (General) 01/15/2012 Pneumococcal Vaccine: 65+ Ye ars (1 of 1 - PCV) 01/15/2012 RSV Immunization or 60+ Years (1 - 1-dose 75+ series) 2022 COVID-19 Vaccine ( - 2023-2 5 season) 2024 Influenza Adult (#1) 2024 Colorectal Cancer Screening Colonoscopy (10 Years) Discontinued 02/26/2020 Meningococcal B Vaccine Aged Out No l onger eligible based on patient's age to complete this topic Meningococcal Vaccine Aged Out No alicia dona eligible based on patient's age to complete this topic RSV Immunizations Under 20 Months Aged Out No longer eligible based on patient's age to complete this topic Insurance MEDIC[place] [address] Care Teams Grader Tender Relationship Specialty Start Date End Date Rustam Ulloa MD [address] [place] [address] PCP - General FAMILY PRACTICE 02/26/20
== END 2024-07-10 07:12 | disposition home or self-care (01) ==
LOC: ANHIMG 07:13
PROVIDERS: PCP Family Medicine; Visit Provider Family Medicine
DX: M85.89 Other specified disorders of bone density and structure, multiple sites (principal); Z78.0 Asymptomatic menopausal state; Z13.820 Encounter for screening for osteoporosis
CPT/HCPCS: 77080

== ENCOUNTER 2024-07-14 09:26 | Outpatient (CLI) | payer MEDICARE, MEDICAID, SELFPAY ==
--- OUTSIDE RECORDS SUMMARY | 2024-07-14 10:15 | XMS_ITS | Referral Summary ---
Author Organization [facility] at the [facility] Office Center Address [address] [place] [address] Care Team Providers Care Journeyman Tool And Die Maker Name Role Phone Rustam Ulloa MD Primary Care Provider Dusty CREWS MD, Floyd Real Unavailable [phone] Allergies Active Allergy Reactions Criticality Noted Date Comments Erythromycin Unknown 01/27/2020 Sulfa (Sulfonamide Antibiotics) Itching Low 12/04 Medications multivitamin capsule Take 1 capsule by mouth daily Active atorvastatin (LIPITOR) 10 mg tablet Take 1 tablet (10 mg total) by mouth nightly at bedtime 1 Active ascorbic acid (VITAMIN C) 500 mg tablet,chewable Take 1 tablet/chew tab (500 mg total) by mouth daily Active cyanocobalamin (Vitamin B-12) 1,000 mcg tabletIndicatio ns:Prevention of Vitamin B12 Deficiency Take 1 tablet (1,000 mcg total) by mouth daily Active cholecalciferol (VITAMIN D-3) 2000 unit capsule 1 capsule (2,000 Units total) Active vdfar-6-fev-epa -fish oil 300-1,000 mg capsule,delayed release(DR/EC) Activ e albuterol HFA (PROVENTIL HFA,VENTOLIN HFA,PROAIR HFA) 90 mcg/actuation inhaler INHALE 1 TO 2 PUFFS BY MOUTH EVERY 4 TO 6 HOURS NEEDED FOR SHORTNESS OF BREATH AND FOR WHEEZING 2 Active lisinopriL (PRINIVIL,ZESTR IL) 40 mg tablet Take 1 tablet (40 mg total) by mouth nightly at bedtime 2 Active SUMAtriptan (IMITREX) 50 mg tablet TAKE 1 TABLET BY MOUTH AT ONSET OF HEADACHE NEEDED. IF NO RELIEF MAY REPEAT DOSE IN 2 HOURS. MAX 4 TABLETS PER DAY. 2 Active coenzyme Q10 200 mg capsule Take 1 capsule (200 mg total) by mouth daily Active oxygenIndicatio ns:Dyspnea Administer 2 L/min into each nostril nightly Active mycophenolate mofetil (CELLCEPT) 500 mg tablet Take 2 tablets (1,000 mg total) by mouth 2 (two) times a day 120 tablet 4 Active azaTHIOprine (IMURAN) 50 mg tablet Take 2 tablets (100 mg total) by mouth daily 60 tablet 4 12/03/19 25 Active Active Problems Problem Noted Date Diagnosed Date ILD (interstitial lung disease) 09/27/2023 Pulmonary hypertension, unspecified 01/04/2022 Pulmonary hypertension 01/04/2022 Acute pharyngitis 09/26/2021 Pharyngeal dysphagia 04/18/2020 Vocal cord paralysis, unilateral complete 2019 Social History Tobacco Use Types Packs/Day Years Used Date Smoking Tobacco: Never Smokeless Tobacco: Never Tobacco Cessation:Counseling Given: Not Answered Alcohol Use Standard Drinks/Week Comments Never 0 (1 standard drink = 0.6 oz pur e alcohol) AUDIT-C Answer Date Recorded Q1: How often do you have a drink containing alc ohol? 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 Gender Identity Not on file Sexual Orientation Not on file Last Filed Vital Signs Vital Sign Reading Time Taken Comments Blood Pressure 148/85 09/27/2023 10:47 AM CDT Pulse 99 09/27/2023 10:47 AM CDT Temperature 36.6 C (97.8 F) 09/27/2023 10:47 AM CDT Respiratory Rate 18 09/27/2023 10:47 AM CDT Oxygen Saturation 97% 09/27/2023 10:47 AM CDT Inhaled Oxygen Concentration - - Weight 69.4 kg (153 lb) 09/27/2023 10:47 AM CDT Height 152.4 cm (5') 09/27/2023 10:47 AM CDT Body Mass Index 29.88 09/27/2023 10:47 AM CDT Plan of Treatment Not on file Medical Devices Implanted Type Area Part Time Flexible Clerk Device Identifier Shelf Expiration Date Model / Serial / Lot Bioform Medical [id number] Prolaryn Gel Waterbased Injectable Temporary Implant 1ml Vocal Latex Free - [id number] Implanted:Qty: 1 on 02/22/2021 by Floyd Montano II, MD at [facility] Left: Throat [employer] [id number] 09/23/2022 [id number] / / [id number] Insurance [employer] MEDICARE SOLUTIONS [facility] Address: [address] [address] [place] [address] MEDICARE SOLUTIONS [facility] MEDICARE SOLUTIONS [facility] Address: [address] [address] [place] [address] MEDICARE Advance Directives For more information, please contact: [phone] Documents on File Type Date Recorded Patient Linter Tender Expl anation Power of Physical Therapy Aide 02/22/2021 5:37 AM ADVANCE DIRECTIVE 06/08/2020 12:00 AM POWER OF CAD DRAFTSMAN FINANCIAL/MEDICAL * Full Code (Latest Code Status on File) Date Activated Date Inactivated Comments 02/22/2021 8:33 AM 02/22/2021 1:34 PM Care Teams Journeyman Tool And Die Maker Relationship Specialty Start Date End Date Rustam Ulloa MD PCP - General Family Practice 01/19/20 Floyd Montano II, MD Consulting Physician Otolaryngology 02/22/21
--- OUTSIDE RECORDS SUMMARY | 2024-07-14 10:15 | XMS_ITS | Clinical Summary ---
Author Organization [facility] Address [facility] [place] [address] Care Team Providers Care Asset Protection Manager Name Role Phone Rustam Ulloa MD Primary [...] this topic Insurance MEDICARE [place] [place] Care Teams Asset Protection Manager Relationship Specialty Start Date End Date Rustam Ulloa MD [address] [place] [address] PCP - General FAMILY PRACTICE 02/26/20
--- OUTSIDE RECORDS SUMMARY | 2024-07-14 10:15 | XMS_ITS | Clinical Summary ---
Author Organization [facility] at the [facility] Office Center Address [address] [place] [address] Care Team Providers Care Merchandise Worker Name Role Phone Rustam Ulloa MD Primary Care Provider Dusty CREWS MD, Floyd Real Unavailable [phone] Allergies Active Allergy Reactions Criticality Noted Date [...] capsule 1 capsule (2,000 Units total) Active spjis-2-alo-epa -fish oil 300-1,000 mg capsule,delayed release(DR/EC) Activ [...] 04/18/2020 Vocal cord paralysis, unilateral complete 2019 Surgical History Surgery Date Site/Laterality Comments APPENDECTOMY HYSTERECTOMY 05/06/1985 - 05/05/1986 SECTION, CLASSIC x 2 ESOPHAGOGASTRODUODENOSCOPY with biopsy COLONOSCOPY W/ BIOPSIES THROAT SURGERY 06/06/2020 - 07/03/2020 ENDOMETRIAL FULGURATION VOCAL CORD INJECTION Medical History Medical History Date Comments Hypertension GERD (gastroesophageal reflux disease) Hoarseness Migraine Colitis Voice disorder Hyperlipidemia Ulcerative colitis (HCC) Vocal cord paralysis left Family History Medical History Relation Name Comments Brain cancer Father Hypertension Father Lung cancer Father Throat cancer Mother Cancer Other Heart disease Other Hypertension Paternal Grandfather Hypertension Paternal Grandmother Relation Name Status Comments Father Mother Other Paternal Grandfather Paternal Grandmother Social History Tobacco Use Types Packs/Day Years [...] on file Legal Sex 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 Gender Identity Not on file Sexual Orientation Not on file Obstetrics History Last Filed Vital Signs Vital Sign Reading [...] 09/27/2023 10:47 AM CDT Plan of Treatment Health Maintenance Due Date Last Done Comments Depression Screening 1945 Hepatitis C Screening 1945 Osteoporosis Screening-Bone Density Scan 1945 DTaP/Tdap/Td Vaccine (1 - Tdap) 1958 Hepatitis B Screening 1965 Zoster Vaccine (1 of 2) 1966 Well Visit 65+ 01/15/2012 Pneumococcal vaccine 65+ (2 of 2 - PCV) 01/13/2019 01/13/2018 Fall Risk Assessment 02/22/2022 02/22/2021 Influenza Vaccine (#1) 2024 9, 01/13/2018, 12/26/2016, Additional history exists Medical Devices Implanted Type Area Superior Court Judge Device Identifier Shelf Expiration Date Model / Serial / Lot Bioform Medical [id number] Prolaryn Gel Waterbased Injectable Temporary Implant 1ml Vocal Latex Free - [id number] Implanted:Qty: 1 on 02/22/2021 by Floyd Montano II, MD at [facility] Left: Throat [employer] [id number] 09/23/2022 [id number] / / [id number] Insurance [employer] MEDICARE [employer] MEDICARE SOLUTIONS [employer] MEDICARE SOLUTIONS MEDICARE Advance Directives For more information, please contact: [phone] Documents on File Type Date Recorded Patient Timber Watchman Expl anation Power of Motor Tester 02/22/2021 5:37 AM ADVANCE DIRECTIVE 06/08/2020 12:00 AM POWER OF GAMBRELER HELPER FINANCIAL/MEDICAL * Full Code (Latest Code Status on File) Date Activated Date Inactivated Comments 02/22/2021 8:33 AM 02/22/2021 1:34 PM Care Teams Merchandise Worker Relationship Specialty Start Date End Date Rustam Ulloa MD PCP - General Family Practice 01/19/20 Floyd Montano II, MD Consulting Physician Otolaryngology 02/22/21
--- OUTSIDE RECORDS SUMMARY | 2024-07-14 10:15 | XMS_ITS | Encounter Summary ---
Author Organization [facility] Address [facility] [place] [address] Care Team Providers Care Claims Counsel Name Role Phone Rustam Ulloa MD Primary Care Provider Encounter Details Date Type Department Care Team (Late st Contact Info) Description 02/23/2020 Prep for Procedure [facility] [place], [place] [id number] Hafsa Hernadez MD [address] [facility] [address] [place] [address] Social History Tobacco Use Types Packs/Day Years [...] NOT DETECTED NOT DETECTED 02/24/2020 11:15 AM [facility] Comment: A Not Detected (negative) test [...] providers and patients using the following websites: https://www.Spartan Race.IES/home/Covid-19/HCP/QuestIVD/fact- sheet.html https://www.[employer].IES/home/Covid-19/Patients/ QuestIVD/fact-sheet.html This test has been authorized by the FDA under an Emergency Use Authorization (EUA) for use by authorized laboratories. Due to the current public health emergency, [employer] is receiving a high volume of samples [...] about COVID-19 can be found at the [employer] website: www.GenieDB.IES/Covid19. Test performed at [facility] [place] [address] [place] [address] Director: JALEESA DILLON DO,MPH FIRST TEST NO 02/23/2020 11:33 AM T [facility] EMPLOYED IN [facility] NO 02/23/2020 11:33 AM CDT [facility] SYMPTOMATIC DEFINED BY CDC NO 02/23/2020 11:33 AM CDT [facility] DATE OF SYMPTOM ONSET NO 02/23/2020 11:40 AM CDT [facility] HOSPITALIZATION STATUS NO 02/23/2020 11:33 AM CDT [facility] PATIENT IN ICU NO 02/23/2020 11:33 AM CDT [facility] RESIDENT OF [facility] NO 02/23/2020 11:33 AM CDT [facility] NOT 02/23/2020 11:40 AM CDT [facility] PATIENT'S RACE WHITE OR 02/23/2020 11:33 AM CDT [facility] ETHNICITY NONHISPANIC 02/23/2020 11:33 AM CDT [facility] SOURCE (QST) NASOPHARYNGEAL SWAB 02/23/2020 11:33 AM CDT [facility] NASOPHARYNGEAL SWAB / Unknown 02/23/2020 10:19 AM CDT us Hafsa Hernadez MD MICROBIOLOGY - GENERAL ORDERAB LES Final Result [facility] [address] [place] [address], [facility] [id number] [place] [address], documented in this encounter Visit Diagnoses Diagnosis Diarrhea- Primary Hoarseness Dysphonia documented in this encounter Additional Health Concerns Infection Onset Date Last Indicated Resolved Time COVID-19 Rule Out 02/23/2020 02/23/2020 02/24/2020 11:15 AM CDT documented as of this encounter Care Teams Claims Counsel Relationship Specialty Start Date End Date Rustam Ulloa MD [address] [place] [address] PCP - General FAMILY PRACTICE 02/26/20 documented as of this encounter
[2024-07-14 14:02] LABS: Alanine Aminotransferase 18 U/L (6-35); Albumin Level 4.2 g/dL (3.5-5.1); Alkaline Phosphatase 80 U/L (38-126); Anion Gap 11 mmol/L (4-12); Aspartate Amino Transferase 47 U/L (14-36); Bilirubin,Total 0.6 mg/dL (0.2-1.3); Blood Urea Nitrogen 14 mg/dL (7-17); Calcium 9.8 mg/dL (8.4-10.2); Carbon Dioxide 29 mmol/L (22-30); Chloride 91 mmol/L (98-107); Estimated Glomerular Filt Rate > 60; Glucose 89 mg/dL (65-110); Potassium 3.6 mmol/L (3.4-5.0); Sodium 131 mmol/L (137-145)
== END 2024-07-14 09:27 | disposition home or self-care (01) ==
LOC: ANHGOSHLAB 09:26
PROVIDERS: PCP Family Medicine; Visit Provider Family Medicine
DX: E78.5 Hyperlipidemia, unspecified (principal); I10 Essential (primary) hypertension
CPT/HCPCS: 36415; 80053

== ENCOUNTER 2024-07-15 07:42 | Outpatient (CLI) | payer MEDICARE, MEDICAID, SELFPAY ==
[2024-07-15 07:35] VITALS: PULSE 88; O2SAT 96
[2024-07-15 07:45] VITALS: PULSE 116; O2SAT 88
--- OUTSIDE RECORDS SUMMARY | 2024-07-15 07:48 | XMS_ITS | Referral Summary ---
Author Organization [facility] at the [facility] Office Center Address [address] [place] [address] Care Team Providers Care Sweep Press Operator Name Role Phone Rustam Ulloa MD Primary Care Provider Dusty CREWS MD, Floyd Real Unavailable [phone] Allergies Active Allergy Reactions Criticality Noted Date [...] capsule 1 capsule (2,000 Units total) Active usipw-4-npq-epa -fish oil 300-1,000 mg capsule,delayed release(DR/EC) Activ [...] on file Legal Sex Female 2:56 AM ALL AROUND GEAR MACHINE OPERATOR Gender Identity Not on file Sexual Orientation [...] on file Medical Devices Implanted Type Area Diamond Cleaner Device Identifier Shelf Expiration Date Model / Serial / Lot Bioform Medical [id number] Prolaryn Gel Waterbased Injectable Temporary Implant 1ml Vocal Latex Free - [id number] Implanted:Qty: 1 on 02/22/2021 by Floyd Montano II, MD at [facility] Left: Throat [employer] [id number] 09/23/2022 [id number] / / [id number] Insurance [employer] MEDICARE SOLUTIONS MEDICARE SOLUTIONS [facility] MEDICARE SOLUTIONS MEDICARE Advance Directives For more information, please contact: [phone] Documents on File Type Date Recorded Patient Report Developer Expl anation Power of Stallion Keeper 02/22/2021 5:37 AM ADVANCE DIRECTIVE 06/08/2020 12:00 AM POWER OF WASHROOM CLEANER FINANCIAL/MEDICAL * Full Code (Latest Code Status on File) Date Activated Date Inactivated Comments 02/22/2021 8:33 AM 02/22/2021 1:34 PM Care Teams Sweep Press Operator Relationship Specialty Start Date End Date Rustam Ulloa MD PCP - General Family Practice 01/19/20 Floyd Montano II, MD Consulting Physician Otolaryngology 02/22/21
--- OUTSIDE RECORDS SUMMARY | 2024-07-15 07:48 | XMS_ITS | Encounter Summary ---
Author Organization [facility] Address [facility] [place] [address] Care Team Providers Care Horse Racer Name Role Phone Rustam Ulloa MD Primary Care Provider Encounter Details Date Type Department Care Team (Late st Contact Info) Description 02/23/2020 Prep for Procedure [facility] [place], [place] [id number] Hafsa Hernadez MD [address] [facility] [address] [place] [address] Social History Tobacco Use Types Packs/Day Years [...] NOT DETECTED NOT DETECTED 02/24/2020 11:15 AM [facility] Comment: A Not Detected (negative) test [...] providers and patients using the following websites: https://www.[employer]Content Analytics/home/Covid-19/HCP/QuestIVD/fact- sheet.html https://www.[employer]Content Analytics/home/Covid-19/Patients/ QuestIVD/fact-sheet.html This test has been authorized by the FDA under an Emergency Use Authorization (EUA) for use by authorized laboratories. Due to the current public health emergency, [employer] is receiving a high volume of samples [...] about COVID-19 can be found at the [employer] website: www.fashionandyou.com.Content Analytics/Covid19. Test performed at [facility] [place] [address] [place] [address] Director: JALEESA DILLON DO,MPH FIRST TEST NO 02/23/2020 11:33 AM T [facility] EMPLOYED IN [facility] NO 02/23/2020 11:33 AM CDT [facility] SYMPTOMATIC DEFINED BY CDC NO 02/23/2020 11:33 AM CDT [facility] DATE OF SYMPTOM ONSET NO 02/23/2020 11:40 AM CDT [facility] HOSPITALIZATION STATUS NO 02/23/2020 11:33 AM CDT [facility] PATIENT IN ICU NO 02/23/2020 11:33 AM CDT [facility] NO 02/23/2020 11:33 AM CDT [facility] NOT 02/23/2020 11:40 AM CDT [facility] PATIENT'S RACE WHITE OR 02/23/2020 11:33 AM CDT [facility] ETHNICITY NONHISPANIC 02/23/2020 11:33 AM CDT [facility] SOURCE (QST) NASOPHARYNGEAL SWAB 02/23/2020 11:33 AM CDT [facility] NASOPHARYNGEAL SWAB / Unknown 02/23/2020 10:19 AM CDT us Hafsa Hernadez MD MICROBIOLOGY - GENERAL ORDERAB LES Final Result [facility] [address] [place] [address], [employer] [facility] [id number] [place] [address], documented in this encounter Visit Diagnoses Diagnosis Diarrhea- Primary Hoarseness Dysphonia documented in this encounter Additional Health Concerns Infection Onset Date Last Indicated Resolved Time COVID-19 Rule Out 02/23/2020 02/23/2020 02/24/2020 11:15 AM CDT documented as of this encounter Care Teams Horse Racer Relationship Specialty Start Date End Date uRstam Ulloa MD [address] [place] [address] PCP - General FAMILY PRACTICE 02/26/20 documented as of this encounter
--- OUTSIDE RECORDS SUMMARY | 2024-07-15 07:48 | XMS_ITS | Clinical Summary ---
Author Organization [facility] Address [facility] [place] [address] Care Team Providers Care Director Of Nursing Name Role Phone Rustam Ulloa MD Primary [...] Insurance MEDICARE [employer]ID[employer] [place] Care Teams Director Of Nursing Relationship Specialty Start Date End Date Rustam Ulloa MD [address] [place] [address] PCP - General FAMILY PRACTICE 02/26/20
--- OUTSIDE RECORDS SUMMARY | 2024-07-15 07:49 | XMS_ITS | Clinical Summary ---
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 Gender Identity Not on file Sexual [...] history exists Medical Devices Implanted Type Area Air Conditioning Manager Device Identifier Shelf Expiration Date Model / Serial / Lot Bioform Medical [id number] Prolaryn Gel Waterbased Injectable Temporary Implant 1ml Vocal Latex Free - [id number] Implanted:Qty: 1 on 02/22/2021 by Floyd Montano II, MD at [facility] Left: Throat [employer] [id number] 09/23/2022 [id number] / / [id number] Insurance [place] MEDICARE [employer] [facility] MEDIC[facility] Address: [address] [address] [place] [address] MEDICARE SOLUTIONS [facility] MEDICARE Address: [address] [address] [place] [address] [employer] MEDICARE SOLUTIONS MEDICARE Advance Directives For more information, please contact: [phone] Documents on File Type Date Recorded Patient Industrial Health And Safety Professor Expl anation Power of Mixer Operator Tablets 02/22/2021 5:37 AM ADVANCE DIRECTIVE 06/08/2020 12:00 AM POWER OF RADIO MECHANIC APPRENTICE FINANCIAL/MEDICAL * Full Code (Latest Code Status on File) Date Activated Date Inactivated Comments 02/22/2021 8:33 AM 02/22/2021 1:34 PM Care Teams Telecommunications Linesworker Relationship Specialty Start Date End Date Rustam Ulloa MD PCP - General Family Practice 01/19/20 Floyd Montano II, MD Consulting Physician Otolaryngology 02/22/21
[2024-07-15 07:50] VITALS: PULSE 111; O2SAT 92
[2024-07-15 08:05] VITALS: PULSE 98; O2SAT 95
--- NOTE | 2024-07-15 08:27 | HOMEO2EVAL ---
Evaluation was performed at [facility] Home Oxygen Evaluation RC: Home Oxygen (O2) Evaluation Start: 07/15/24 08:23 Freq: Status: Active Protocol: RPE Activity Type Activity Date Activity User E-sign Co-sign Detail Recorded Client Recorded Date Recorded By Document 07/15/24 07:35 PK [email or web address] 07/15/24 08:27 PKH Document 07/15/24 07:45 PK [email or web address]_007 07/15/24 08:27 PKH Document 07/15/24 07:50 PK [email or web address]_007 07/15/24 08:27 PK Document 07/15/24 08:05 PK [email or web address] 07/15/24 08:27 PKH 07/15/24 07/15/24 07/15/24 07:35 07:45 07:50 Home O2 Evaluation [Oxygen] -Test Phase Resting Exercise Exercise -Oxygen Delivery Room Air Room Air Nasal Cannula -Oxygen Flow Rate (L/min) 1 [Pulse Oximetry] -Pulse Oximetry (90-100 %) 96 88 L 92 [Pulse Rate] -Pulse Rate (60-100 beats/min) 88 116 H 111 H [Charges] -Evaluation Charges O2 Evaluation by Pulmonary 07/15/24 08:05 Home O2 Evaluation [Oxygen] -Test Phase Resting -Oxygen Delivery Room Air -Oxygen Flow Rate (L/min) [Pulse Oximetry] -Pulse Oximetry (90-100 %) 95 [Pulse Rate] -Pulse Rate (60-100 beats/min) 98 [Charges] -Evaluation Charges
== END 2024-07-15 07:43 | disposition home or self-care (01) ==
PROVIDERS: PCP Family Medicine; Visit Provider Internal Medicine Critical Care Medicine
DX: J84.9 Interstitial pulmonary disease, unspecified (principal)
CPT/HCPCS: 94618

== ENCOUNTER 2024-08-12 09:07 | Outpatient (CLI) | payer MEDICARE, MEDICAID, SELFPAY ==
--- NOTE | ~2024-08-12 | CT_ITS ---
EXAMINATION: CT chest high resolution wo co DATE: 08/12/2024 09:34 INDICATION: ILD progression TECHNIQUE: Computed tomography (CT) of the chest was performed without intravenous contrast. Addition al 3D reconstructions utilizing coronal maximum intensity projection (MIP) were performed. Automated exposure control and iterative reconstruction technique were employed. The dose-length product was 14 7.16 mGy-cm. COMPARISON: 01/24/2023 FINDINGS: Lung volumes appear mildly decreased with no significant interval change in bilateral peripheral and lower lung predominant reticular and mild groundglass opacities without honeycombing consistent with nonspecific interstitial pneumonia (NSIP) pattern chronic interstitial lung disease. Unchanged 3 mm a nd 5 mm left lower lobe pulmonary nodules consistent with sequela of old granulomatous disease. No ne w pulmonary nodule, pneumonia or pulmonary edema. No pleural effusion. Heart size normal. Atheroscler otic coronary artery calcification is. Aortic valve calcific lesion. No pericardial effusion. Thoraci c aorta is normal in caliber. No pathologically enlarged thoracic lymphadenopathy. Moderate to large sliding-type hiatal hernia. Cholecystectomy clips at the gallbladder fossa. Severe thoracic spondylos is. IMPRESSION: 1. 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 2. Moderate to large sliding-type hiatal hernia. Reviewed, dictated and finalized at location B. IMPRESSION: 1. Stable nonspecific interstitial pneumonia (NSIP) pattern chronic interstitia l lung disease. 2. Moderate to large sliding-type hiatal hernia.
--- OUTSIDE RECORDS SUMMARY | 2024-08-12 10:00 | XMS_ITS | Encounter Summary ---
Author Organization [facility] Address [facility] [place] [address] Care Team Providers Care Trestle Mainternance Laborer Name Role Phone Rustam Ulloa MD Primary Care Provider Encounter Details Date Type Department Care Team (Late st Contact Info) Description 02/23/2020 Prep for Procedure [facility] [place], [place] [id number] Hafsa Hernadez MD [address] [facility] [address] [place] [address] Social History Tobacco Use Types Packs/Day Years [...] NOT DETECTED NOT DETECTED 02/24/2020 11:15 AM [facility] Comment: A Not Detected (negative) test result [...] providers and patients using the following websites: https://www.Intro[facility]ive.KAL/home/Covid-19/HCP/[facility]/fact- sheet.html https://www.Introhive.KAL/home/Covid-19/Patients/ QuestIVD/fact-sheet.html This test has been authorized by the FDA under an Emergency Use Authorization (EUA) for use by authorized laboratories. Due to the current public health emergency, [facility] is receiving a high volume of samples [...] about COVID-19 can be found at the [facility] website: www.Foodily.KAL/Covid19. Test performed at [facility] [address] [place] [address] Director: JALEESA DILLON DO,MPH FIRST TEST NO 02/23/2020 11:33 AM T [facility] EMPLOYED IN [facility] NO 02/23/2020 11:33 AM CDT [facility] SYMPTOMATIC DEFINED BY CDC NO 02/23/2020 11:33 AM CDT [facility] DATE OF SYMPTOM ONSET NO 02/23/2020 11:40 AM CDT [facility] HOSPITALIZATION STATUS NO 02/23/2020 11:33 AM CDT [facility] PATIENT IN ICU NO 02/23/2020 11:33 AM CDT [facility] RESIDENT OF [facility] NO 02/23/2020 11:33 AM CDT [facility] NOT 02/23/2020 11:40 AM CDT [facility] PATIENT'S RACE WHITE OR 02/23/2020 11:33 AM CDT [facility] ETHNICITY NONHISPANIC 02/23/2020 11:33 AM CDT [facility] SOURCE (QST) NASOPHARYNGEAL SWAB 02/23/2020 11:33 AM CDT [facility] NASOPHARYNGEAL SWAB / Unknown 02/23/2020 10:19 AM CDT us Hafsa Hernadez MD MICROBIOLOGY - GENERAL ORDERAB LES Final Result [facility] [address] [place] [address], [facility] [id number] [place] [address], documented in this encounter Visit Diagnoses Diagnosis Diarrhea- Primary Hoarseness Dysphonia documented in this encounter Additional Health Concerns Infection Onset Date Last Indicated Resolved Time COVID-19 Rule Out 02/23/2020 02/23/2020 02/24/2020 11:15 AM CDT documented as of this encounter Care Teams Trestle Mainternance Laborer Relationship Specialty Start Date End Date Rustam Ulloa MD [address] [place] [address] PCP - General FAMILY PRACTICE 02/26/20 documented as of this encounter
--- OUTSIDE RECORDS SUMMARY | 2024-08-12 10:00 | XMS_ITS | Clinical Summary ---
Author Organization [facility] at the [facility] Office Center Address [address] [place] [address] Care Team Providers Care Marine Equipment Preservation Inspector Name Role Phone Rustam Ulloa MD Primary Care Provider Dusty CREWS MD, Floyd Real Unavailable [phone] Allergies Active Allergy Reactions Criticality Noted Date Comments Erythromycin Unknown 01/27/2020 Sulfa (Sulfonamide Antibiotics) Itching Low 12/04 Medications multivitamin capsule Take 1 capsule by mouth daily Active atorvastatin (LIPITOR) 10 mg tablet Take 1 tablet (10 mg total) by mouth nightly at bedtime 1 Active ascorbic acid (VITAMIN C) 500 mg tablet,chewabl e Take 1 tablet/chew tab (500 mg total) by mouth daily Active cholecalcifero l (VITAMIN D-3) 2000 unit capsule 1 capsule (2,000 Units total) Active tkoml-9-hed-ep a-fish oil 300-1,000 mg capsule,delaye d release(DR/EC) Activ e albuterol HFA (PROVENTIL HFA,VENTOLIN HFA,PROAIR HFA) 90 mcg/actuation inhaler INHALE 1 TO 2 PUFFS BY MOUTH EVERY 4 TO 6 HOURS NEEDED FOR SHORTNESS OF BREATH AND FOR WHEEZING 2 Active lisinopriL (PRINIVIL,ZEST RIL) 40 mg tablet Take 1 tablet (40 mg total) by mouth nightly at bedtime 2 Active SUMAtriptan (IMITREX) 50 mg tablet TAKE 1 TABLET BY MOUTH AT ONSET OF HEADACHE NEEDED. IF NO RELIEF MAY REPEAT DOSE IN 2 HOURS. MAX 4 TABLETS PER DAY. 2 Active coenzyme Q10 200 mg capsule Take 1 capsule (200 mg total) by mouth daily Active oxygenIndicati ons:Dyspnea Administer 2 L/min into each nostril nightly Active amLODIPine (NORVASC) 5 mg tablet Take 1 tablet (5 mg total) by mouth daily 4 Active amoxicillin-cl avulanate (AUGMENTIN) 875-125 mg per tablet Take 1 tablet by mouth 2 (two) times a day 5 Active predniSONE (DELTASONE) 20 mg tablet 5 Active cyanocobalamin (Vitamin B-12) 1,000 mcg tabletIndicati ons:Prevention of Vitamin B12 Deficiency Take 1 tablet (1,000 mcg total) by mouth daily 07/21/19 25 Discontinu ed(Therapy completed) mycophenolate mofetil (CELLCEPT) 500 mg tablet Take 2 tablets (1,000 mg total) by mouth 2 (two) times a day 120 tablet 4 07/18/19 25 Discontinu ed(Alterna te therapy) azaTHIOprine (IMURAN) 50 mg tablet Take 2 tablets (100 mg total) by mouth daily 60 tablet 4 07/18/19 25 Discontinu ed(Therapy completed) Active Problems Problem Noted Date Diagnosed Date ILD (interstitial lung disease) 09/27/2023 Pulmonary hypertension, unspecified 01/04/2022 Pulmonary hypertension 01/04/2022 Acute pharyngitis 09/26/2021 Pharyngeal dysphagia 04/18/2020 Vocal cord paralysis, unilateral complete 2019 Encounters Date Type Department Care Team Description 08/11/2024 Telephone [facility] Pulmonary [facility] Advanced Medicine [address]th [place] [address] [place] [address] Moira Horton CMA 08/07/2024 Telephone [facility] Pulmonary [address] [facility] Advanced Medicine 8th [place] [address] [place] [address] Alesia Daniel RN 08/06/2024 Telephone [facility] Pulmonary [facility] Advanced Medicine 8th [place] [address] [place] [address] Alesia Daniel RN 07/20/2024 9:45 AM CDT Office Visit [facility] Otolaryngology [address] [place], [place] [address] [address] Floyd Montano II, MD Vocal cord paralysis, unilateral complete (Primary Dx); Pharyngeal dysphagia 07/17/2024 9:45 AM CDT Office Visit [facility] Pulmonary [address] [facility] Advanced Medicine 8th [place] [address] [place] [address] Jos Dow MD ILD (interstitial lung disease) (HCC) (Primary Dx); Nocturnal hypoxemia; Physical deconditioning; Lupus disease of lung (HCC) 07/17/2024 8:20 AM CDT - 07/17/2024 11:59 PM CDT Hospital Encounter [facility] Pulmonary [address] [facility] [address] [place] [address] ILD (interstitial lung disease) (HCC) Discharge Disposition: Discharge to home or self care from Last 3 Months Surgical History Surgery Date Site/Laterality Comments APPENDECTOMY [...] Frequency of Binge Drinking Not on file 10/0 08/2020 Comments No Sex and Gender Information Value Date Recorded Sex Assigned at Not on file Legal Sex Female 2:56 AM 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 Gender Identity Not on file Sexual Orientation Not on file Obstetrics History Last Filed Vital Signs Vital Sign Reading Time Taken Comments Blood Pressure 146/88 07/17/2024 9:20 AM CDT Pulse 106 07/17/2024 9:20 AM CDT Temperature 36.1 C (96.9 F) 07/17/2024 9:20 AM CDT Respiratory Rate 18 07/20/2024 9:25 AM CDT Oxygen Saturation 92% 07/17/2024 9:20 AM CDT Inhaled Oxygen Concentration - - Weight 65.3 kg (144 lb) 07/20/2024 9:25 AM CDT Height 152.4 cm (5') 07/20/2024 9:25 AM CDT Body Mass Index 28.12 07/20/2024 9:25 AM CDT Plan of Treatment Health Maintenance Due Date Last Done Comments Depression Screening 1945 Hepatitis C Screening 1945 Osteoporosis Screening-Bone Density Scan 1945 DTaP/Tdap/Td Vaccine (1 - Tdap) 1958 Hepatitis B Screening 1965 Zoster Vaccine (1 of 2) 1997 Well Visit 65+ 01/15/2012 Pneumococcal vaccine 65+ (2 of 2 - PCV) 01/13/2019 01/13/2018 Fall Risk Assessment 02/22/2022 02/22/2021 Influenza Vaccine (Season Ended) 2025 01/12/2019, 01/13/2018, 12/26/2016, Additional history exists Medical Devices Implanted Type Area Coating And Baking Operator Device Identifier Shelf Expiration Date Model / Serial / Lot Bioform Medical [id number] Prolaryn Gel Waterbased Injectable Temporary Implant 1ml Vocal Latex Free - [id number] Implanted:Qty: 1 on 02/22/2021 by Floyd Montano II, MD at [facility] [place] Left: Throat [employer] [id number] 09/23/2022 [id number] / / [id number] Procedures Procedure Name Priority Date/Time Associated Diagnosis Comments PULMONARY FUNCTION TEST (PFT) Routine 07/17/2024 8:57 AM CDT ILD (interstitial lung disease) (HCC) from Last 3 Months Results * Pulmonary Function Test - (07/17/2024 8:57 AM CDT) FVC PRE 1.30 L [facility] FVC %PRE PRED 61 % [facility] FEV1 PRE 1.13 L [facility] FEV1 %PRE PRED 69 % [facility] FEV1/FVC PRE 87.3 % [facility] Anatomical Region Laterality Modality PFT 07/17/2024 8:24 AM CDT Impressions 07/17/2024 3:53 PM CDT There is a moderate restrictive ventilatory defect. However measurement of lung volumes is suggested to confirm this if clinically indicated. Compared with study dated 09.27.2023 , there has been significant interval worsening of the FVC by 240 ml. Compared with study dated 09.27.2023 , there has been significant interval worsening of the FEV1 by 240 ml. The attending pulmonary physician certifies a physician presence in the [facility] Suite during the administration of aerosolized bronchodilator. The attending pulmonary physician certifies that he/she has reviewed and interpreted the graphic and numerical data of this pulmonary function study and agrees with the written final report. The lower limit of normal for PO2 and %HbO2 is age dependent. However, the [facility] Pulmonary Function Laboratory defines hypoxemia as a PO2 <55 or a %HbO2 <89. Starting on May 2024 the [facility] Pulmonary Function Laboratory utilizes race neutral GLI Global normative equations. Narrative 07/17/2024 3:53 PM CDT Table formatting from the original result was not included. [facility] Division of Pulmonary & Critical Care Medicine [address] [place] [address]; [address]; [place] [address]; [phone] Pulmonary Function Laboratory Pulmonary Stress Test Simple/Oxygen Assessment Patient: Corrine Leger Date: 07/17/2024 : 1945 Ht: 59 IN Wt: 144 LBS Time (min) Distance (ft)/ Dickson O2 L/M SpO2 HR Otf* BP FEV1 % Pred Rest: RA 97 103 2 122/78 1.13 69 % Walk/Bike: 1 RA 97 100 3 2 RA 93 119 3 3 RA 93 124 4 4 RA 93 122 4 5 RA 94 122 4 6 min 0 sec RA 94 128 4 Recovery: 1 RA 95 113 3 121/83 1.05 64% 3 RA 97 112 3 *Otf rate of perceived exertion (1-10 dyspnea scale) Jeff, CHEST 2003; 123:1408 Walk Test Summary: Six Minute Walk Distance: 675 ft Six-minute Walk Work [distance (m) x body wt (kg)]: 79609 kg.m (normal >60,000kg.m) Oxygen required to maintain SpO2 greater than 90% during six minutes of walkin L/M Comments: O2A Interpretation: Breathing room air, SpO2 is normal at rest and during exercise sufficient to increase pulse, SpO2 falls but remains normoxemic . On this basis, SpO2 is adequate at rest breathing room air and while walking breathing room air. This level of exercise is associated with no significant change of FEV1. By signing this report, the attending pulmonary physician certifies that he/she has personally reviewed and interpreted the graphic and numerical data associated with this pulmonary function study and has reviewed and /or edited a preliminary draft report and agrees with the written final report. PFT performed at:->[facility] Adult PFT Lab- [facility] Procedure:->Spirometry Procedure:->Oxygen Assessment Titration Pulmonary Function Test Interpretation SPIROMETRY: Spirometry did not meet standards of acceptability and reproducibility. This diminishes the reliability of the results The FEVI to FVC ratio is normal. The FEV-I and FVC are reduced in a pattern suggestive of a restrictive abnormality. However, measurement of lung volumes is suggested to confirm this if clinically indicated. FLOW VOLUME LOOPS: The inspiratory loop is suggestive of submaximal effort. PULSE OXIMETRY: See Oxygen Assessment/Cardiopulmonary Exercise Study-Simple Jos Dow MD PFT ORDERABLES F inal Result from Last 3 Months Insurance IDPA [facility] MEDICARE ADVANTAGE IDTN [employer] MEDICARE ADVANTAGE IDPA [facility] MEDICARE ADVANTAGE MEDICARE [facility] Address: [address] [address] Advance Directives For more information, please contact: [phone] Documents on File Type Date Recorded Patient Bean Snipper Expl anation Power of Rectifier Operator 02/22/2021 5:37 AM ADVANCE DIRECTIVE 06/08/2020 12:00 AM POWER OF MODEL AND MOLD MAKER FINANCIAL/MEDICAL * Full Code (Latest Code Status on File) Date Activated Date Inactivated Comments 02/22/2021 8:33 AM 02/22/2021 1:34 PM Care Teams Marine Equipment Preservation Inspector Relationship Specialty Start Date End Date Rustam Ulloa MD PCP - General Family Practice 01/19/20 Floyd Montano II, MD Consulting Physician Otolaryngology 02/22/21
--- OUTSIDE RECORDS SUMMARY | 2024-08-12 10:00 | XMS_ITS | Clinical Summary ---
Author Organization [facility] Address [facility] [place] [address] Care Team Providers Care Referral Clerk Name Role Phone Rustam Ulloa MD Primary [...] - 1-dose 75+ series) 2022 COVID-19 Vaccine (1 - 2023-2 5 season) 2024 Colorectal Cancer Screening Colonoscopy (10 Years) [...] Insurance MEDICARE [employer] Care Teams Referral Clerk Relationship Specialty Start Date End Date Rustam Ulloa MD [address] [place] [address] PCP - General FAMILY PRACTICE 02/26/20
--- OUTSIDE RECORDS SUMMARY | 2024-08-12 10:00 | XMS_ITS | Encounter Summary ---
Author Organization [facility] Address [address] [place] [address] Phone Care Team Providers Care Carpenter Mold Name Role Phone Rustam Ulloa MD Primary Care Provider Dusty CREWS MD, Floyd Real Unavailable [phone] Encounter Details Date Type Department Care Team (Late st Contact Info) Description 08/11/2024 Telephone [facility] Pulmonary [address] [facility] 8th [place] [address] [place] [address] Moira Horton CMA Social History Tobacco Use Types Packs/Day Years [...] of Binge Drinking Not on file 08/2020 Comments No Sex and Gender Information Value Date Recorded Sex Assigned at Not on file Legal Sex Female 2:56 AM LOT ATTENDANT Gender Identity Not on file Sexual Orientation Not on file documented as of this encounter Miscellaneous Notes * Telephone Encounter - Moira Horton CMA - 08/11/2024 11:45 AM CDT Echo scheduled for Saturday08/21/2024 at 1pm at [facility]. Order was already placed and scheduled by local assessment analyst. Requested that report is faxed to our office once complete. documented in this encounter Plan of Treatment Not on file documented as of this encounter Visit Diagnoses Not on filedocumented in this encounter Care Teams Carpenter Mold Relationship Specialty Start Date End Date Rustam Ulloa MD PCP - General Family Practice 01/19/20 Floyd Montano II, MD Consulting Physician Otolaryngology 02/22/21 documented as of this encounter
--- OUTSIDE RECORDS SUMMARY | 2024-08-12 10:00 | XMS_ITS | Referral Summary ---
Author Organization [facility] Address [address] [place] [address] Care Team Providers Care Paper Mill Manager Name Role Phone Rustam Ulloa MD Primary Care Provider Dusty CREWS MD, Floyd Real Unavailable [phone] Encounters Date Type Department Care Team Description 08/11/2024 Telephone [facility] Pulmonary [address] [facility] Advanced Medicine 8th [place] [address] [place] [address] Moira Horton CMA 08/07/2024 Telephone [facility] Pulmonary [address] [facility] Advanced Medicine 8th [place] [address] [place] [address] Alesia Daniel, RASHAD 08/06/2024 Telephone [facility] Pulmonary [address] [facility] Advanced Medicine 8th [place] [address] [place] [address] Alesia Daniel, RN 07/20/2024 9:45 AM CDT Office Visit [facility] Otolaryngology [address] [place] [address] Floyd Montano II, MD Vocal cord paralysis, unilateral complete (Primary Dx); Pharyngeal dysphagia 07/17/2024 8:20 AM CDT - 07/17/2024 11:59 PM CDT Hospital Encounter [facility] Pulmonary [address] [facility] [address] [place] [address] ILD (interstitial lung disease) (HCC) Discharge Disposition: Discharge to home or self care 07/17/2024 9:45 AM CDT Office Visit [facility] Pulmonary [address] [facility] 8th [place] [address] [place] [address] Jos Dow MD ILD (interstitial lung disease) ([facility]) (Primary Dx); Nocturnal hypoxemia; Physical deconditioning; Lupus disease of lung ([facility]) from Last 3 Months Allergies Active Allergy Reactions Criticality Noted Date [...] capsule 1 capsule (2,000 Units total) Active hotjx-9-akj-ep a-fish oil 300-1,000 mg capsule,delaye d release(DR/EC) [...] by mouth daily 60 tablet 4 07/18/19 Discontinu ed(Therapy completed) Active Problems Problem Noted [...] on file 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 Gender Identity Not on file Sexual Orientation [...] 07/20/2024 9:25 AM CDT Plan of Treatment Not on file Medical Devices Implanted Type Area Desilverizer Device Identifier Shelf Expiration Date Model / Serial / Lot Bioform Medical [id number] Prolaryn Gel Waterbased Injectable Temporary Implant 1ml Vocal Latex Free - [id number] Implanted:Qty: 1 on 02/22/2021 by Floyd Montano II, MD at [facility] Left: Throat [employer] [id number] 09/23/2022 [id number] / / [id number] Procedures Procedure Name Priority Date/Time Associated Diagnosis Comments PULMONARY FUNCTION TEST (PFT) Routine 07/17/2024 8:57 AM CDT ILD (interstitial lung disease) (HCC) from Last 3 Months Results * Pulmonary Function Test - (07/17/2024 8:57 AM CDT) FVC PRE 1.30 L [facility] FVC %PRE PRED 61 % [facility] FEV1 PRE 1.13 L [facility] FEV1 %PRE PRED 69 % [facility] FEV1/FVC PRE 87.3 % [facility] Anatomical Region Laterality Modality PFT 07/17/2024 8:24 [...] and %HbO2 is age dependent. However, the [facility] Pulmonary Function Laboratory defines hypoxemia as a PO2 <55 or a %HbO2 <89. Starting on May 2024 the [facility] Pulmonary Function Laboratory utilizes race neutral GLI Global normative equations. Narrative 07/17/2024 3:53 PM CDT Table formatting from the original result was not included. [facility] Division of Pulmonary & Critical Care Medicine [address] [place] [address]; [place] [address]; [place] [address]; [phone] Pulmonary Function Laboratory Pulmonary Stress Test Simple/Oxygen [...] Work [distance (m) x body wt (kg)]: 36777 kg.m (normal >60,000kg.m) Oxygen required to maintain [...] with the written final report. PFT performed at:->[facility] Adult PFT Lab- [facility] Procedure:->Spirometry Procedure:->Oxygen [...] inal Result from Last 3 Months Insurance IDTN [facility] MEDICARE [facility]ANTAGE [facility] Address: [address] [address] [place] [address] IDTN [facility] MEDICARE ADVANTAGE [facility] MEDICARE [facility]ANTAGE [facility] Address: [address] [address] [place] [address] MEDICARE Advance Directives For more information, please contact: [phone] Documents on File Type Date Recorded Patient Well Logging Mud Analysis Captain Expl anation Power of Risk Officer 02/22/2021 5:37 AM ADVANCE DIRECTIVE 06/08/2020 12:00 AM POWER OF THROW OUT CLERK FINANCIAL/MEDICAL * Full Code (Latest Code Status on File) Date Activated Date Inactivated Comments 02/22/2021 8:33 AM 02/22/2021 1:34 PM Care Teams Paper Mill Manager Relationship Specialty Start Date End Date Rustam Ulloa MD PCP - General Family Practice 01/19/20 Floyd Montano II, MD Consulting Physician Otolaryngology 02/22/21
== END 2024-08-12 09:08 | disposition home or self-care (01) ==
LOC: ANHIMG 09:08
PROVIDERS: PCP Family Medicine; Visit Provider Internal Medicine Critical Care Medicine
DX: J84.112 Idiopathic pulmonary fibrosis (principal); K44.9 Diaphragmatic hernia without obstruction or gangrene
CPT/HCPCS: 71250

== ENCOUNTER 2024-08-13 07:46 | Outpatient (CLI) | payer MEDICARE, MEDICAID, SELFPAY ==
--- OUTSIDE RECORDS SUMMARY | 2024-08-13 07:50 | XMS_ITS | Referral Summary ---
Author Organization [facility] Address [address] [place] [address] Care Team Providers Care Buffing Machine Tender Name Role Phone Rustam Ulloa MD Primary Care Provider Dusty CREWS MD, Floyd Real Unavailable [phone] Encounters Date Type Department Care Team Description 08/11/2024 Telephone [facility] Pulmonary [address] [facility] [address]th [place] [address] [place] [address] Moira Horton CMA 08/07/2024 Telephone [facility] Pulmonary [address] [facility] 8th [place] [address] [place] [address] Alesia Daniel, RASHAD 08/06/2024 Telephone [facility] Pulmonary [address] [facility] 8th [place] [address] [place] [address] Alesia Daniel, RN 07/20/2024 9:45 AM CDT Office Visit [facility] Otolaryngology [address] [place] [address] Floyd Montano II, MD Vocal cord paralysis, unilateral complete (Primary Dx); Pharyngeal dysphagia 07/17/2024 8:20 AM CDT - 07/17/2024 11:59 PM CDT Hospital Encounter [facility] Pulmonary [address] [facility] [address] [place] [address] ILD (interstitial lung disease) (HCC) Discharge Disposition: Discharge to home or self care 07/17/2024 9:45 AM CDT Office Visit [facility] Pulmonary [address] [facility] 8th [place] [address] [place] [address] Jos Dow MD ILD (interstitial lung disease) ([facility]) (Primary Dx); Nocturnal hypoxemia; Physical deconditioning; Lupus disease of lung ([facility]) from Last 3 Months Allergies Active Allergy [...] capsule 1 capsule (2,000 Units total) Active uvelb-1-adn-ep a-fish oil 300-1,000 mg capsule,delaye d release(DR/EC) [...] on file Legal Sex Female 2:56 AM 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 Gender Identity Not on file Sexual Orientation [...] on file Medical Devices Implanted Type Area Supervisor Telephone Clerks Device Identifier Shelf Expiration Date Model / Serial / Lot Bioform Medical [id number] Prolaryn Gel Waterbased Injectable Temporary Implant 1ml Vocal Latex Free - [id number] Implanted:Qty: 1 on 02/22/2021 by Floyd Montano II, MD at [facility] Left: Throat [employer] [id number] 09/23/2022 [id number] / / [id number] Procedures Procedure Name Priority Date/Time Associated Diagnosis Comments PULMONARY FUNCTION TEST (PFT) Routine 07/17/2024 8:57 AM CDT ILD (interstitial lung disease) (HCC) from Last 3 Months Results * Pulmonary Function Test - (07/17/2024 8:57 AM CDT) FVC PRE 1.30 L [facility] FVC %PRE PRED 61 % [facility] FEV1 PRE 1.13 L [facility] FEV1 %PRE PRED 69 % [facility] FEV1/FVC PRE 87.3 % [facility] Anatomical Region Laterality Modality PFT 07/17/2024 8:24 [...] and %HbO2 is age dependent. However, the [facility] Pulmonary Function Laboratory defines hypoxemia as a PO2 <55 or a %HbO2 <89. Starting on May 2024 the [facility] Pulmonary Function Laboratory utilizes race neutral GLI Global normative equations. Narrative 07/17/2024 3:53 PM CDT Table formatting from the original result was not included. [facility] Division of Pulmonary & Critical Care Medicine [address] [place] [address]; [address]; [place] [address]; [phone] Pulmonary Function Laboratory Pulmonary Stress Test Simple/Oxygen [...] Work [distance (m) x body wt (kg)]: 70039 kg.m (normal >60,000kg.m) Oxygen required to maintain [...] final report. PFT performed at:->[facility] Adult PFT Lab- CAM-8D Procedure:->Spirometry Procedure:->Oxygen [...] inal Result from Last 3 Months Insurance [facility] MEDICARE [facility] Address: [address] [address] [place] [address] [employer]NM [facility] MEDICARE ADVANTAGE [facility] MEDICARE [facility] Address: [address] [address] [place] [address] MEDICARE Advance Directives For more information, please contact: [phone] Documents on File Type Date Recorded Patient Spiritual Care Coordinator Expl anation Power of Homebirth Midwife 02/22/2021 5:37 AM ADVANCE DIRECTIVE 06/08/2020 12:00 AM POWER OF BIOCHEMICAL ENGINEER FINANCIAL/MEDICAL * Full Code (Latest Code Status on File) Date Activated Date Inactivated Comments 02/22/2021 8:33 AM 02/22/2021 1:34 PM Care Teams Buffing Machine Tender Relationship Specialty Start Date End Date Rustam Ulloa MD PCP - General Family Practice 01/19/20 Floyd Montano II, MD Consulting Physician Otolaryngology 02/22/21
--- OUTSIDE RECORDS SUMMARY | 2024-08-13 07:50 | XMS_ITS | Clinical Summary ---
Author Organization [facility] Address [facility] [place] [address] Care Team Providers Care Sagger Filler Name Role Phone Rustam Ulloa MD Primary [...] Insurance MEDICARE [employer] [place] Care Teams Sagger Filler Relationship Specialty Start Date End Date Rustam Ulloa MD [address] [place] [address] PCP - General FAMILY PRACTICE 02/26/20
--- OUTSIDE RECORDS SUMMARY | 2024-08-13 07:50 | XMS_ITS | Encounter Summary ---
Author Organization [facility] Address [facility] [place] [address] Care Team Providers Care Final Touch Up Painter Name Role Phone Rustam Ulloa MD Primary Care Provider Encounter Details Date Type Department Care Team (Late st Contact Info) Description 02/23/2020 Prep for Procedure [facility] [place] [id number] Hafsa Hernadez MD [address] [facility] [address] [place] [address] Social History Tobacco Use Types Packs/Day Years [...] DETECTED 02/24/2020 11:15 AM [facility] Comment: A Not Detected (negative) test result [...] providers and patients using the following websites: https://www.[employer].Womai/home/Covid-19/HCP/Quest[facility]/fact- sheet.html https://www.[employer].Womai/home/Covid-19/Patients/ QuestIVD/fact-sheet.html This test has been authorized by the FDA under an Emergency Use Authorization (EUA) for use by authorized laboratories. Due to the current public health emergency, [facility] is receiving a high volume of samples [...] about COVID-19 can be found at the [facility] website: www.[employer].Womai/Covid19. Test performed at [facility] [address] [place] [address] Director: JALEESA DILLON DO,MPH FIRST TEST NO 02/23/2020 11:33 AM T [facility] NO 02/23/2020 11:33 AM CDT [facility] SYMPTOMATIC DEFINED BY CDC NO 02/23/2020 11:33 AM CDT [facility] DATE OF SYMPTOM ONSET NO 02/23/2020 11:40 AM CDT [facility] HOSPITALIZATION STATUS NO 02/23/2020 11:33 AM CDT [facility] PATIENT IN ICU NO 02/23/2020 11:33 AM CDT [facility] RESIDENT OF [facility] NO 02/23/2020 11:33 AM CDT [facility] [...] LES Final Result [facility] [address] [place] [address], [facility] [id number] [place] [address], documented in this encounter Visit Diagnoses Diagnosis Diarrhea- Primary Hoarseness Dysphonia documented in this encounter Additional Health Concerns Infection Onset Date Last Indicated Resolved Time COVID-19 Rule Out 02/23/2020 02/23/2020 02/24/2020 11:15 AM CDT documented as of this encounter Care Teams Final Touch Up Painter Relationship Specialty Start Date End Date Rustam Ulloa MD [address] [place] [address] PCP - General FAMILY PRACTICE 02/26/20 documented as of this encounter
--- OUTSIDE RECORDS SUMMARY | 2024-08-13 07:50 | XMS_ITS | Clinical Summary ---
Author Organization [facility] at [facility] Address [address] [place] [address] Care Team Providers Care Blending Tank Tender Name Role Phone Rustam Ulloa MD Primary Care Provider Dusty CREWS MD, Floyd Real Unavailable [phone] Allergies Active Allergy Reactions Criticality Noted Date [...] capsule 1 capsule (2,000 Units total) Active bdpwf-4-ejn-ep a-fish oil 300-1,000 mg capsule,delaye d release(DR/EC) [...] Type Department Care Team Description 08/11/2024 Telephone [facility] Pulmonary [facility] Advanced Medicine [address]th [place] [address] [place] [address] Moira Horton CMA 08/07/2024 Telephone [facility] Pulmonary [address] [facility] Advanced [facility] 8th [place] [address] [place] [address] Alesia Daniel RN 08/06/2024 Telephone [facility] Pulmonary [facility] Advanced Medicine 8th [place] [address] [place] [address] Alesia Daniel RN 07/20/2024 9:45 AM CDT Office Visit [facility] Otolaryngology [address] [place], [place] [address] [address] Floyd Montano II, MD Vocal cord paralysis, unilateral complete (Primary Dx); Pharyngeal dysphagia 07/17/2024 9:45 AM CDT Office Visit [facility] Pulmonary [address] [facility] Advanced Medicine 8th [place] [address] [place] [address] Jos Dow MD ILD (interstitial lung disease) (HCC) (Primary Dx); Nocturnal hypoxemia; Physical deconditioning; Lupus disease of lung (HCC) 07/17/2024 8:20 AM CDT - 07/17/2024 11:59 PM CDT Hospital Encounter [facility] Pulmonary [address] [facility] [address] [place] [address] ILD (interstitial lung disease) (HCC) Discharge Disposition: [...] on file Legal Sex Female 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 Gender Identity Not on file Sexual Orientation [...] history exists Medical Devices Implanted Type Area Syrup Maker Device Identifier Shelf Expiration Date Model / Serial / Lot Bio[employer] Medical [id number] Prolaryn Gel Waterbased Injectable Temporary Implant 1ml Vocal Latex Free - [id number] Implanted:Qty: 1 on 02/22/2021 by Floyd Montano II, MD at [facility] Left: Throat [employer] [id number] 09/23/2022 [id number] / / [id number] Procedures Procedure Name Priority Date/Time Associated Diagnosis Comments PULMONARY FUNCTION TEST (PFT) Routine 07/17/2024 8:57 AM CDT ILD (interstitial lung disease) (HCC) from Last 3 Months Results * Pulmonary Function Test - (07/17/2024 8:57 AM CDT) FVC PRE 1.30 L [facility] FVC %PRE PRED 61 % [facility] FEV1 PRE 1.13 L [facility] FEV1 %PRE PRED 69 % [facility] FEV1/FVC PRE 87.3 % [facility] Anatomical Region Laterality Modality PFT 07/17/2024 [...] and %HbO2 is age dependent. However, the [facility] Pulmonary Function Laboratory defines hypoxemia as a PO2 <55 or a %HbO2 <89. Starting on May 2024 the [facility] Pulmonary Function Laboratory utilizes race neutral GLI Global normative equations. Narrative 07/17/2024 3:53 PM CDT Table formatting from the original result was not included. [facility] Division of Pulmonary & Critical Care Medicine [address] [place] [address]; [address]; [place] [address]; [phone] Pulmonary Function Laboratory Pulmonary Stress Test Simple/Oxygen [...] Work [distance (m) x body wt (kg)]: 30054 kg.m (normal >60,000kg.m) Oxygen required to maintain [...] with the written final report. PFT performed at:->[facility] Adult PFT Lab- CAM-8D Procedure:->Spirometry Procedure:->Oxygen Assessment [...] Result from Last 3 Months Insurance [facility] MEDICARE ADVANTAGE [employer] MEDICARE ADVANTAGE [facility] MEDICARE ADVANTAGE MEDICARE Advance Directives For more information, please contact: [phone] Documents on File Type Date Recorded Patient Lime Hide Inspector Expl anation Power of Corrections Caseworker 02/22/2021 5:37 AM ADVANCE DIRECTIVE 06/08/2020 12:00 AM POWER OF SLOT SERVICE SPECIALIST FINANCIAL/MEDICAL * Full Code (Latest Code Status on File) Date Activated Date Inactivated Comments 02/22/2021 8:33 AM 02/22/2021 1:34 PM Care Teams Blending Tank Tender Relationship Specialty Start Date End Date Rustam Ulloa MD PCP - General Family Practice 01/19/20 Floyd Montano II, MD Consulting Physician Otolaryngology 02/22/21
--- NOTE | 2024-08-13 16:00 | WPDSIXMINUTE ---
Six Minute Walk Procedure Procedure Performed Pulmonary Stress Test (6 min walk) Six Minute Walk Six Minute Walk: This is a 6 minute walk test. The test was performed and interpreted in accordance with the 2014 ERS/ATS task force guidelines. Findings: The patient's resting room air oxygen saturation measured by pulse oximetry was 96%, the heart rate was 78 bpm, and the modified Otf dyspnea score was 2. Patient ambulated for 305 meters and oxygen saturation remained 88 to 93%. At the end of the study the heart rate was 127 bpm and the modified Otf dyspnea score was 4. The patient did qualify for supplemental oxygen with ambulation and recommend formal home O2 assessment to determine needs. There are no prior studies for comparison.
== END 2024-08-13 07:47 | disposition home or self-care (01) ==
PROVIDERS: PCP Family Medicine; Visit Provider Internal Medicine Critical Care Medicine
DX: J84.9 Interstitial pulmonary disease, unspecified (principal)
CPT/HCPCS: 94618

== ENCOUNTER 2024-08-21 12:44 | Outpatient (CLI) | payer MEDICARE, MEDICAID, SELFPAY ==
--- NOTE | 2024-08-21 12:45 | ECHO_ITS ---
Patient Info Name: Corrine Leger Age: 79 years : 1945 Gender: Female Ht: 60 in Wt: 144 lbs BSA: 1.68 m2 HR: 73 bpm BP: 134 / 84 mmHg Technical Quality: Good Exam Date: 08/21/2024 12:53 PM Exam Location: Echo Lab Patient Status: Outpatient Admit Date: 08/21/2024 Staff Ordering Physician: Chante Mendoza MD Office Chair Assembler: Gaby Bee RDCS Attending Provider: Chante Mendoza MD Referring Physician: Kelly OSEI; Exam Type: CA echo doppler color flow Study Info Indications - CHRONIC INTERSTITIAL LUNG DISEASE - UNUSUAL INTERSTITIAL PNEUMONITIS Complete two-dimensional, color flow and Doppler transthoracic echocardiogram is performed. Summary 1. Complete two-dimensional, color flow and Doppler transthoracic echocardiogram is performed. 2. Left ventricular chamber dimension is normal. 3. Left ventricular systolic function is normal, estimated at 60-65%. 4. There is moderate concentric increased left ventricular wall thickness. 5. The left ventricular diastolic function is grade I diastolic dysfunction. 6. E/e' 16 is elevated. 7. Left atrial chamber dimension is mildly enlarged. 8. There is moderate aortic valve sclerosis. 9. There is mild aortic valve stenosis with a peak velocity of 162 cm/s, mean gradient of 5 mmHg, and aortic valve area of 1.8 cm2. 10. There is mild to moderate aortic valve regurgitation. 11. There is trace tricuspid valve regurgitation. 12. No pulmonary hypertension, estimated pulmonary arterial systolic pressure is 34 mmHg. 13. Small atheroma in anterior and posterior aortic root. Left Ventricle E/e' 16 is elevated. Left ventricular chamber dimension is normal. Left ventricular systolic function is normal, estimated at 60-65%. There is moderate concentric increased left ventricular wall thickness. The left ventricular diastolic function is grade I diastolic dysfunction. Right Ventricle Right ventricular chamber dimension is normal. Right ventricular systolic function is normal. Left Atria Left atrial chamber dimension is mildly enlarged. Right Atria Right atrial chamber dimension is normal. Aortic Valve The aortic valve is trileaflet. There is moderate aortic valve sclerosis. There is mild aortic valve stenosis with a peak velocity of 162 cm/s, mean gradient of 5 mmHg, and aortic valve area of 1.8 cm2. There is mild to moderate aortic valve regurgitation. Pulmonic Valve There is no pulmonic regurgitation. Mitral Valve There is no mitral valve stenosis. There is no mitral valve regurgitation. Tricuspid Valve There is trace tricuspid valve regurgitation. No pulmonary hypertension, estimated pulmonary arterial systolic pressure is 34 mmHg. Pericardium/Pleural There is no pericardial effusion. Inferior Vena Cava Normal inferior vena cava with >50% collapse upon inspiration consistent with normal right atrial pressure, 5 mmHg. Aorta Small atheroma in anterior and posterior aortic root. The aortic root size at the sinus of Valsalva is normal. Left Ventricular Outflow Tract Name Value Normal LVOT 2D LVOT Diameter 1.9 cm LVOT Doppler LVOT Peak Gradient 4 mmHg LVOT Mean Gradient 2 mmHg LVOT VTI 21 cm LVOT VTI/AV VTI Ratio 0.6 LVOT Stroke Volume 60 ml LVOT CO 4.1 l/min LVOT CI 2.4 l/min/m2 Pulmonic Valve Name Value Normal RVOT Doppler RVOT Peak Gradient 1 mmHg PV Doppler PV Peak Gradient 3 mmHg Mitral Valve Name Value Normal MV Doppler MV Decel [place] 415 cm/s2 MV PHT 45 ms MV Area (PHT) 4.9 cm2 4.0-5.0 MV Diastolic Function MV E Peak Velocity 65 cm/s MV A Peak Velocity 69 cm/s MV E/A 0.9 MV Decel Time 156 ms Tricuspid Valve Name Value Normal TV Regurgitation Doppler TR Peak Velocity 271 cm/s TR Peak Gradient 29 mmHg Estimated PAP/RSVP RA Pressure 5 mmHg <=5 PA Systolic Pressure 34 mmHg <36 RV Systolic Pressure 34 mmHg <36 Aorta Name Value Normal Ascending Aorta Ao Root Diameter (MM) 2.2 cm Ao Root Diam Index (MM) 1.3 cm/m2 Aortic Valve Name Value Normal AV Doppler AV Peak Velocity 162 cm/s AV Peak Gradient 9 mmHg AV Mean Gradient 5 mmHg AV VTI 33 cm AV Area (Cont Eq VTI) 1.8 cm2 >=3.0 AV Area (Cont Eq Ari) 1.9 cm2 AV Regurgitation 2D LVOT Area 2.9 cm2 AV Regurgitation Doppler AR Decel Time 1,995 ms AR Decel [place] 225 cm/s2 AR PHT 579 ms Ventricles Name Value Normal LV Dimensions 2D/MM IVS Diastolic Thickness (2D) 1.5 cm 0.6-1.0 IVS Diastole Thickness (MM) 1.3 cm 0.6-0.9 LVID Diastole (2D) 3.2 cm 3.8-5.2 LVID Diastole (MM) 3.9 cm 3.8-5.2 LVIW Diastolic Thickness (2D) 1.3 cm 0.6-0.9 LVIW Diastolic Thickness (MM) 1.1 cm 0.6-0.9 LVID Systole (2D) 2.0 cm 2.2-3.5 LVID Systole (MM) 2.3 cm 2.2-3.5 LVOT Diameter 1.9 cm LV Mass (2D Cubed) 157.08 g 67.00-162.00 LV Mass Index (2D Cubed) 93 g/m2 43-95 Relative Wall Thickness (2D) 0.83 LV Mass (MM Cubed) 156.33 g 67.00-162.00 LV Mass Index (MM Cubed) 93 g/m2 43-95 Relative Wall Thickness (MM) 0.58 LV Fractional Shortening/Ejection Fraction 2D/MM LV Fractional Shortening (2D) 35 % 27-45 LV Fractional Shortening (MM) 41 % 27-45 LV EF (MM Teicholz) 73 % 54-74 LV EF (2D Teicholz) 66 % 54-74 LV Diastolic Volume (4C MOD) 49 ml LV EF (4C MOD) 66 % LV Diastolic Volume (2C MOD) 57 ml LV EF (2C MOD) 65 % LV Diastolic Volume (BP MOD) 53 ml 46-106 LV Diastolic Volume Index (BP MOD) 32 ml/m2 29-61 LV Systolic Volume (BP MOD) 18 ml 14-42 LV Systolic Volume Index (BP MOD) 11 ml/m2 8-24 LV EF (BP MOD) 66 % 54-74 LV Diastolic Length (4C) 6.4 cm LV Systolic Length (4C) 5.9 cm LV Stroke Volume (4C MOD) 32 ml Atria Name Value Normal LA Dimensions LA Dimension (MM) 5.0 cm 2.7-3.8 LA Volume (4C A-L) 18 ml LA Volume (BP A-L) 23 ml RA Dimensions RA Area (4C) 9.5 cm2 <=18.0 Report Signatures
--- OUTSIDE RECORDS SUMMARY | 2024-08-21 12:46 | XMS_ITS | Clinical Summary ---
Author Organization [facility] Address [facility] [place] [address] Care Team Providers Care Opal Polisher Name Role Phone Rustam Ulloa MD Primary [...] 01/15/2012 Dexa Scan (General) 01/15/2012 Pneumococcal Vaccine: 50+ Ye ars (1 of 1 - PCV) [...] Insurance MEDICARE [employer] [place] Care Teams Opal Polisher Relationship Specialty Start Date End Date Rustam Ulloa MD [address] [place] [address] PCP - General FAMILY PRACTICE 02/26/20
--- OUTSIDE RECORDS SUMMARY | 2024-08-21 12:46 | XMS_ITS | Clinical Summary ---
Author Organization [facility] (formerly [facility]) at the [facility] Office Center Address [address] [place] [address] Care Team Providers Care Nursing Administrator Name Role Phone Rustam Ulloa MD Primary Care Provider Dusty CREWS MD, Floyd Real Unavailable [phone] Allergies Active Allergy Reactions Criticality Noted Date Comments Erythromycin Unknown 01/27/2020 Sulfa (Sulfonamide Antibiotics) Itching Low 12/04 Medications multivitamin capsule Take 1 capsule by mouth daily Active atorvastatin (LIPITOR) 10 mg tablet Take 1 tablet (10 mg total) by mouth nightly at bedtime 1 Active ascorbic acid (VITAMIN C) 500 mg tablet,chewable Take 1 tablet/chew tab (500 mg total) by mouth daily Active cholecalciferol (VITAMIN D-3) 2000 unit capsule 1 capsule (2,000 Units total) Active vobrf-2-qiu-epa -fish oil 300-1,000 mg capsule,delayed release(DR/EC) Activ [...] mg total) by mouth daily 4 Active amoxicillin-cla vulanate (AUGMENTIN) 875-125 mg per tablet Take 1 tablet by mouth 2 (two) times a day 5 Active predniSONE (DELTASONE) 20 mg tablet 5 Active Active Problems Problem Noted Date Diagnosed Date ILD (interstitial lung disease) 09/27/2023 Pulmonary hypertension, unspecified 01/04/2022 Pulmonary hypertension 01/04/2022 Acute pharyngitis 09/26/2021 Pharyngeal dysphagia 04/18/2020 Vocal cord paralysis, unilateral complete 2019 Encounters Date Type Department Care Team Description 08/18/2024 2:08 PM CDT - 08/18/2024 11:59 PM CDT Hospital Encounter [facility]) [address] [place] [address] Arrived Discharge Disposition: Discharge to home or self care 08/14/2024 Telephone [facility] Pulmonary [address] [facility] [address]th [place] [address] [place] [address] Moira Horton CMA 08/11/2024 Telephone [facility] Pulmonary [facility] 8th [place] [address] [place] [address] Moira Horton CMA 08/07/2024 Telephone [facility] Pulmonary [facility] 8th [place] [address] [place] [address] Alesia Daniel RN 08/06/2024 Telephone [facility] Pulmonary [facility] 8th [place] [address] [place] [address] Alesia Daniel RN 07/20/2024 9:45 AM CDT Office Visit [facility] Otolaryngology [address] [place] [address] Floyd Montano II, MD Vocal cord paralysis, unilateral complete (Primary Dx); Pharyngeal dysphagia 07/17/2024 9:45 AM CDT Office Visit [facility] Pulmonary [address] [facility] 8th [place] [address] [place] [address] Jos Dow MD ILD (interstitial lung disease) (HCC) (Primary Dx); Nocturnal hypoxemia; Physical deconditioning; Lupus disease of lung (HCC) 07/17/2024 8:20 AM CDT - 07/17/2024 11:59 PM CDT Hospital Encounter [facility] Pulmonary [address] [facility] [address] [place] [address] ILD (interstitial lung disease) (HCC) Discharge Disposition: [...] on file Legal Sex Female 2:56 AM 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 Gender Identity Not on file Sexual Orientation [...] history exists Medical Devices Implanted Type Area Drilling Field Operator Device Identifier Shelf Expiration Date Model / Serial / Lot Bioform Medical [id number] Prolaryn Gel Waterbased Injectable Temporary Implant 1ml Vocal Latex Free - [id number] Implanted:Qty: 1 on 02/22/2021 by Floyd Montano II, MD at [facility] Left: Throat [employer] [id number] 09/23/2022 [id number] / / [id number] Procedures Procedure Name Priority Date/Time Associated Diagnosis Comments CT BODY OUTSIDE REFERENCE Routine 08/18/2024 2:08 PM CDT PULMONARY FUNCTION TEST (PFT) Routine 07/17/2024 8:57 AM CDT ILD (interstitial lung disease) (HCC) from Last 3 Months Results * CT Body Outside Reference (08/18/2024 2:08 PM CDT) Impressions MILY_[facility] - 08/18/2024 2:08 PM CDT These images are for Reference purposes only and have not been reviewed by [facility] Radiology. There will be no report generated by a [facility] Radiologist. Narrative RADMANUEL_[facility] - 08/18/2024 2:08 PM CDT EXAMINATION: Images For Reference Purposes Only us Jos Dow MD IMG CT PROCEDURES Final Result RAD_PACS_[facility] * Pulmonary Function Test - (07/17/2024 8:57 AM CDT) FVC PRE 1.30 L [facility] FVC %PRE PRED 61 % [facility] FEV1 PRE 1.13 L [facility] FEV1 %PRE PRED 69 % [facility] FEV1/FVC PRE 87.3 % [facility] Anatomical Region Laterality Modality PFT 07/17/2024 8:24 [...] and %HbO2 is age dependent. However, the [facility] Pulmonary Function Laboratory defines hypoxemia as a PO2 <55 or a %HbO2 <89. Starting on May 2024 the [facility] Pulmonary Function Laboratory utilizes race neutral GLI Global normative equations. Narrative 07/17/2024 3:53 PM CDT Table formatting from the original result was not included. [facility] Division of Pulmonary & Critical Care Medicine [address] [place] [address]; [place] [address]; [place] [address]; [phone] Pulmonary Function Laboratory Pulmonary Stress Test Simple/Oxygen [...] Work [distance (m) x body wt (kg)]: 34438 kg.m (normal >60,000kg.m) Oxygen required to maintain [...] the written final report. PFT performed at:->[facility] Adult PFT Lab- [facility]-8D Procedure:->Spirometry Procedure:->Oxygen Assessment [...] inal Result from Last 3 Months Insurance [facility] MEDICARE ADVANTAGE [facility] MEDICARE ADVANTAGE [facility] ADV[facility]AGE MEDICARE [facility] Address: [address] [address] [place] [address] Advance Directives For more information, please contact: [phone] Documents on File Type Date Recorded Patient Ice House Supervisor Expl anation Power of Development Executive 02/22/2021 5:37 AM ADVANCE DIRECTIVE 06/08/2020 12:00 AM POWER OF ECOLOGICAL TECHNICAL OFFICER FINANCIAL/MEDICAL * Full Code (Latest Code Status on File) Date Activated Date Inactivated Comments 02/22/2021 8:33 AM 02/22/2021 1:34 PM Care Teams Nursing Administrator Relationship Specialty Start Date End Date Rustam Ulloa MD PCP - General Family Practice 01/19/20 Floyd Montano II, MD Consulting Physician Otolaryngology 02/22/21
--- OUTSIDE RECORDS SUMMARY | 2024-08-21 12:46 | XMS_ITS | Encounter Summary ---
Author Organization [facility] Address [facility] [place] [address] Care Team Providers Care Continuous Improvement Coach Name Role Phone Rustam Ulloa MD Primary Care Provider Encounter Details Date Type Department Care Team (Late st Contact Info) Description 02/23/2020 Prep for Procedure [facility] [place] [id number] Hafsa Hernadez MD [address] [facility] [address] [place] [address] Social History Tobacco Use Types Packs/Day Years [...] AM [facility] Comment: A Not Detected (negative) test [...] providers and patients using the following websites: https://www.Vigiglobe.JDCPhosphate/home/Covid-19/HCP/QuestIVD/fact- sheet.html https://www.Vigiglobe.JDCPhosphate/home/Covid-19/Patients/ QuestIVD/fact-sheet.html This test has been authorized by the FDA under an Emergency Use Authorization (EUA) for use by authorized laboratories. Due to the current public health emergency, [facility] is receiving a high volume of samples [...] about COVID-19 can be found at the [employer] website: www.City Notes.JDCPhosphate/Covid19. Test performed at [facility] [place] [address] [place] [address] Director: JALEESA DILLON DO,MPH FIRST TEST NO 02/23/2020 11:33 AM T [facility] EMPLOYED IN [facility] NO 02/23/2020 11:33 AM CDT [facility] SYMPTOMATIC DEFINED BY CDC NO 02/23/2020 11:33 AM CDT [facility] DATE OF SYMPTOM ONSET NO 02/23/2020 11:40 AM CDT [facility] HOSPITALIZATION STATUS NO 02/23/2020 11:33 AM CDT [facility] PATIENT IN ICU NO 02/23/2020 11:33 AM CDT [facility] RESIDENT OF [facility] NO 02/23/2020 11:33 AM CDT [facility] NOT 02/23/2020 11:40 AM CDT [facility] PATIENT'S RACE WHITE OR 02/23/2020 11:33 AM CDT [facility] ETHNICITY NONHISPANIC 02/23/2020 11:33 AM CDT [facility] SOURCE (QST) NASOPHARYNGEAL SWAB 02/23/2020 11:33 AM CDT [facility] NASOPHARYNGEAL SWAB / Unknown 02/23/2020 10:19 AM CDT us Hafsa Hernadez MD MICROBIOLOGY - GENERAL ORDERAB LES Final Result [facility] [address] [place] [address], [facility] [id number] [place] [address], documented in this encounter Visit Diagnoses Diagnosis Diarrhea- Primary Hoarseness Dysphonia documented in this encounter Additional Health Concerns Infection Onset Date Last Indicated Resolved Time COVID-19 Rule Out 02/23/2020 02/23/2020 02/24/2020 11:15 AM CDT documented as of this encounter Care Teams Continuous Improvement Coach Relationship Specialty Start Date End Date Rustam Ulloa MD [address] [place] [address] PCP - General FAMILY PRACTICE 02/26/20 documented as of this encounter
--- OUTSIDE RECORDS SUMMARY | 2024-08-21 12:46 | XMS_ITS | Referral Summary ---
Author Organization [facility] at the Medical Office Center Address [address] [place] [address] Care Team Providers Care Foundry Finisher Name Role Phone Rustam Ulloa MD Primary Care Provider Dusty CREWS MD, Floyd Real Unavailable [phone] Encounters Date Type Department Care Team Description 08/18/2024 2:08 PM CDT - 08/18/2024 11:59 PM CDT Hospital Encounter [facility] ([facility]) [address] [place] [address] Arrived Discharge Disposition: Discharge to home or self care 08/14/2024 Telephone [facility] Pulmonary [address] [facility] 8th [place] [address] [place] [address] Moira Horton [facility] 08/11/2024 Telephone [facility] Pulmonary [address] [facility] 8th [place] [address] [place] [address] Moira Horton CMA 08/07/2024 Telephone [facility] Pulmonary [address] [facility] [address]th [place] [address] [place] [address] Alesia Daniel RN 08/06/2024 Telephone [facility] Pulmonary [address] [facility] 8th [place] [address] [place] [address] Alesia Daniel RN 07/20/2024 9:45 AM CDT Office Visit [facility] Otol[facility] [address] [place] [address] Floyd Montano II, MD Vocal cord paralysis, unilateral complete (Primary Dx); Pharyngeal dysphagia 07/17/2024 8:20 AM CDT - 07/17/2024 11:59 PM CDT Hospital Encounter [facility] Pulmonary [address] [facility] [address] [place] [address] ILD (interstitial lung disease) (HCC) Discharge Disposition: Discharge to home or self care 07/17/2024 9:45 AM CDT Office Visit [facility] Pulmonary [address] [facility] 8th [place] [address] [place] [address] Jos Dow MD ILD (interstitial lung disease) (HCC) (Primary Dx); Nocturnal hypoxemia; Physical deconditioning; Lupus disease of lung ([facility]) from Last 3 Months Allergies Active Allergy [...] capsule 1 capsule (2,000 Units total) Active rzstr-3-ynh-epa -fish oil 300-1,000 mg capsule,delayed release(DR/EC) Activ [...] on file 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 Gender Identity Not on file Sexual Orientation [...] on file Medical Devices Implanted Type Area Thermal Molder Device Identifier Shelf Expiration Date Model / Serial / Lot Bioform Medical [id number] Prolaryn Gel Waterbased Injectable Temporary Implant 1ml Vocal Latex Free - [id number] Implanted:Qty: 1 on 02/22/2021 by Floyd Montano II, MD at [facility] Left: Throat [employer] [id number] 09/23/2022 [id number] / / [id number] Procedures Procedure Name Priority Date/Time Associated Diagnosis Comments CT BODY OUTSIDE REFERENCE Routine 08/18/2024 2:08 PM CDT PULMONARY FUNCTION TEST (PFT) Routine 07/17/2024 8:57 AM CDT ILD (interstitial lung disease) (HCC) from Last 3 Months Results * CT Body Outside Reference (08/18/2024 2:08 PM CDT) Impressions [facility] - 08/18/2024 2:08 PM CDT These images are for Reference purposes only and have not been reviewed by [facility] Radiology. There will be no report generated by a [facility] Radiologist. Narrative RAD_PACS_[facility] - 08/18/2024 2:08 PM CDT EXAMINATION: Images For Reference Purposes Only Jos Dow MD IM CT PROCEDURES Final Result RAD_[facility] * Pulmonary Function Test - (07/17/2024 8:57 AM CDT) FVC PRE 1.30 L [facility] FVC %PRE PRED 61 % [facility] FEV1 PRE 1.13 L [facility] FEV1 %PRE PRED 69 % [facility] FEV1/FVC PRE 87.3 % [facility] Anatomical Region Laterality Modality PFT 07/17/2024 8:24 [...] and %HbO2 is age dependent. However, the [facility] Pulmonary Function Laboratory defines hypoxemia as a PO2 <55 or a %HbO2 <89. Starting on May 2024 the [facility] Pulmonary Function Laboratory utilizes race neutral GLI Global normative equations. Narrative 07/17/2024 3:53 PM CDT Table formatting from the original result was not included. [facility] Division of Pulmonary & Critical Care Medicine [address] [place] [address]; [address] [facility]; [place] [address]; [phone] Pulmonary Function Laboratory Pulmonary Stress Test Simple/Oxygen [...] Work [distance (m) x body wt (kg)]: 86701 kg.m (normal >60,000kg.m) Oxygen required to maintain [...] with the written final report. PFT performed at:->[facility] Adult PFT Lab- [facility]-8D Procedure:->Spirometry Procedure:->Oxygen Assessment [...] inal Result from Last 3 Months Insurance [facility] MEDICARE ADVANTAGE [facility] [facility] MEDICARE ADVANTAGE [employer] [facility] MEDICARE ADVANTAGE MEDICARE Advance Directives For more information, please contact: [phone] Documents on File Type Date Recorded Patient Medical Administrative Specialist Expl anation Power of National Sales Manager 02/22/2021 5:37 AM ADVANCE DIRECTIVE 06/08/2020 12:00 AM POWER OF BELLSTAND ATTENDANT FINANCIAL/MEDICAL * Full Code (Latest Code Status on File) Date Activated Date Inactivated Comments 02/22/2021 8:33 AM 02/22/2021 1:34 PM Care Teams Foundry Finisher Relationship Specialty Start Date End Date Rustam Ulloa MD PCP - General Family Practice 01/19/20 Floyd Montano II, MD Consulting Physician Otolaryngology 02/22/21
== END 2024-08-21 12:45 | disposition home or self-care (01) ==
LOC: ANHCARD 12:44
PROVIDERS: PCP Family Medicine; Visit Provider Internal Medicine Critical Care Medicine
DX: I35.8 Other nonrheumatic aortic valve disorders (principal); I35.0 Nonrheumatic aortic (valve) stenosis; I35.1 Nonrheumatic aortic (valve) insufficiency; I70.0 Atherosclerosis of aorta; J84.112 Idiopathic pulmonary fibrosis; J84.9 Interstitial pulmonary disease, unspecified
CPT/HCPCS: 93306

== ENCOUNTER 2024-11-16 14:40 | Outpatient (CLI) | payer MEDICARE, MEDICAID, SELFPAY ==
--- OUTSIDE RECORDS SUMMARY | 2024-11-16 14:42 | XMS_ITS | Referral Summary ---
Author Organization [facility] at the Medical Office Center Address [address] [place] [address] Care Team Providers Care Insole And Outsole Splitter Name Role Phone Rustam Ulloa MD Primary Care Provider Dusty CREWS MD, Floyd Real Unavailable [phone] Encounters Date Type Department Care Team Description 11/11/2024 Telephone [facility] Pulmonary [address] [facility] [address]th [place] [address] [place] [address] Sara Leal RN 09/11/2024 Telephone [facility] Pulmonary [address] [facility] [address]th [place] [address] [place] [address] Alesia Daniel, RASHAD 09/03/2024 Documentation [facility] Pulmonary [address] [facility] [address]th [place] [address] [place] [address] Jos Dow MD Test Results 09/03/2024 Telephone [facility] Pulmonary [address] [facility] [address]th [place] [address] [place] [address] Alesia Daniel, RN POC 09/02/2024 Telephone [facility] Pulmonary [address] [facility] [address]th [place] [address] [place] [address] Moira Horton CMA 08/27/2024 Documentation [facility] Pulmonary [address] [facility] [address]th [place] [address] [place] [address] Jos Dow MD 08/18/2024 2:08 PM CDT - 08/18/2024 11:59 PM CDT Hospital Encounter [facility] ([facility]) [address] [place] [address] Discharge Disposition: Discharge to home or self care from Last 3 Months Allergies Active Allergy [...] capsule 1 capsule (2,000 Units total) Active sdulx-2-bvy-epa -fish oil 300-1,000 mg capsule,delayed release(DR/EC) Activ [...] times a day 5 Active predniSONE (DELTASONE) 5 mg tablet Take 1 tablet (5 mg) by mouth daily 90 tablet 3 5 08/28/19 26 Active Active Problems Problem Noted Date Diagnosed [...] on file 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 Gender Identity Not on file Sexual [...] on file Medical Devices Implanted Type Area Agent Licensing Clerk Device Identifier Shelf Expiration Date Model / Serial / Lot Bioform Medical [id number] Prolaryn Gel Waterbased Injectable Temporary Implant 1ml Vocal Latex Free - [id number] Implanted:Qty: 1 on 02/22/2021 by Floyd Montano II, MD at [facility] Left: Throat [employer] [id number] 09/23/2022 [id number] / / [id number] Procedures Procedure Name Priority Date/Time Associated Diagnosis Comments CT BODY OUTSIDE REFERENCE Routine 08/18/2024 2:08 PM CDT from Last 3 Months Results * CT Body Outside Reference (08/18/2024 2:08 PM CDT) Impressions [facility] - 08/18/2024 2:08 PM CDT These images are for Reference purposes only and have not been reviewed by [facility] Radiology. There will be no report generated by a [facility] Radiologist. Narrative [facility] - 08/18/2024 2:08 PM CDT EXAMINATION: Images For Reference Purposes Only Jos Dow MD IM CT PROCEDURES Final Result [facility] from Last 3 Months Insurance [facility] MEDICARE ADVANTAGE [facility] Address: [address] [address] [place] [address] [facility] MEDICARE ADVANTAGE [facility] Address: [address] [address] [place] [address] [facility] MEDICARE ADVANTAGE [facility] Address: [address] [address] [place] [address] MEDICARE Advance Directives For more information, please contact: [phone] Documents on File Type Date Recorded Patient Developmental Writing Instructor Expl anation Power of Restaurant Cashier 02/22/2021 5:37 AM ADVANCE DIRECTIVE 06/08/2020 12:00 AM POWER OF WIENER PACKER FINANCIAL/MEDICAL * Full Code (Latest Code Status on File) Date Activated Date Inactivated Comments 02/22/2021 8:33 AM 02/22/2021 1:34 PM Care Teams Insole And Outsole Splitter Relationship Specialty Start Date End Date Rustam Ulloa MD PCP - General Family Practice 01/19/20 Floyd Montano II, MD Consulting Physician Otolaryngology 02/22/21
--- OUTSIDE RECORDS SUMMARY | 2024-11-16 14:42 | XMS_ITS | Clinical Summary ---
Author Organization [facility] Address [facility] [place] [address] Care Team Providers Care Oil And Gas Exploration Technician Name Role Phone Rustam Ulloa MD Primary [...] 2:36 PM CDT Height 154.9 cm (5' 1) 02/19/2020 2:36 PM CDT Body Mass Index 27.59 02/19/2020 2:36 PM CDT Plan of Treatment Health Maintenance Due Date Last Done Comments Hepatitis C 1965 DTaP, Tdap and Td Vaccines ( 1 - Tdap) 1966 Pneumococcal Vaccine: 50+ Ye ars (1 of 1 - PCV) 1997 Zoster Vaccines (1 of 2) 1997 Annual Medicare Wellness Visit 01/15/2012 Dexa Scan (General) 01/15/2012 RSV Immunization or 60+ Years (1 [...] Insurance MEDICARE [employer] Care Teams Oil And Gas Exploration Technician Relationship Specialty Start Date End Date Rustam Ulloa MD [address] [place] [address] PCP - General FAMILY PRACTICE 02/26/20
--- OUTSIDE RECORDS SUMMARY | 2024-11-16 14:42 | XMS_ITS | Clinical Summary ---
Author Organization [facility] Office Center Address [address] [place] [address] Care Team Providers Care Amortization Clerk Name Role Phone Rustam Ulloa MD Primary Care Provider Dusty CREWS MD, Floyd Real Unavailable [phone] Allergies Active Allergy Reactions Criticality Noted Date [...] capsule 1 capsule (2,000 Units total) Active uzaqs-7-she-epa -fish oil 300-1,000 mg capsule,delayed release(DR/EC) Activ [...] mouth daily 90 tablet 3 5 08/28/19 Active Active Problems Problem Noted Date Diagnosed Date ILD (interstitial lung disease) 09/27/2023 Pulmonary hypertension, unspecified 01/04/2022 Pulmonary hypertension 01/04/2022 Acute pharyngitis 09/26/2021 Pharyngeal dysphagia 04/18/2020 Vocal cord paralysis, unilateral complete 2019 Encounters Date Type Department Care Team Description 11/11/2024 Telephone [facility] Advanced Medicine [facility] [place] [address] [place] [address] Sara Leal RN 09/11/2024 Telephone [facility] 8th [place] [address] [place] [address] Alesia Daniel, RASHAD 09/03/2024 Documentation [facility] [address] [facility] 8th [place] [address] [place] [address] Jos Dwo MD Test Results 09/03/2024 Telephone [facility] 8th [place] [address] [place] [address] Alesia Daniel RN POC 09/02/2024 Telephone [facility] 8th [place] [address] [place] [address] Moira Horton CMA 08/27/2024 Documentation [facility] [address] [facility] Advanced Medicine 8th [place] [address] [place] [address] Jos Dow MD 08/18/2024 2:08 PM CDT - 08/18/2024 11:59 PM CDT Hospital Encounter 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 Gender Identity Not on file Sexual Orientation [...] Risk Assessment 02/22/2022 02/22/2021 Influenza Vaccine (#1) 2025 9, 01/13/2018, 12/26/2016, Additional history exists Medical Devices Implanted Type Area Optical Engineering Technician Device Identifier Shelf Expiration Date Model / Serial / Lot Bioform Medical [id number] Prolaryn Gel Waterbased Injectable Temporary Implant 1ml Vocal Latex Free - [id number] Implanted:Qty: 1 on 02/22/2021 by Floyd Montano II, MD at [facility] Left: Throat Bioform Medical [id number] 09/23/2022 [id number] / / [id number] Procedures Procedure Name Priority Date/Time Associated Diagnosis Comments CT BODY OUTSIDE REFERENCE Routine 08/18/2024 2:08 PM CDT from Last 3 Months Results * CT Body Outside Reference (08/18/2024 2:08 PM CDT) Impressions [facility]_PACS_[facility] - 08/18/2024 2:08 PM CDT These images are for Reference purposes only and have not been reviewed by [facility]iology. There will be no report generated by a [facility] Radiologist. Narrative RAD_PACS_[facility] - 08/18/2024 2:08 PM CDT EXAMINATION: Images For Reference Purposes Only us Jso Dow MD IMG CT PROCEDURES Final Result RAD_PACS_[facility] from Last 3 Months Insurance IDPA [facility] MEDICARE ADVANTAGE IDPA [facility] MEDICARE ADVANTAGE IDID [employer] MEDICARE ADVANTAGE MEDICARE Advance Directives For more information, please contact: [phone] Documents on File Type Date Recorded Patient Magnetic Observer Expl anation Power of Production Artist 02/22/2021 5:37 AM ADVANCE DIRECTIVE 06/08/2020 12:00 AM POWER OF LINUX ARCHITECT FINANCIAL/MEDICAL * Full Code (Latest Code Status on File) Date Activated Date Inactivated Comments 02/22/2021 8:33 AM 02/22/2021 1:34 PM Care Teams Amortization Clerk Relationship Specialty Start Date End Date Rustam Ulloa MD PCP - General Family Practice 01/19/20 Floyd Montano II, MD Consulting Physician Otolaryngology 02/22/21
--- OUTSIDE RECORDS SUMMARY | 2024-11-16 14:42 | XMS_ITS | Encounter Summary ---
Author Organization [facility] Address [facility] [place] [address] Care Team Providers Care Room Service Associate Name Role Phone Rustam Ulloa MD Primary Care Provider Encounter Details Date Type Department Care Team (Late st Contact Info) Description 02/23/2020 Prep for Procedure [facility] [place], [place] [id number] Hafsa Hernadez MD [address] [facility] [address] [place] [address] Social History Tobacco Use Types Packs/Day Years [...] NOT DETECTED NOT DETECTED 02/24/2020 11:15 AM [facility] Comment: A Not Detected (negative) test [...] providers and patients using the following websites: https://www.South Beauty Group.Twelixir/home/Covid-19/HCP/QuestIVD/fact- sheet.html https://www.[employer].Twelixir/home/Covid-19/Patients/ QuestIVD/fact-sheet.html This test has been authorized by the FDA under an Emergency Use Authorization (EUA) for use by authorized laboratories. Due to the current public health emergency, [employer] is receiving a high volume of samples [...] about COVID-19 can be found at the [employer] website: www.startuply.Twelixir/Covid19. Test performed at [facility] [place] [address] [place] [address] Director: JALEESA DILLON DO,MPH FIRST TEST NO 02/23/2020 11:33 AM T [facility] EMPLOYED IN [facility] NO 02/23/2020 11:33 AM CDT [facility] SYMPTOMATIC DEFINED BY CDC NO 02/23/2020 11:33 AM CDT [facility] DATE OF SYMPTOM ONSET NO 02/23/2020 11:40 AM CDT [facility] HOSPITALIZATION STATUS NO 02/23/2020 11:33 AM CDT [facility] PATIENT IN ICU NO 02/23/2020 11:33 AM CDT [facility] RESIDENT OF [facility] NO 02/23/2020 11:33 AM CDT [facility] NOT 02/23/2020 11:40 AM CDT [facility] PATIENT'S RACE WHITE OR 02/23/2020 11:33 AM CDT [facility] ETHNICITY NONHISPANIC 02/23/2020 11:33 AM CDT [facility] SOURCE (QST) NASOPHARYNGEAL SWAB 02/23/2020 11:33 AM CDT [facility] NASOPHARYNGEAL SWAB / Unknown 02/23/2020 10:19 AM CDT us Hafsa Hernadez MD MICROBIOLOGY - GENERAL ORDERAB LES Final Result [facility] [address] [place] [address], [employer] [facility] [id number] [place] [address], documented in this encounter Visit Diagnoses Diagnosis Diarrhea- Primary Hoarseness Dysphonia documented in this encounter Additional Health Concerns Infection Onset Date Last Indicated Resolved Time COVID-19 Rule Out 02/23/2020 02/23/2020 02/24/2020 11:15 AM CDT documented as of this encounter Care Teams Room Service Associate Relationship Specialty Start Date End Date Rustam Ulloa MD [address] [place] [address] PCP - General FAMILY PRACTICE 02/26/20 documented as of this encounter
[2024-11-16 17:34] LABS: Hematocrit 42.8 % (37.0-47.0); Hemoglobin 13.9 g/dL (12.0-15.0); Immature Granulocyte Percent A 0.5 % (0-0.5); Lymphocytes Absolute Auto 1.62 K/mm3 (0.9-3.2); Mean Corpuscular HGB Conc 32.5 g/dl (32-36); Mean Corpuscular Hemoglobin 28.7 pg (26-34); Mean Corpuscular Volume 88.4 fl (80-100); Nucleated Red Blood Cells Absolute Auto 0.000 K/mm3 (0.0-0.012); Nucleated Red Blood Cells Perc 0.0 % (0.0-0.2); Platelet Count Result 355 k/mm3 (150-375); Red Blood Count 4.84 M/mm3 (4.2-5.4); White Blood Count 9.6 K/mm3 (4.5-10.0)
[2024-11-16 17:59] LABS: Alanine Aminotransferase 18 U/L (6-35); Albumin Level 4.4 g/dL (3.5-5.1); Alkaline Phosphatase 56 U/L (38-126); Anion Gap 8 mmol/L (4-12); Aspartate Amino Transferase 50 U/L (14-36); Bilirubin,Total 0.4 mg/dL (0.2-1.3); Blood Urea Nitrogen 15 mg/dL (7-17); Calcium 10.0 mg/dL (8.4-10.2); Carbon Dioxide 30 mmol/L (22-30); Chloride 90 mmol/L (98-107); Estimated Glomerular Filt Rate > 60; Glucose 103 mg/dL (65-110); Potassium 4.2 mmol/L (3.4-5.0); Sodium 128 mmol/L (137-145); Total Protein 7.8 g/dL (6.3-8.2)
== END 2024-11-16 14:41 | disposition home or self-care (01) ==
LOC: ANHGOSHLAB 14:41
PROVIDERS: PCP Family Medicine; Visit Provider Family Medicine
DX: E78.5 Hyperlipidemia, unspecified (principal); I10 Essential (primary) hypertension; T14.8XXA Other injury of unspecified body region, initial encounter; X58.XXXA Exposure to other specified factors, initial encounter
CPT/HCPCS: 36415; 80053; 85025

== ENCOUNTER 2024-12-11 13:30 | Outpatient (RCR) | payer MEDICARE, MEDICAID, SELFPAY ==
[2024-08-14 09:06] VITALS: PULSE 81
== END 2024-12-11 23:59 | disposition home or self-care (01) ==
LOC: ANHCPREHAB 13:30
PROVIDERS: PCP Family Medicine; Visit Provider Internal Medicine Critical Care Medicine
DX: J84.9 Interstitial pulmonary disease, unspecified (principal)
CPT/HCPCS: 94625; G0239

== ENCOUNTER 2025-01-01 13:30 | Outpatient (RCR) | payer MEDICARE, MEDICAID, SELFPAY ==
[2024-12-13 00:02] VITALS: PULSE 81
== END 2025-01-01 16:02 | disposition home or self-care (01) ==
LOC: ANHCPREHAB 13:30
PROVIDERS: PCP Family Medicine; Visit Provider Internal Medicine Critical Care Medicine
DX: J84.9 Interstitial pulmonary disease, unspecified (principal); I10 Essential (primary) hypertension
CPT/HCPCS: G0239

== ENCOUNTER 2025-01-08 08:07 | Outpatient (CLI) | payer MEDICARE, MEDICAID, SELFPAY ==
--- OUTSIDE RECORDS SUMMARY | 2025-01-08 08:12 | XMS_ITS | Clinical Summary ---
Author Organization [facility] Address [facility]ending [facility] to [facility] [place] [address] Care Team Providers Care Restaurant Crew Person Name Role Phone Rustam Ulloa MD Primary [...] Insurance MEDICARE [employer] Care Teams Restaurant Crew Person Relationship Specialty Start Date End Date Rustam Ulloa MD [address] [place] [address] PCP - General FAMILY PRACTICE 02/26/20
--- OUTSIDE RECORDS SUMMARY | 2025-01-08 08:12 | XMS_ITS | Encounter Summary ---
Author Organization [facility] Address [facility] [place] [address] Care Team Providers Care Automobile And Property Underwriter Name Role Phone Rustam Ulloa MD Primary Care Provider Encounter Details Date Type Department Care Team (Late st Contact Info) Description 02/23/2020 Prep for Procedure [facility] [place], [place] [id number] Hafsa Hernadez MD [address] [facility] [address] [place] [address] Social History Tobacco Use Types Packs/Day Years [...] DETECTED 02/24/2020 11:15 AM [facility] General Assembly [facility] Comment: A Not Detected (negative) test [...] providers and patients using the following websites: https://www.Livevol.Elli/home/Covid-19/HCP/QuestIVD/fact- sheet.html https://www.Livevol.Elli/home/Covid-19/Patients/ QuestIVD/fact-sheet.html This test has been authorized by the FDA under an Emergency Use Authorization (EUA) for use by authorized laboratories. Due to the current public health emergency, [employer] is receiving a high volume of samples [...] about COVID-19 can be found at the [employer] website: www.Geostellar.Elli/Covid19. Test performed at [facility] [address] [place] [address] Director: JALEESA DILLON DO,MPH FIRST TEST NO 02/23/2020 11:33 AM T [facility] EMPLOYED IN [facility] NO 02/23/2020 11:33 AM CDT [facility] SYMPTOMATIC DEFINED BY CDC NO 02/23/2020 11:33 AM CDT [facility] DATE OF SYMPTOM ONSET NO 02/23/2020 11:40 AM CDT [facility] HOSPITALIZATION STATUS NO 02/23/2020 11:33 AM CDT [facility] PATIENT IN ICU NO 02/23/2020 11:33 AM CDT [facility] RESIDENT OF [facility] NO 02/23/2020 11:33 AM CDT [facility] NOT 02/23/2020 11:40 AM CDT [facility] PATIENT'S RACE WHITE OR 02/23/2020 11:33 AM CDT [facility] ETHNICITY NONHISPANIC 02/23/2020 11:33 AM CDT [facility] SOURCE (QST) NASOPHARYNGEAL SWAB 02/23/2020 11:33 AM CDT [facility] NASOPHARYNGEAL SWAB / Unknown 02/23/2020 10:19 AM CDT us Hafsa Hernadez MD MICROBIOLOGY - GENERAL ORDERAB LES Final Result [facility] [address] [place] [address], General Assembly [facility] [id number] [place] [address], documented in this encounter Visit Diagnoses Diagnosis Diarrhea- Primary Hoarseness Dysphonia documented in this encounter Additional Health Concerns Infection Onset Date Last Indicated Resolved Time COVID-19 Rule Out 02/23/2020 02/23/2020 02/24/2020 11:15 AM CDT documented as of this encounter Care Teams Automobile And Property Underwriter Relationship Specialty Start Date End Date Rustam Ulloa MD [address] [place] [address] PCP - General FAMILY PRACTICE 02/26/20 documented as of this encounter
--- OUTSIDE RECORDS SUMMARY | 2025-01-08 08:12 | XMS_ITS | Encounter Summary ---
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 Gender Identity Not on file Sexual Orientation Not on file documented as of this encounter Plan of Treatment Not on file documented as of this encounter Procedures Procedure Name Priority Date/Time Associated Diagnosis Comments SCAN - LABS 11/16/2024 documented in this encounter Results * SCAN - LABS (11/16/2024) us Provider Scanning Final Result documented in this encounter Visit Diagnoses Not on filedocumented in this encounter Care Teams Senior Interior Designer Relationship Specialty Start Date End Date Rustam Ulloa MD PCP - General Family Practice 01/19/20 Floyd Montano II, MD Consulting Physician Otolaryngology 02/22/21 documented as of this encounter
--- OUTSIDE RECORDS SUMMARY | 2025-01-08 08:12 | XMS_ITS | Clinical Summary ---
Author Organization [facility] Office Center Address [address] [place] [address] Care Team Providers Care Geothermal Electrical Engineer Name Role Phone Rustam Ulloa MD Primary Care Provider Dusty CREWS MD, Floyd Real Unavailable [phone] Allergies Active Allergy Reactions Criticality Noted Date [...] capsule 1 capsule (2,000 Units total) Active pfpyo-8-rtc-epa -fish oil 300-1,000 mg capsule,delayed release(DR/EC) Activ [...] Encounters Date Type Department Care Team Description 11/25/[address] [facility] [address] [facility] Medicine 8th [place] [address] [place] [address] Moira Horton CMA 11/25/[address] [facility] [address] [facility] Medicine [facility] [place] [address] [place] [address] Alesia Daniel RN 11/16/2024 Orders Only [facility] Scanning, Provider 11/11/[address] [facility] [address] [place] [address] [place] [address] Sara Leal, RASHAD from Last 3 Months Surgical History Surgery Date Site/Laterality Comments APPENDECTOMY HYSTERECTOMY 05/06/1985 - 05/05/1986 SECTION, CLASSIC x 2 ESOPHAGOGASTRODUODENOSCOPY with biopsy COLONOSCOPY W/ BIOPSIES THROAT SURGERY 06/06/2020 - 07/03/2020 ENDOMETRIAL FULGURATION VOCAL CORD INJECTION Medical History Medical History Date Comments Hypertension GERD (gastroesophageal reflux disease) Hoarseness Migraine Colitis Voice disorder Hyperlipidemia Ulcerative colitis Vocal cord paralysis left Family History Medical [...] on file Legal Sex Female 2:56 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 Gender Identity Not on file Sexual Orientation [...] history exists Medical Devices Implanted Type Area Pari Mutuel Ticket Cashier Device Identifier Shelf Expiration Date Model / Serial / Lot Bioform Medical [id number] Prolaryn Gel Waterbased Injectable Temporary Implant 1ml Vocal Latex Free - [id number] Implanted:Qty: 1 on 02/22/2021 by Floyd Montano II, MD at [facility] Left: Throat [employer] [id number] 09/23/2022 [id number] / / [id number] Procedures Procedure Name Priority Date/Time Associated Diagnosis Comments SCAN - LABS 11/16/2024 from Last 3 Months Results * SCAN - LABS (11/16/2024) us Provider Scanning Final Result from Last 3 Months Insurance IDPA [facility] MEDICARE ADVANTAGE [facility]IC[facility] Address: [address] [address] [place] [address] IDPA [facility] MEDICARE ADVANTAGE [facility]IC[facility] Address: [address] [address] [place] [address] IDPA [facility] MEDICARE ADVANTAGE MEDICARE Advance Directives For more information, please contact: [phone] Documents on File Type Date Recorded Patient Drupal Developer Expl anation Power of Office Bookkeeper 02/22/2021 5:37 AM ADVANCE DIRECTIVE 06/08/2020 12:00 AM POWER OF INSTRUMENT AND CONTROL TECHNICIAN FINANCIAL/MEDICAL * Full Code (Latest Code Status on File) Date Activated Date Inactivated Comments 02/22/2021 8:33 AM 02/22/2021 1:34 PM Care Teams Geothermal Electrical Engineer Relationship Specialty Start Date End Date Rustam Ulloa MD PCP - General Family Practice 01/19/20 Floyd Montano II, MD Consulting Physician Otolaryngology 02/22/21
--- NOTE | 2025-01-08 11:01 | WPDSIXMINUTE ---
Six Minute Walk Procedure Procedure Performed Pulmonary Stress Test (6 min walk) Six Minute Walk Six Minute Walk: This is a 6 minute walk test. The test was performed and interpreted in accordance with the 2014 ERS/ATS task force guidelines. Findings: The patient's resting room air oxygen saturation measured by pulse oximetry was 99%, the heart rate was 76 bpm, and the modified Otf dyspnea score was 2. Patient ambulated for 244 meters and oxygen saturation remained 91 to 93%. At the end of the study the heart rate was 124 bpm and the modified Otf dyspnea score was 3. The patient did not qualify for supplemental oxygen at rest or with ambulation. In comparison to previous 6 minute walk test on 08/13/2024, the ambulatory distance has decreased from 305 m to 244 m and the konrad saturation has improved from 88% to 91%.
== END 2025-01-08 08:08 | disposition home or self-care (01) ==
LOC: ANHPFT 08:08
PROVIDERS: PCP Family Medicine; Visit Provider Internal Medicine Critical Care Medicine
DX: J84.9 Interstitial pulmonary disease, unspecified (principal)
CPT/HCPCS: 94618

== ENCOUNTER 2025-02-17 07:11 | Outpatient (CLI) | payer MEDICARE, MEDICAID, SELFPAY ==
--- OUTSIDE RECORDS SUMMARY | 2025-02-17 07:16 | XMS_ITS | Encounter Summary ---
Author Organization [facility] Address [facility] [place] [address] Care Team Providers Care Service Worker Helper Name Role Phone Rustam Ulloa MD Primary Care Provider Encounter Details Date Type Department Care Team (Late st Contact Info) Description 02/23/2020 Prep for Procedure [facility] [place], [place] [phone] Hafsa Hernadez MD [address] [facility] [address] [place] [address] Social History Tobacco Use Types Packs/Day Years [...] NOT DETECTED NOT DETECTED 02/24/2020 11:15 AM [facility]NOTE 3] [facility] Comment: A Not Detected (negative) test [...] providers and patients using the following websites: https://www.Demo Lesson.Arthena/home/Covid-19/HCP/QuestIVD/fact- sheet.html https://www.Demo Lesson.Arthena/home/Covid-19/Patients/ QuestIVD/fact-sheet.html This test has been authorized by the FDA under an Emergency Use Authorization (EUA) for use by authorized laboratories. Due to the current public health emergency, [employer] is receiving a high volume of samples [...] about COVID-19 can be found at the [employer] website: www.SteelCloud.Arthena/Covid19. Test performed at [facility] [place] [address] [place] [address] Director: JALEESA DILLON DO,MPH FIRST TEST NO 02/23/2020 11:33 AM T [facility] EMPLOYED IN [facility] NO 02/23/2020 11:33 AM CDT [facility] SYMPTOMATIC DEFINED BY CDC NO 02/23/2020 11:33 AM CDT [facility] DATE OF SYMPTOM ONSET NO 02/23/2020 11:40 AM CDT [facility] HOSPITALIZATION STATUS NO 02/23/2020 11:33 AM CDT [facility] PATIENT IN ICU NO 02/23/2020 11:33 AM CDT [facility] RESIDENT OF [facility] NO 02/23/2020 11:33 AM CDT [facility] NOT 02/23/2020 11:40 AM CDT [facility] PATIENT'S RACE WHITE OR 02/23/2020 11:33 AM CDT [facility] ETHNICITY NONHISPANIC 02/23/2020 11:33 AM CDT [facility] SOURCE (QST) NASOPHARYNGEAL SWAB 02/23/2020 11:33 AM CDT [facility] NASOPHARYNGEAL SWAB / Unknown 02/23/2020 10:19 AM CDT us Hafsa Hernadez MD MICROBIOLOGY - GENERAL ORDERAB LES Final Result [facility] [address] [place] [address], [employer] [id number] [place] [address], documented in this encounter Visit Diagnoses Diagnosis Diarrhea- Primary Hoarseness Dysphonia documented in this encounter Additional Health Concerns Infection Onset Date Last Indicated Resolved Time COVID-19 Rule Out 02/23/2020 02/23/2020 02/24/2020 11:15 AM CDT documented as of this encounter Care Teams Service Worker Helper Relationship Specialty Start Date End Date Rustam Ulloa MD [address] [place] [address] PCP - General FAMILY PRACTICE 02/26/20 documented as of this encounter
--- OUTSIDE RECORDS SUMMARY | 2025-02-17 07:16 | XMS_ITS | Clinical Summary ---
Author Organization [facility] Address [facility] [place] [address] Care Team Providers Care Slps Name Role Phone Rustam Ulloa MD Primary [...] COVID-19 Vaccine (1 - 2023-2 5 season) 2025 Influenza Adult (#1) 2025 Colorectal Cancer Screening Colonoscopy (10 Years) Discontinued 02/26/2020 Hepatitis A Vaccines Aged Out No long er eligible based on patient's age to complete this topic Meningococcal B Vaccine Aged Out No l onger eligible based on patient's age to complete this topic Meningococcal Vaccine Aged Out No alicia dona eligible based on patient's age to complete this topic RSV Immunizations Under 20 Months Aged Out No longer eligible based on patient's age to complete this topic Insurance MEDICARE [employer] Care Teams Slps Relationship Specialty Start Date End Date Rustam Ulloa MD [address] [place] [address] PCP - General FAMILY PRACTICE 02/26/20
--- OUTSIDE RECORDS SUMMARY | 2025-02-17 07:17 | XMS_ITS | Clinical Summary ---
Author Organization [facility] Office Center Address [address] [place] [address] Care Team Providers Care Gang Drill Press Operator Name Role Phone Rustam Ulloa MD Primary Care Provider Dusty CREWS MD, Floyd Real Unavailable [phone] Allergies Active Allergy Reactions Criticality Noted Date Comments Erythromycin Unknown 01/27/2020 Sulfa (Sulfonamide Antibiotics) Itching High 12/04 Medications multivitamin capsule Take 1 capsule by mouth daily Active atorvastatin (LIPITOR) 10 mg tablet Take 1 tablet (10 mg total) by mouth nightly at bedtime 1 Active ascorbic acid (VITAMIN C) 500 mg tablet,chewable Take 1 tablet/chew tab (500 mg total) by mouth daily Active cholecalciferol (VITAMIN D-3) 2000 unit capsule 1 capsule (2,000 Units total) Active akuef-[id number]-[id number]-epa -fish oil 300-1,000 mg capsule,delayed release(DR/EC) Activ [...] 90 tablet 3 5 08/28/19 26 Active omeprazole (PriLOSEC) 20 mg capsule TAKE 1 CAPSULE BY MOUTH IN THE MORNING 30-60 MINUTES BEFORE EATING FOR 30 DAYS 5 Active sucralfate (CARAFATE) 1 gram tablet Take 1 tablet (1 g total) by mouth daily for 30 days 5 Active Active Problems Problem Noted Date Diagnosed Date ILD (interstitial lung disease) 09/27/2023 Pulmonary hypertension, unspecified 01/04/2022 Pulmonary hypertension 01/04/2022 Acute pharyngitis 09/26/2021 Pharyngeal dysphagia 04/18/2020 Vocal cord paralysis, unilateral complete 2019 Encounters Date Type Department Care Team Description 01/15/2025 8:45 AM CDT Office Visit [facility] Medicine Pulmonary [facility] [address] [place] [address] [place] [address] Rui Noriega MD Interstitial lung disease (HCC) (Primary Dx); Chronic hypoxemic respiratory failure (HCC); Obesity, unspecified class, unspecified obesity type, unspecified whether serious comorbidity present 01/15/2025 7:42 AM CDT - 01/15/2025 11:59 PM CDT Hospital Encounter [facility] Medicine Pulmonary [facility] [address] [place] [address] ILD (interstitial lung disease) (HCC) Discharge Disposition: Discharge to home or self care 11/25/2024 Telephone [facility] Medicine Pulmonary [facility] [address] [place] [address] [place] [address] Moira Horton CMA 11/25/2024 Telephone [facility] [place] [address] [facility] [address] [place] [address] [place] [address] Alesia Daniel RN from Last 3 Months Surgical History Surgery [...] on file Legal Sex Female 2:56 AM ROOF TILER Gender Identity Not on file Sexual Orientation Not on file Obstetrics History Last Filed Vital Signs Vital Sign Reading Time Taken Comments Blood Pressure 129/83 01/15/2025 8:21 AM CDT Pulse 96 01/15/2025 8:21 AM CDT Temperature 36.3 C (97.4 F) 01/15/2025 8:21 AM CDT Respiratory Rate 18 01/15/2025 8:21 AM CDT Oxygen Saturation 97% 01/15/2025 8:21 AM CDT Inhaled Oxygen Concentration - - Weight 68 kg (150 lb) 01/15/2025 8:21 AM CDT Height 149.9 cm (4' 11) 01/15/2025 8:21 AM CDT Body Mass Index 30.3 01/15/2025 8:21 AM CDT Plan of Treatment Health Maintenance Due Date Last Done Comments Depression Screening 1945 Hepatitis C Screening 1945 Osteoporosis Screening-Bone Density Scan 1945 Hepatitis B Screening 1965 Zoster Vaccine (1 of 2) 1997 Well Visit 65+ 01/15/2012 Fall Risk Assessment 02/22/2022 02/22/2021 Covid-19 Vaccine (4 - 2024-2 6 season) 2025 03/21/2021, 07/29/2020, 07/08/2020 Influenza Vaccine (#1) 2025 , 01/15/2020, 01/12/2019, Additional history exists DTaP/Tdap/Td Vaccine (2 - Td or Tdap) 10/12/2029 10/13/2019 Pneumococcal vaccine 65+ Completed 021, 01/13/2018, 03/04/2012 Medical Devices Implanted Type Area Vessel Manager Device Identifier Shelf Expiration Date Model / Serial / Lot [employer] [id number] Prolaryn Gel Waterbased Injectable Temporary Implant 1ml Vocal Latex Free - [id number] Implanted:Qty: 1 on 02/22/2021 by Floyd Montano II, MD at [facility] Left: Throat [employer] [id number] 09/23/2022 [id number] / / [id number] Procedures Procedure Name Priority Date/Time Associated Diagnosis Comments PULMONARY FUNCTION TEST (PFT) Routine 01/15/2025 8:09 AM CDT ILD (interstitial lung disease) (HCC) from Last 3 Months Results * Pulmonary Function Test - (01/15/2025 8:09 AM CDT) FVC PRE 1.46 L [facility] FVC %PRE PRED 69 % [facility] FEV1 PRE 1.26 L [facility] FEV1 %PRE PRED 77 % [facility] FEV1/FVC PRE 86.3 % [facility] Anatomical Region Laterality Modality PFT 01/15/2025 7:45 AM CDT Narrative 01/15/2025 12:59 PM CDT Table formatting from the original result was not included. [facility] Division of Pulmonary & Critical Care Medicine [address] [place] [address]; [place] [address]; [place] [address]; [phone] Pulmonary Function Laboratory Pulmonary Stress Test Simple/Oxygen Assessment Patient: Corrine Leger Date: 01/15/2025 : 1945 Ht: 59 IN Wt: 150 LBS Time (min) Distance (ft)/ Dickson O2 L/M SpO2 HR Otf* BP FEV1 % Pred Rest: RA 98 90 0.5 113/77 1.30 79% Walk/Bike: 1 RA 97 103 0.5 2 RA 92 117 0.5 3 RA 93 113 0.5 4 RA 94 110 1 5 RA 94 112 1 6 min 0 sec RA 94 110 2 Recovery: 1 RA 98 102 2 116/81 1.28 78% 3 RA 99 100 2 *Otf rate of perceived exertion (1-10 dyspnea scale) Jeff, CHEST 2003; [id number] Walk Test Summary: Six Minute Walk Distance: 900 ft Six-minute Walk Work [distance (m) x body wt (kg)]: 96619 kg.m (normal >60,000kg.m) Oxygen required to maintain SpO2 greater than 90% during six minutes of walkin L/M Comments: O2A Interpretation: Breathing room air, SpO2 is normal at rest. During exercise sufficient to increase pulse, SpO2 falls but remains normoxemic. On this basis, SpO2 is adequate at rest breathing room air and while walking breathing room air. This level of exercise is associated with no significant change of FEV1. Andrea Man MD By signing this report, the attending pulmonary physician certifies that he/she has personally reviewed and interpreted the graphic and numerical data associated with this pulmonary function study and has reviewed and /or edited a preliminary draft report and agrees with the written final report. PFT performed at:->[facility] Adult PFT Lab- [id number] Procedure:->Spirometry Procedure:->Oxygen Assessment Titration Pulmonary Function Test Interpretation SPIROMETRY: The FEV1 to FVC ratio is normal. The FEV1 and FVC are reduced in a pattern suggestive of a restrictive abnormality. The inspiratory loop is appropriate for the expiratory flow abnormality. PULSE OXIMETRY: See Oxygen Assessment/Cardiopulmonary Exercise Study-Simple Impression: There is a mild restrictive ventilatory defect. However, measurement of lung volumes is suggested to confirm this if clinically indicated. Compared with most recent study, there has been no significant interval change. Andrea Man MD The attending pulmonary physician certifies a physician presence in the [facility] during the administration of aerosolized bronchodilator. The attending pulmonary physician certifies that he/she has reviewed and interpreted the graphic and numerical data of this pulmonary function study and agrees with the written final report. The lower limit of normal for PaO2 and %HbO2 is age dependent. However, the [facility] Pulmonary Function Laboratory defines hypoxemia as a PaO2 <56 mm Hg or a %HbO2 <89%. Starting on May of 2024 the [facility] Pulmonary Function Laboratory utilizes race neutral GLI Global normative equations. Jos Dow MD PFT ORDERABLES F inal Result from Last 3 Months Insurance [facility] MEDICARE ADVANTAGE [facility] MEDICARE ADVANTAGE [facility] MEDICARE ADVANTAGE MEDICARE Advance Directives For more information, please contact: [phone] Documents on File Type Date Recorded Patient Soda Tester Expl anation Power of Automatic Centrifugal Station Operator 02/22/2021 5:37 AM ADVANCE DIRECTIVE 06/08/2020 12:00 AM POWER OF TOILET ATTENDANT FINANCIAL/MEDICAL * Full Code (Latest Code Status on File) Date Activated Date Inactivated Comments 02/22/2021 8:33 AM 02/22/2021 1:34 PM Care Teams Gang Drill Press Operator Relationship Specialty Start Date End Date Rustam Ulloa MD PCP - General Family Practice 01/19/20 Floyd Montano II, MD Consulting Physician Otolaryngology 02/22/21
--- OUTSIDE RECORDS SUMMARY | 2025-02-17 07:17 | XMS_ITS | Encounter Summary ---
Author Organization [facility] Address [address] [place] [address] Phone Care Team Providers Care Garment Cutter Name Role Phone Rustam Ulloa MD Primary Care Provider Dusty CREWS MD, Floyd Real Unavailable [phone] Encounter Details Date Type Department Care Team [...] on file Legal Sex Female 2:56 AM TECHNICAL CONSULTANT Gender Identity Not on file Sexual Orientation [...] on filedocumented in this encounter Care Teams Garment Cutter Relationship Specialty Start Date End Date Rustam Ulloa MD PCP - General Family Practice 01/19/20 Floyd Montano II, MD Consulting Physician Otolaryngology 02/22/21 documented as of this encounter
[2025-02-17 09:29] LABS: Total Protein Urine Random 11 mg/dL; Ur Ttl Prot Creatinine Ratio 0.13 mg/mg (0-0.20)
[2025-02-18 15:09] LABS: Albumin 3.6 g/dL (2.9-4.4); Alpha-1-Globulin 0.3 g/dL (0.0-0.4); Alpha-2-Globulin 1.0 g/dL (0.4-1.0); Gamma Globulin 1.0 g/dL (0.4-1.8)
[2025-02-19 14:08] LABS: Osmolality, Urine 464 mOsmol/kg (.)
[2025-02-19 15:09] LABS: Albumin, U 58.3 % (.); Alpha-1-Globulin, U 3.3 % (.); Alpha-2-Globulin, U 8.1 % (.); Beta Globulin, U 13.6 % (.); Gamma Globulin, U 16.7 % (.)
[2025-02-19 16:08] LABS: Immunoglobulin A, Qn 310 mg/dL (64-422); Immunoglobulin G, Qn 927 mg/dL (586-1602); Immunoglobulin M, Qn 169 mg/dL (26-217)
[2025-02-21 01:06] LABS: Osmolality, Serum 264 mOsmol/kg (280-301)
== END 2025-02-17 07:12 | disposition home or self-care (01) ==
LOC: ANHLAB 07:14
PROVIDERS: PCP Family Medicine; Visit Provider Internal Medicine Nephrology
DX: E87.1 Hypo-osmolality and hyponatremia (principal); I10 Essential (primary) hypertension
CPT/HCPCS: 82570; 82784; 83930; 83935; 84155; 84156; 84165; 84166; 84300; 86334; 86335